=== PATIENT | female | born 1970 | race Two or more races ===

== ENCOUNTER 2020-06-10 16:01 | Outpatient (REF) | payer MEDICAID, SELFPAY ==
--- NOTE | ~2020-06-10 | MM_ITS ---
EXAMINATION: MM SCREENING DIGITAL BREAST TOMOSYNTHESIS, BILATERAL CLINICAL INFORMATION: Screening. Asymptomatic. The lifetime risk of breast cancer based on the Tyrer-Cuzick Model is 4%. COMPARISON: Mammography: 11/19/2018, 11/15/2017, 11/02/2016 TECHNIQUE: Digital breast tomosynthesis is performed in both the craniocaudal and mediolateral oblique views along with computer-aided detection (CAD). Synthesized 2D images are generated from the tomosynthesis. FINDINGS: There are scattered areas of fibroglandular density (ACR BI-RADS breast composition Category b). There are no significant masses, abnormal calcifications, or other abnormalities. Parenchymal pattern is similar to prior studies. No significant changes. MM/MM tomosynthesis screening BI IMPRESSION: No mammographic evidence of malignancy. ASSESSMENT: BI-RADS 1: Negative RECOMMENDATION: Routine annual mammography screening. This patient's information was entered into a reminder system with a target due date for their next mammogram.
== END 2020-06-10 16:02 | disposition home or self-care (01) ==
LOC: HO.MAMMO 16:01
PROVIDERS: PCP Internal Medicine; Visit Provider Internal Medicine
DX: Z12.31 Encounter for screening mammogram for malignant neoplasm of breast (principal)
CPT/HCPCS: 77063; 77067

== ENCOUNTER 2020-09-07 12:53 | Outpatient (REF) | payer MEDICAID, SELFPAY ==
[2020-09-13 22:47] LABS: HPV 16 RNA NOT DETECTED (NOT DETECTED); HPV mRNA E6/E7 rflx Detected (Not Detected)
== END 2020-09-07 12:54 | disposition home or self-care (01) ==
LOC: HO.LAB 12:53
PROVIDERS: PCP Internal Medicine; Visit Provider Obstetrics & Gynecology
DX: Z01.419 Encounter for gynecological examination (general) (routine) without abnormal findings (principal)
CPT/HCPCS: 87624; 87625; 88142

== ENCOUNTER 2020-09-24 13:05 | Outpatient (REF) | payer MEDICAID, SELFPAY | END 2020-09-24 13:06 | disposition home or self-care (01) | LOC: HO.LAB 13:05 | PROVIDERS: PCP Internal Medicine; Visit Provider Obstetrics & Gynecology | DX: R87.610 Atypical squamous cells of undetermined significance on cytologic smear of cervix (ASC-US) (principal); R87.810 Cervical high risk human papillomavirus (HPV) DNA test positive | CPT/HCPCS: 57420; 57456; 88305 ==

== ENCOUNTER 2020-10-11 14:21 | Outpatient (REF) | payer MEDICAID, SELFPAY | END 2020-10-11 14:22 | disposition home or self-care (01) | LOC: HO.LAB 14:21 | PROVIDERS: PCP Internal Medicine; Visit Provider Obstetrics & Gynecology | DX: R87.810 Cervical high risk human papillomavirus (HPV) DNA test positive (principal) | CPT/HCPCS: 57500; 57505; 88305 ==

== ENCOUNTER → 2020-10-25 13:12 | Outpatient (BNVA) | payer MEDICAID, SELFPAY | PROVIDERS: Visit Provider Obstetrics & Gynecology ==

== ENCOUNTER 2020-12-23 11:32 | Outpatient (REF) | payer MEDICAID, SELFPAY ==
--- NOTE | ~2020-12-23 | XR_ITS ---
EXAMINATION: XR CHEST XR RIBS, LEFT CLINICAL INFORMATION: Pleurodynia. COMPARISON: Chest radiographs dated 11/09/2018; left rib radiographs dated 09/18/2010. TECHNIQUE: Frontal and lateral views of the chest were obtained. 3 views of the left ribs were obtained. FINDINGS: Lungs are clear. No consolidation, pneumothorax, or pleural effusion. There is biapical pleural thickening. The cardiomediastinal silhouette and pulmonary vasculature are normal. Osseous structures are unremarkable. Ribs are intact. No fractures are identified. XR/XR chest 2V IMPRESSION: Unremarkable examination.
--- NOTE | ~2020-12-23 | XR_ITS ---
EXAMINATION: XR CHEST XR RIBS, LEFT CLINICAL INFORMATION: Pleurodynia. COMPARISON: Chest radiographs dated 11/09/2018; left rib radiographs dated 09/18/2010. TECHNIQUE: Frontal and lateral views of the chest were obtained. 3 views of the left ribs were obtained. FINDINGS: Lungs are clear. No consolidation, pneumothorax, or pleural effusion. There is biapical pleural thickening. The cardiomediastinal silhouette and pulmonary vasculature are normal. Osseous structures are unremarkable. Ribs are intact. No fractures are identified. XR/XR ribs LT 2V IMPRESSION: Unremarkable examination.
== END 2020-12-23 11:33 | disposition home or self-care (01) ==
LOC: HO.XRAY 11:32
PROVIDERS: PCP Internal Medicine; Visit Provider Family Medicine
DX: R07.81 Pleurodynia (principal); R09.1 Pleurisy; M81.0 Age-related osteoporosis without current pathological fracture
CPT/HCPCS: 71046; 71100

== ENCOUNTER → 2021-03-10 12:05 | Outpatient (BNVA) | payer MEDICAID, SELFPAY | PROVIDERS: PCP Internal Medicine; Visit Provider Obstetrics & Gynecology | DX: B37.2 Candidiasis of skin and nail (principal) | CPT/HCPCS: 99212 ==

== ENCOUNTER 2021-07-05 11:07 | Outpatient (REF) | payer MEDICAID, SELFPAY ==
--- NOTE | ~2021-07-05 | MM_ITS ---
EXAMINATION: MM SCREENING DIGITAL BREAST TOMOSYNTHESIS, BILATERAL CLINICAL INFORMATION: Screening. Asymptomatic. The lifetime risk of breast cancer based on the Tyrer-Cuzick Model is 7%. COMPARISON: Mammography: 06/10/2020, 11/19/2018, 11/15/2017 TECHNIQUE: Digital breast tomosynthesis is performed in both the craniocaudal and mediolateral oblique views along with computer-aided detection (CAD). Synthesized 2D images are generated from the tomosynthesis. FINDINGS: There are scattered areas of fibroglandular density (ACR BI-RADS breast composition Category b). There are no significant masses, abnormal calcifications, or other abnormalities. Parenchymal pattern is similar to prior studies. There is no developing density or architectural abnormality. Intramammary node again noted anterior 4:00 left breast. The axilla and skin contours are unremarkable. No significant changes. MM/MM tomosynthesis screening BI IMPRESSION: No mammographic evidence of malignancy. ASSESSMENT: BI-RADS 2: Benign RECOMMENDATION: Routine annual mammography screening. This patient's information was entered into a reminder system with a target due date for their next mammogram.
== END 2021-07-05 11:08 | disposition home or self-care (01) ==
LOC: HO.MAMMO 11:07
PROVIDERS: Visit Provider Internal Medicine
DX: Z12.31 Encounter for screening mammogram for malignant neoplasm of breast (principal)
CPT/HCPCS: 77063; 77067

== ENCOUNTER → 2021-07-07 15:32 | Outpatient (BNVA) | payer MEDICAID, SELFPAY | PROVIDERS: PCP Internal Medicine; Referring Provider Internal Medicine; Visit Provider Nurse Practitioner | DX: Z12.11 Encounter for screening for malignant neoplasm of colon (principal); K21.9 Gastro-esophageal reflux disease without esophagitis | CPT/HCPCS: 99212 ==

== ENCOUNTER 2021-07-08 14:48 | Outpatient (REF) | payer MEDICAID, SELFPAY ==
[2021-07-08 15:06] LABS: MANUAL DIFF FLAG NO
[2021-07-08 15:23] LABS: Basophils Percent Auto 0.4 % (0-2); Eosinophils Absolute Auto 0.1 X10*3/uL (0.0-0.4); Eosinophils Percent Auto 1.6 % (0-4); Hematocrit 42.4 % (37.0-47.0); Hemoglobin 13.8 g/dl (12.0-16.0); Imm Gran Abs Auto 0.02 X10*3/uL (0.00-0.03); Imm Gran Pct Auto 0.2 % (0.0-0.4); Lymphocytes Absolute Auto 1.9 X10*3/uL (1.2-4.9); Mean Corpuscular HGB Conc 32.5 g/dl (31.0-35.0); Mean Corpuscular Hemoglobin 29.7 pg (27.0-33.0); Mean Corpuscular Volume 91.2 fL (80.0-98.0); Mean Platelet Volume 10.8 fL (9.4-12.3); Monocytes Absolute Auto 0.5 X10*3/uL (0.1-1.2); Monocytes Percent Auto 5.6 % (2-11); Neutrophils Absolute Auto 5.6 x10*3/uL (2.0-8.3); Neutrophils Percent Auto 69.2 % (45-73); Platelet Count 335 X10*3/uL (160-400); Red Blood Count 4.65 X10*6/uL (4.20-5.50); Red Cell Distribution Width 12.7 % (11.0-16.0); White Blood Count 8.2 X10*3/uL (4.8-10.8)
[2021-07-08 15:54] LABS: Alanine Aminotransferase 12 U/L (0-31); Albumin Level 4.1 g/dL (3.5-5.0); Alkaline Phosphatase 127 U/L (39-117); Anion Gap 11 (12-20); Aspartate Amino Transferase 15 U/L (5-31); Bilirubin Total 1.1 mg/dL (0.0-1.0); Blood Urea Nitrogen 8 mg/dL (9-16); Calcium 9.8 mg/dL (8.4-10.2); Carbon Dioxide 29 mmol/L (22-29); Chloride 105 mmol/L (96-108); Estimated Glomerular Filt Rate > 60; Glucose Random 84 mg/dL (60-115); Potassium 4.2 mmol/L (3.3-5.1); Sodium 141 mmol/L (135-145); Total Protein 7.4 g/dL (6.5-8.0)
== END 2021-07-08 14:49 | disposition home or self-care (01) ==
LOC: HO.LAB 14:48
PROVIDERS: PCP Internal Medicine; Visit Provider Nurse Practitioner
DX: R10.13 Epigastric pain (principal)
CPT/HCPCS: 36415; 80053; 85025

== ENCOUNTER 2021-09-13 13:38 | Outpatient (REF) | payer MEDICAID, SELFPAY ==
[2021-09-19 09:05] LABS: HPV 16 RNA NOT DETECTED (NOT DETECTED); HPV mRNA E6/E7 rflx Detected (Not Detected)
== END 2021-09-13 13:39 | disposition home or self-care (01) ==
LOC: HO.LAB 13:38
PROVIDERS: Advanced Practice Midwife; PCP Internal Medicine; Visit Provider Obstetrics & Gynecology
DX: Z01.419 Encounter for gynecological examination (general) (routine) without abnormal findings (principal); Z11.51 Encounter for screening for human papillomavirus (HPV)
CPT/HCPCS: 87624; 87625; 88142

== ENCOUNTER 2021-10-04 11:18 | Day surgery (SDC) | payer MEDICAID, SELFPAY ==
[2021-09-28 15:34] VITALS: BMI 29.0
--- NOTE | 2021-10-03 08:47 | HO.ANESPROP2 ---
Documented by User: Domi Levine NP 10/03/21 08:49 HPI - Anesthesia Eval Consult details Narrative: 50yo F for Colonoscopy PMFSH Active Problems Active Problems: All Active Problems (Updated 09/13/21 @ 13:59 by Yayo Ron MD) Colon cancer screening (Acute) GERD (gastroesophageal reflux disease) (Acute) Skin candidiasis (Acute) ASCUS with positive high risk HPV (Acute) Well woman exam (Acute) Chronic sinusitis (Acute) Migraine (Acute) Vitamin D deficiency (Acute) Osteopenia (Acute) Past Medical History Medical History Chronic sinusitis Dysplasia of cervix, low grade (BETH 1) Migraine Osteopenia Vitamin D deficiency Family History Family History Father No problems noted. Mother Thyroid disease Osteoporosis Surgical History Surgical History H/O LEEP History of cholecystectomy Hx of abdominal hysterectomy Hx of section Hx of tonsillectomy Social History Social History Alcohol intake: never Patient Tobacco Use Status: Never used Tobacco Are you DNR?: No Advance Directives: No Advance Directives Information Provided: Yes Patient : No Meds Allergies Allergy/AdvReac Type Severity Reaction Status Date / Time risperidone Allergy Intermediate HIVES Verified 09/28/21 15:23 ibuprofen [From MOTRIN] Allergy Unknown STOMACH Verified 09/28/21 15:23 ACHE tramadol [TRAMADOL] AdvReac Intermediate GI PAIN Verified 09/28/21 15:23 shrimp and clams Allergy Unknown unk Uncoded 09/28/21 15:23 Home Medications Medication Instructions Recorded Confirmed Last Taken Type calcium carbonate 215 mg calcium 215 mg PO TID 09/07/20 09/28/21 Unknown History (500 mg) chewable tablet (Antacid Calcium) cholecalciferol (vitamin D3) 10 10 mcg PO DAILY 09/07/20 09/28/21 Unknown History mcg (400 unit) capsule epinephrine 0.3 mg/0.3 mL IM DIRECTED 07/07/21 Unknown History injection, auto-injector triamcinolone acetonide 55 mcg 2 spray INTRANASAL DAILY 07/07/21 09/28/21 Unknown History nasal spray aerosol cetirizine 10 mg tablet 1 tab PO DAILY 09/28/21 09/28/21 Unknown History nystatin 100,000 unit/gram topical TOPICAL BID 09/28/21 09/28/21 Unknown History cream Exam Exam Date and Time: October 03, 2021 0847 Height,Weight and Vital Signs: Height 5 ft 4 in Weight 76.657 kg Pertinent Lab Results Pertinent Lab Results: Laboratory Tests 07/08/21 07/08/21 15:05 15:05 WBC 8.2 Hgb 13.8 Hct 42.4 Plt Count 335 Sodium 141 Potassium 4.2 Chloride 105 Carbon Dioxide 29 BUN 8 L Creatinine 0.71 Assessment and Plan Assessment Anesthesia Assessment: Chart Reviewed Documented by User: Beatriz Maher MD 10/04/21 12:43 [facility] Past Medical History Medical History Chronic sinusitis Dysplasia of cervix, low grade (BETH 1) Migraine Osteopenia Vitamin D deficiency Family History Family History Father No problems noted. Mother Thyroid disease Osteoporosis Surgical History Surgical History H/O LEEP History of cholecystectomy Hx of abdominal hysterectomy Hx of section Hx of tonsillectomy History of Problems with Anesthesia: No Social History Social History Alcohol intake: never Patient Tobacco Use Status: Never used Tobacco Are you DNR?: No Advance Directives: No Advance Directives Information Provided: Yes Patient : No Meds Allergies Allergy/AdvReac Type Severity Reaction Status Date / Time risperidone Allergy Intermediate HIVES Verified 09/28/21 15:23 ibuprofen [From MOTRIN] Allergy Unknown STOMACH Verified 09/28/21 15:23 ACHE tramadol [TRAMADOL] AdvReac Intermediate GI PAIN Verified 09/28/21 15:23 shrimp and clams Allergy Unknown unk Uncoded 09/28/21 15:23 Home Medications Medication Instructions Recorded Confirmed Last Taken Type calcium carbonate 215 mg calcium 215 mg PO TID 09/07/20 09/28/21 Unknown History (500 mg) chewable tablet (Antacid Calcium) cholecalciferol (vitamin D3) 10 10 mcg PO DAILY 09/07/20 09/28/21 Unknown History mcg (400 unit) capsule epinephrine 0.3 mg/0.3 mL IM DIRECTED 07/07/21 Unknown History injection, auto-injector triamcinolone acetonide 55 mcg 2 spray INTRANASAL DAILY 07/07/21 09/28/21 Unknown History nasal spray aerosol cetirizine 10 mg tablet 1 tab PO DAILY 09/28/21 09/28/21 Unknown History nystatin 100,000 unit/gram topical TOPICAL BID 09/28/21 09/28/21 Unknown History cream Exam Airway Mallampati Class: II TM Dist: >3cm Neck ROM: Full Loose/Missing/Broken Teeth: No Heart: RRR Lungs: CTA Assessment and Plan Assessment Anesthesia Assessment: Anesthesia Plan Discussed Final Anesthetic Review History of Problems with Anesthesia: No NPO: Yes ASA Class: II Final Preanesthetic Review: Meds/Allgs Chart Reviewed, Consent Obtained/Reviewed and Anes Risks/Benef Reviewed Patient Risk: Low Procedure Risk: Low Anesthetic Plan Anesthetic Plan: MAC: Disposition: Standard PACU
[2021-10-04 11:38] VITALS: BP 121/87; PULSE 93; RESP 17; TEMP 36.3; O2SAT 97
[2021-10-04] MEDS: Lactated Ringers 1,000 ML 100 ML IVCONT (11:55)
--- NOTE | 2021-10-04 12:19 | MHC.SHP ---
Pre-Procedural Eval Section A Date of Service: 10/04/21 Section B Chief Complaint: screening Relevant Family History (Specify if Yes): No Relevant Social History: None Present Medications: see Short Stay Collaborative assessment Medical History: Significant History (Chronic sinusitis Dysplasia of cervix, low grade (BETH 1) Migraine Osteopenia Vitamin D deficiency) History of Previous Operations: Relevant previous surgery/procedure and date(s) ( H/O LEEP History of cholecystectomy Hx of abdominal hysterectomy Hx of section Hx of tonsillectomy) Allergies: Allergies Allergy/AdvReac Type Severity Reaction Status Date / Time risperidone Allergy Intermediate HIVES Verified 09/28/21 15:23 ibuprofen [From MOTRIN] Allergy Unknown STOMACH Verified 09/28/21 15:23 ACHE tramadol [TRAMADOL] AdvReac Intermediate GI PAIN Verified 09/28/21 15:23 shrimp and clams Allergy Unknown unk Uncoded 09/28/21 15:23 Review of Systems Sugical H&P ROS: Negative: Constitution, Cardiovascular, Respiratory, Neurological, Psychiatric, Hem-Onc, Allergic/Immunologic, Gastrointestinal, Genitourinary, Musculoskeletal, Integumentary, Endocrine and Eyes/Ears/Nose/Throat Exam Surgical H&P Exam: Normal: HEENT, Normal: Heart, Normal: Lungs, Normal: Extremities, Normal: Abdomen, Normal: Skin and Normal: Neurological Plan Diagnosis/Plan: Unchanged I have reviewed the history and physical and performed a pertinent physical examination on my patient. No changes have occurred unless specified.
--- NOTE | 2021-10-04 12:23 | P.BOP_ITS ---
Brief Operative Note Date of Service: 10/04/21 Pre-op diagnosis: screening colonoscopy Post-op diagnosis: same Procedure: see op note Surgeon: Ramón Rossi MD Anesthesia: MAC Was an Surface Supply Breathing Apparatus used for this Procedure?: No Estimated blood loss (mL): 0 Condition: stable Disposition: PACU
--- NOTE | 2021-10-04 12:23 | W.PM.OPN ---
Operative Note Operative Note Date of Service: 10/04/21 Narrative: Operative Information Procedure Description: Colonoscopy Indication: screening colonoscopy Anesthesia: MAC COLONOSCOPY Instrument: Olympus variable stiffness pediatric scope 190L Colonoscopy Monitoring: Vital signs and clinical assessment, continuous EKG monitoring, Pulse oximetry, Carbon Dioxide monitoring and blood pressure monitoring were done throughout the procedure. Colon withdrawal time was [] minutes. Procedure: The patient was placed in the left lateral decubitis position and pre-procedure medications were administered. After a digital rectal examination of the ano-rectum, the video colonoscope was inserted into the rectum and advanced through the colon to the cecum/TI. The colonoscope was slowly withdrawn in a retrograde panoramic fashion and the colon mucosa was carefully examined including a retroflexed view of the rectum. Findings and interventions are described below. Procedure Difficulty: moderate Findings: Terminal Ileum-normal Cecum:normal Ascending Colon:x 2 sessile polyps 15-18 mm removed with cold snare, with one of them raised with ORISE injection. The edges of one was ablated with sof ttip coag and then x 2 clips applied for hemostasis with hemospray. Transverse Colon -normal Descending Colon: x1 sessile polyp 18 mm removed with hot snare and clipped x 2 for hemostasis. Sigmoid Colon: normal Rectum: Retroflexion with small internal hemorrhoids, grade I Anorectum - normal Colon preparation: Dickinson Bowel Preparation Scale Right colon; 2 Transverse colon: 2 Left colon; 2 (0 = Unprepared colon segment with mucosa not seen due to solid stool that cannot be cleared. 1 = Portion of mucosa of the colon segment seen, but other areas of the colon segment not well seen due to staining, residual stool and/or opaque liquid. 2 = Minor amount of residual staining, small fragments of stool and/or opaque liquid, but mucosa of colon segment seen well. 3 = Entire mucosa of colon segment seen well with no residual staining, small fragments of stool or opaque liquid) Impression and Post Procedure Diagnosis: polyps internal hemorrhoids Plan: High fiber diet leaflet Avoid straining at stool, epsom salts and sitz bath, anusol supps or cream Repeat Colonoscopy in 8-12 months due to large polyps removed today or earlier if clinically indicated Above findings were reviewed with the patient and relevant handouts were provided if indicated.
[2021-10-04 13:45] VITALS: BP 106/66; PULSE 83; RESP 16; TEMP 36.2; O2SAT 97
[2021-10-04 14:00] VITALS: BP 115/77; PULSE 83; RESP 16; O2SAT 98
[2021-10-04 14:15] VITALS: BP 114/79; PULSE 69; RESP 16; TEMP 36.6; O2SAT 100
== END 2021-10-04 14:30 | disposition home or self-care (01) ==
PROVIDERS: PCP Internal Medicine; Visit Provider Internal Medicine Gastroenterology
PROC: 0DJD8ZZ Inspection of Lower Intestinal Tract, Via Natural or Artificial Opening Endoscopic (ICD-10-PCS; CPT 45378; principal; 2021-10-04 12:50)
DX: D12.2 Benign neoplasm of ascending colon (principal); D12.4 Benign neoplasm of descending colon; K64.0 First degree hemorrhoids; Z88.8 Allergy status to other drugs, medicaments and biological substances; K21.9 Gastro-esophageal reflux disease without esophagitis; J32.9 Chronic sinusitis, unspecified; G43.909 Migraine, unspecified, not intractable, without status migrainosus; M85.80 Other specified disorders of bone density and structure, unspecified site; E55.9 Vitamin D deficiency, unspecified; Z12.11 Encounter for screening for malignant neoplasm of colon; Z90.49 Acquired absence of other specified parts of digestive tract; Z87.410 Personal history of cervical dysplasia
CPT/HCPCS: 45385; 45381; 88305

== ENCOUNTER → 2021-10-17 14:03 | Outpatient (BNVA) | payer MEDICAID, SELFPAY | PROVIDERS: PCP Internal Medicine; Visit Provider Nurse Practitioner | DX: D12.2 Benign neoplasm of ascending colon (principal); D12.4 Benign neoplasm of descending colon; Z98.890 Other specified postprocedural states | CPT/HCPCS: 99212 ==

== ENCOUNTER 2021-11-22 18:09 | Emergency (ER) | payer MEDICAID, SELFPAY ==
--- NOTE | ~2021-11-22 | XR_ITS ---
EXAMINATION: XR SHOULDER, RIGHT CLINICAL INFORMATION: Pain, decreased range of motion COMPARISON: None TECHNIQUE: AP external rotation, Grashey, scapular Y, and axillary views of the right shoulder. FINDINGS: Osteopenia. No fracture. Glenohumeral and acromioclavicular alignment is anatomic with normal joint space. No abnormal soft tissue calcifications. XR/XR shoulder RT min 2V IMPRESSION: No evidence of acute osseous abnormality.
[2021-11-22 19:42] VITALS: BP 123/84; PULSE 81; RESP 16; TEMP 36.1; O2SAT 96; BMI 28.8
--- NOTE | 2021-11-22 20:27 | ED.GENADULT ---
HPI - General Adult General Chief complaint: Extremity Problem Stated complaint: R side pain radiating to arm & side Time Seen by Provider: 11/22/21 20:09 Source: patient Mode of arrival: ambulatory Limitations: no limitations History of Present Illness HPI narrative: 51 yo female with history of GERD, migraines, chronic back pain, osteoporosis who presents to the ER with acute onset of shooting right sided shoulder pain that started earlier this afternoon when she went to stand up from using the bathroom. She reports putting pressure on her right hand to assist herself in standing up off of the toilet when she felt shooting pain in her right shoulder going up into her head and neck and down her arm. She reports the pain is worse when she moves her right arm and it has been constant since this happened at around 4pm. She denies any falls or trauma. No numbness or tingling. No weakness. No neck pain. Mild headache. She took tylenol with no improvement. MD complaint: right shoulder pain x4 hours Onset (ago): hour(s) Location: right and upper extremity Radiation: neck and extremity Severity: severe Severity scale (1-10): 9 Quality: aching and sharp Pain Consistency: constant Relieving factors: immobilization Exacerbating factors: movement Associated symptoms: denies other symptoms Treatments prior to arrival: none Related Data Home Medications Medication Instructions Recorded Confirmed calcium carbonate 215 mg calcium 215 mg PO TID 09/07/20 09/28/21 (500 mg) chewable tablet (Antacid Calcium) cholecalciferol (vitamin D3) 10 10 mcg PO DAILY 09/07/20 09/28/21 mcg (400 unit) capsule epinephrine 0.3 mg/0.3 mL IM DIRECTED 07/07/21 injection, auto-injector triamcinolone acetonide 55 mcg 2 spray intranasal DAILY 07/07/21 09/28/21 nasal spray aerosol cetirizine 10 mg tablet 1 tab PO DAILY 09/28/21 09/28/21 nystatin 100,000 unit/gram topical topical BID 09/28/21 09/28/21 cream Previous Rx's Medication Instructions Recorded famotidine 40 mg tablet (Pepcid) 40 mg PO BEDTIME #30 tabs 07/07/21 cyclobenzaprine 10 mg tablet 10 mg PO TID PRN muscle spasm #10 11/22/21 tabs ibuprofen 600 mg tablet 600 mg PO Q8H PRN pain #10 tabs 11/22/21 lidocaine 5 % topical patch 1 patch topical DAILY #15 ea 11/22/21 Allergies Allergy/AdvReac Type Severity Reaction Status Date / Time risperidone Allergy Intermediate HIVES Verified 10/17/21 14:09 ibuprofen [From MOTRIN] Allergy Unknown STOMACH Verified 10/17/21 14:09 ACHE tramadol [TRAMADOL] AdvReac Intermediate GI PAIN Verified 10/17/21 14:09 shrimp and clams Allergy Unknown unk Uncoded 10/17/21 14:09 Review of Systems Review of Systems: Constitutional: No Fever, No Chills ENT/Mouth: No sore throat, No Rhinorrhea Cardiovascular: No Chest Pain, No SOB Respiratory: No Cough, No Sputum Gastrointestinal: No Nausea, No Vomiting, No Diarrhea, No abdominal Pain Genitourinary: No Dysuria, No Urinary Frequency, No Hematuria Musculoskeletal: + joint pain, + Myalgias Skin: No Skin Lesions, No rash Neuro: No Weakness, No Numbness, No Dizziness, + Headache Psych: No Anxiety/Panic, No Depression Heme/Lymph: No Bruising, No Lymphadenopathy PMFSH Past Medical History Medical History (Updated 11/22/21 @ 21:07 by JOY Rivera) Chronic sinusitis Dysplasia of cervix, low grade (BETH 1) Migraine Osteopenia Vitamin D deficiency Surgical History (Updated 10/17/21 @ 14:11 by RAJNI Leroy) H/O LEEP History of cholecystectomy Hx of abdominal hysterectomy Hx of section Hx of colonoscopy Hx of tonsillectomy Family History Family History Father No problems noted. Mother Thyroid disease Osteoporosis Social History Social History Alcohol intake: never Patient Tobacco Use Status: Never used Tobacco Advance Directives: No Advance Directives Information Provided: No Physical Exam ED Vital Signs: Vital Signs - 24 hr 11/22/21 19:42 Temperature 97 F Pulse Rate 81 Respiratory Rate 16 Blood Pressure 123/84 Pulse Oximetry 96 Oxygen Delivery Method Room Air BMI result Body Mass Index 28.8 Appearance: Alert. Oriented X3. No acute distress. HEENT: normal inspection CVS: Normal heart rate and rhythm. Pulses normal. Respiratory: No respiratory distress. Skin: Skin warm and dry. Normal skin color. Normal skin turgor. No rashes. Extremities: normal inspection of the right upper extremity. pain with passive ROM at 90 degrees. tenderness along the middle and distal clavicle with no skin changes or deformity. pain with extension to 180 degrees. negative empty can test. NV intact distally. equal log marker strength bilaterally. Neuro: Oriented X 3. No motor deficit. No sensory deficit. Course Course Course Narrative: 51 yo female presenting with right sided shoulder pain that radiates to the neck and down the arm. No chest pain or SOB. Worse with movement, palpation and position changes consistent with MSK injury or etiology. Possible cervical radiculopathy as well. Neurologically intact. XR today is normal. Her mobility is reassuring. Will plan start NSAID and muscle relaxer, avoid a sling for now. She will follow up with her PCP and ortho if no improvement with conservative management. associate professor of counseling used to discuss plan and return precautions, all questions were answered. Discharge Plan Discharge Clinical Impression: Acute pain of right shoulder Patient Disposition: Home, Self-Care Instructions: Shoulder Pain (ED) Additional Instructions: Your x-ray today was normal. Recommend trial of the prescribed anti-inflammatory pain medication, muscle relaxer and pain patch - use as directed Recommend following up with your doctor and Orthopedics if no improvement - name and number below If you develop new or worsening symptoms call 911 or come back to the ER for further evaluation. Tu radiograf?a de hoy fue normal. Se recomienda probar el medicamento antiinflamatorio para el dolor, el relajante muscular y el parche para el dolor recetados; util?celos seg?n las indicaciones. Recomiende un seguimiento con stewart m?dico y ortopedia si no hay mejor?a: nombre y n?galo a continuaci?n Si desarrolla s?ntomas nuevos o que empeoran, llame al 911 o regrese a la jadiel de emergencias para cezar evaluaci?n adicional. Prescriptions: New cyclobenzaprine 10 mg tablet 10 mg PO TID PRN (Reason: muscle spasm) Qty: 10 0RF ibuprofen 600 mg tablet 600 mg PO Q8H PRN (Reason: pain) Qty: 10 0RF lidocaine 5 % adhesive patch,medicated 1 patch topical DAILY Qty: 15 0RF Rx Instructions: leave on most painful area for up to 12 hrs No Action cetirizine 10 mg tablet 1 tab PO DAILY nystatin 100,000 unit/gram cream topical BID cholecalciferol (vitamin D3) 10 mcg (400 unit) capsule 10 mcg PO DAILY Antacid Calcium 215 mg calcium (500 mg) tablet,chewable 215 mg PO TID epinephrine 0.3 mg/0.3 mL auto-injector IM DIRECTED triamcinolone acetonide 55 mcg aerosol,spray 2 spray intranasal DAILY famotidine [Pepcid] 40 mg tablet 40 mg PO BEDTIME Qty: 30 6RF Referrals: Ang Melissa PA-C [Physician Assistant [facility]] - (right shoulder pain, XR normal) Discharge Date/Time: 11/22/21 21:52
[2021-11-22] MEDS: oxyCODONE HCl Immed Release 5 MG TABLET PO (20:58)
== END 2021-11-22 21:52 | disposition home or self-care (01) ==
PROVIDERS: Emergency Provider Emergency Medicine; PCP Internal Medicine
DX: M25.511 Pain in right shoulder (principal); M85.80 Other specified disorders of bone density and structure, unspecified site
CPT/HCPCS: 73030; 99283

== ENCOUNTER 2021-11-30 14:34 | Outpatient (REF) | payer MEDICAID, SELFPAY | END 2021-11-30 14:35 | disposition home or self-care (01) | LOC: HO.LAB 14:34 | PROVIDERS: PCP Internal Medicine; Visit Provider Obstetrics & Gynecology | DX: R87.820 Cervical low risk human papillomavirus (HPV) DNA test positive (principal) | CPT/HCPCS: 57456; 88305 ==

== ENCOUNTER → 2021-12-08 14:32 | Outpatient (BNVA) | payer MEDICAID, SELFPAY | PROVIDERS: PCP Internal Medicine; Visit Provider Physician Assistant | DX: M54.12 Radiculopathy, cervical region (principal) | CPT/HCPCS: 99202 ==

== ENCOUNTER → 2021-12-20 12:45 | Outpatient (BNVA) | payer MEDICAID, SELFPAY | PROVIDERS: PCP Internal Medicine; Visit Provider Obstetrics & Gynecology | DX: N87.0 Mild cervical dysplasia (principal) | CPT/HCPCS: 99212 ==

== ENCOUNTER 2022-08-22 13:59 | Outpatient (REF) | payer MEDICAID, SELFPAY ==
--- NOTE | ~2022-08-22 | MM_ITS ---
EXAMINATION: MM SCREENING DIGITAL BREAST TOMOSYNTHESIS, BILATERAL CLINICAL INFORMATION: Screening. Asymptomatic. The lifetime risk of breast cancer based on the Tyrer-Cuzick Model is 3.4%. COMPARISON: Mammography: July 05, 2021 and studies dating back to September 20, 2015 TECHNIQUE: Digital breast tomosynthesis is performed in both the craniocaudal and mediolateral oblique views along with computer-aided detection (CAD). Synthesized 2D images are generated from the tomosynthesis. FINDINGS: There are scattered areas of fibroglandular density (ACR BI-RADS breast composition Category b). There are no significant masses, abnormal calcifications, or other abnormalities. MM/MM tomosynthesis screening BI IMPRESSION: No significant changes ASSESSMENT: BI-RADS 1: Negative RECOMMENDATION: Routine annual mammography screening. This patient's information was entered into a reminder system with a target due date for their next mammogram.
== END 2022-08-22 14:00 | disposition home or self-care (01) ==
LOC: HO.MAMMO 13:59
PROVIDERS: PCP Internal Medicine; Visit Provider Internal Medicine
DX: Z12.31 Encounter for screening mammogram for malignant neoplasm of breast (principal)
CPT/HCPCS: 77063; 77067

== ENCOUNTER 2022-11-21 16:14 | Outpatient (REF) | payer MEDICAID, SELFPAY ==
[2022-11-21 18:03] LABS: MANUAL DIFF FLAG NO
[2022-11-21 18:11] LABS: Basophils Absolute Auto 0.1 X10*3/uL (0.0-0.2); Basophils Percent Auto 0.6 % (0-2); Eosinophils Absolute Auto 0.1 X10*3/uL (0.0-0.4); Eosinophils Percent Auto 0.6 % (0-4); Hematocrit 43.8 % (37.0-47.0); Hemoglobin 13.8 g/dl (12.0-16.0); Imm Gran Abs Auto 0.02 X10*3/uL (0.00-0.03); Imm Gran Pct Auto 0.2 % (0.0-0.4); Lymphocytes Absolute Auto 1.7 X10*3/uL (1.2-4.9); Lymphocytes Percent Auto 21.5 % (20-40); Mean Corpuscular HGB Conc 31.5 g/dl (31.0-35.0); Mean Corpuscular Hemoglobin 29.9 pg (27.0-33.0); Mean Corpuscular Volume 94.8 fL (80.0-98.0); Mean Platelet Volume 11.4 fL (9.4-12.3); Monocytes Absolute Auto 0.5 X10*3/uL (0.1-1.2); Monocytes Percent Auto 6.2 % (2-11); Neutrophils Absolute Auto 5.7 x10*3/uL (2.0-8.3); Neutrophils Percent Auto 70.9 % (45-73); Platelet Count 320 X10*3/uL (160-400); Red Blood Count 4.62 X10*6/uL (4.20-5.50); Red Cell Distribution Width 12.6 % (11.0-16.0); White Blood Count 8.1 X10*3/uL (4.8-10.8)
[2022-11-21 19:04] LABS: Estimated Average Glucose 97 mg/dL
[2022-11-21 20:17] LABS: Alanine Aminotransferase 14 U/L (0-31); Albumin Level 4.1 g/dL (3.5-5.0); Alkaline Phosphatase 119 U/L (39-117); Anion Gap 13 (12-20); Aspartate Amino Transferase 15 U/L (5-31); Bilirubin Direct 0.4 mg/dL (0.0-0.5); Blood Urea Nitrogen 9 mg/dL (9-16); Calcium 9.6 mg/dL (8.4-10.2); Carbon Dioxide 28 mmol/L (22-29); Chloride 105 mmol/L (96-108); Cholesterol 163 mg/dL; Estimated Glomerular Filt Rate > 60; Glucose Random 84 mg/dL (60-115); HDL Cholesterol 61 mg/dL; LDL Cholesterol Calculated 74 mg/dl; Potassium 4.6 mmol/L (3.3-5.1); Sodium 141 mmol/L (135-145); Total Protein 7.8 g/dL (6.5-8.0); Triglycerides 142 mg/dL
== END 2022-11-21 16:15 | disposition home or self-care (01) ==
LOC: HO.HHCL 16:14
PROVIDERS: Visit Provider Internal Medicine
DX: Z00.00 Encounter for general adult medical examination without abnormal findings (principal)
CPT/HCPCS: 36415; 80048; 80061; 80076; 83036; 85025

== ENCOUNTER 2022-11-27 14:34 | Outpatient (AMB) | payer MEDICAID, SELFPAY ==
[2022-11-27 15:05] VITALS: BP 112/80; BMI 28.7
--- NOTE | 2022-11-27 15:05 | MHC.OFFVIS ---
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 No complaints. Last Pap/HPV was negative/HPV positive, colpo biopsy/ECC showed BETH 1 Last Mammogram was BI-RADS 1 in 08/20 Last Colonoscopy was done in 10/19, the recommendation was to repeat colonoscopy in 04/21 [facility] Medical History Chronic sinusitis Dysplasia of cervix, low grade (BETH 1) Migraine Osteopenia Vitamin D deficiency Surgical History H/O LEEP History of cholecystectomy Hx of abdominal hysterectomy Hx of section Hx of colonoscopy Hx of tonsillectomy Family History Father No problems noted. 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 Female Reproductive History Menstrual Age of Menarche: 14 Review of Systems Const All systems reviewed & are unremarkable except as noted in HPI and below Card Reports as per HPI Resp Reports as per HPI GI Reports as per HPI and Reports no additional complaints Reports as per HPI Physical Exam Vital Signs: Last Vital Signs BP 112/80 11/27/22 15:05 BMI result Body Mass Index 28.7 Const General: cooperative, healthy appearing and comfortable Chest Chest palpation & inspection: normal inspection of the chest and normal palpation of entire chest wall Breast/axilla inspection: normal inspection of the breasts and normal inspection of the axillae Breast/axilla palpation: normal palpation of the breasts, normal palpation of the axillae and no axillary lymphadenopathy Resp Effort & Inspection: normal respiratory effort Auscultation: clear to auscultation bilaterally Percussion: percussion normal Cardio Palpation: normal PMI Rate: regular rate Rhythm: regular rhythm Heart sounds: no murmurs and no rubs Peripheral pulses: Peripheral pulses 2+ throughout GI Inspection: Yes normal to inspection Palpation (GI): Soft to palpation, nontender, no guarding, not rigid and No hepatosplenomegaly present Percussion: Yes normal to percussion Auscultation: normal bowel sounds Rectal Exam - Female: deferred General: Yes bladder normal to palpation External Female Exam: No lesion Speculum Exam - Vagina: normal appearance of the vagina, normal vaginal discharge and not erythematous Speculum Exam - Cervix: Cervix absent Bimanual exam- vagina & uterus: bladder normal to palpation and uterus absent Assessment & Plan Assessment & Plan (1) Well woman exam: Code(s): Z01.419 - Encounter for gynecological examination (general) (routine) without abnormal findings Plan: Co testing done. Counseled the patient about the recommended dietary allowance of 1200 mg of Calcium & 600 IU of vitamin D. Instruction given to patient to schedule his screen Mammogram in 08/21, will refer the patient to GI to schedule her next screening colonoscopy . The patient was instructed to perform monthly self-breast exams and schedule annual exam in a year; all questions answered and the patient verbalized understanding. Orders: Referrals Gastroenterology Referral D12.6 - Benign neoplasm of colon, unspecified Coding Level of Care Code Est Pt Prev Care 40-64y(51386) Diagnoses Well woman exam Z01.419
== END 2022-11-28 16:13 | disposition home or self-care (01) ==
LOC: HO.HWS 14:34
PROVIDERS: PCP Internal Medicine; Visit Provider Obstetrics & Gynecology
DX: Z01.419 Encounter for gynecological examination (general) (routine) without abnormal findings (principal)
CPT/HCPCS: 99396

== ENCOUNTER 2022-11-27 14:34 | Outpatient (REF) | payer MEDICAID, SELFPAY ==
[2022-12-06 07:44] LABS: HPV 16 RNA NOT DETECTED (NOT DETECTED); HPV mRNA E6/E7 rflx Detected (Not Detected)
== END 2022-11-27 14:35 | disposition home or self-care (01) ==
LOC: HO.LNP 14:34
PROVIDERS: PCP Internal Medicine; Visit Provider Obstetrics & Gynecology
DX: Z01.419 Encounter for gynecological examination (general) (routine) without abnormal findings (principal); N87.0 Mild cervical dysplasia; D12.6 Benign neoplasm of colon, unspecified
CPT/HCPCS: 87624; 87625; 88142

== ENCOUNTER 2022-12-18 14:26 | Outpatient (AMB) | payer MEDICAID, SELFPAY ==
--- NOTE | 2022-12-18 14:34 | A.OFFVIS_ITS ---
Intake Vital Signs 12/18/22 14:35 Height 5 ft 4 in Weight 167 lb BMI 28.7 BP 129/79 Blood Pressure Location Lt brachial Position Sitting Respiration 14 Pulse 80 Pulse Source Pulse Oximeter Intake Visit Reasons: Chronic midline low back pain Refrigeration Manager Required: Yes Refrigeration Manager Name: [id number] Allergies risperidone Allergy (Intermediate, Verified 12/18/22 14:38) HIVES ibuprofen [From MOTRIN] Allergy (Unknown, Verified 12/18/22 14:38) STOMACH ACHE tramadol [TRAMADOL] Adverse Reaction (Intermediate, Verified 12/18/22 14:38) GI PAIN shrimp and clams Allergy (Unknown, Uncoded 12/18/22 14:38) unk Medication List - Last Reconciled 12/18/22 by Michelle Nichole LPN calcium carbonate (Antacid Calcium) 215 mg PO TID cholecalciferol (vitamin D3) 10 mcg PO DAILY cyclobenzaprine 10 mg PO TID PRN epinephrine IM DIRECTED famotidine (Pepcid) 40 mg PO BEDTIME lidocaine 5% 1 patch topical DAILY nystatin topical BID triamcinolone acetonide 2 sprays intranasal DAILY HPI Chronic midline low back pain HPI Details 52-year-old female presenting today for a new patient evaluation of chronic midline low back pain and radiating neck pain A certified heel builder machine was present during the visit. The patient has a medical history of chronic lower back pain. She denies any prior neck injuries. 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 During today's visit, she reports that her neck pain radiating into the arm is not too bothersome. Her most bothersome symptom at this time is her low back pain that radiates into her lower extremity. 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 She has tried physical therapy for back in the past with no benefits. She attended seven sessions of physical therapy. She also states she underwent facet injections through [facility] in [place] which were not very helpful. [facility] Medical History Chronic sinusitis Dysplasia of cervix, low grade (BETH 1) Migraine Osteopenia Vitamin D deficiency Surgical History H/O LEEP History of cholecystectomy Hx of abdominal hysterectomy Hx of section Hx of colonoscopy Hx of tonsillectomy Family History Father No problems noted. 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 Alert and oriented. Mood and affect appropriate. Follows and participates in conversation appropriately. Respiratory effort is unlabored. Able to transition from sit to stand unassisted. Ambulates with bilaterally normal heel strike and toe off. Lumbar extension is severely limited. There is significant tenderness to palpation overlying the facet joints in the lumbar spine as well as the sacroiliac joints bilaterally. Facet loading is positive on both sides. Results Reviewed Results Reviewed: 11/22/21: XR SHOULDER, RIGHT FINDINGS: Osteopenia. No fracture. Glenohumeral and acromioclavicular alignment is anatomic with normal joint space. No abnormal soft tissue calcifications. IMPRESSION: No evidence of acute osseous abnormality. Assessment & Plan Assessment & Plan (1) Lumbar radicular pain: Code(s): M54.16 - Radiculopathy, lumbar region Plan 52-year-old with low back and radicular symptoms not responsive to physical therapy and conservative measures including muscle relaxants and NSAIDs. Ordered an MRI scan of the lumbar spine for further evaluation. For the time being, I recommend taking gabapentin 300 mg QD at night. The patient will follow up as scheduled for review of the MRI results. Scribed for Dr. Hernandez by Dioni Medina, medical collections representative, on 12/18/2022. I, Dr. Hernandez, have personally reviewed and agree with the information entered by the scribe. Orders: Orders MR lumbar spine wo con Today M54.16 - Radiculopathy, lumbar region Medications: New gabapentin 300 mg PO BEDTIME 30 caps 2RF Coding Level of Care Code New Pt Level 4 (63177) Diagnoses Lumbar radicular pain M54.16
[2022-12-18 14:35] VITALS: BP 129/79; PULSE 80; RESP 14; BMI 28.7
== END 2022-12-18 15:00 | disposition home or self-care (01) ==
PROVIDERS: PCP Internal Medicine; Visit Provider Internal Medicine
DX: M54.16 Radiculopathy, lumbar region (principal)
CPT/HCPCS: 99204

== ENCOUNTER → 2022-12-18 14:26 | Outpatient (BNVA) | payer MEDICAID, SELFPAY | PROVIDERS: PCP Internal Medicine; Visit Provider Internal Medicine | DX: M54.16 Radiculopathy, lumbar region (principal); M85.80 Other specified disorders of bone density and structure, unspecified site; E55.9 Vitamin D deficiency, unspecified | CPT/HCPCS: 99202 ==

== ENCOUNTER 2023-01-19 15:13 | Outpatient (AMB) | payer MEDICAID, SELFPAY ==
--- NOTE | 2023-01-19 15:16 | A.OFFVIS_ITS ---
Intake Vital Signs 01/19/23 15:21 Height 5 ft 4 in Weight 165 lb BMI 28.3 BP 116/64 Blood Pressure Location Lt brachial Position Sitting Pulse 84 Intake Visit Reasons: F/U colonoscopy screening Intake Note: Patient follow up tubular adenoma of colon and pre colonoscopy screening. Patient cc: diarrhea on and off and denies any other GI issues. Cad Programmer Required: No Accompanied by: Self / Same As Patient Allergies risperidone Allergy (Intermediate, Verified 01/23/23 15:15) HIVES ibuprofen [From MOTRIN] Allergy (Unknown, Verified 01/23/23 15:15) STOMACH ACHE tramadol [TRAMADOL] Adverse Reaction (Intermediate, Verified 01/23/23 15:15) GI PAIN shrimp and clams Allergy (Unknown, Uncoded 01/23/23 15:15) unk HPI F/U colonoscopy screening HPI Details Assessment & Plan (1) Tubular adenoma of colon: ?Comment: 2 very large TA's 09/2021 repeat 6-12 mo nths ?Code(s): D12.6 - Benign neoplasm of colon, unspecified ?Plan: Wallisian #[id number] Miranda She tolerated the procedure well.? She did not have a bowel movement the day after the procedure but then her bowels returned to normal 2 days afterwards. The procedure needs to be repeated in 6-12 months due to the very large size of the adenoma. She is agreeable to this. I will see her in 6 months at that time we will order her repeat colonoscopy.? THE PROCEDURE WAS 09/2021 LABS: Laboratory Tests 11/21/22 16:20 WBC 8.1 Hgb 13.8 Hct 43.8 Plt Count 320 Estimated GFR > 60 Total Bilirubin 1.0 Direct Bilirubin 0.4 AST 15 ALT 14 Alkaline Phosphata se 119 H TODAY'S VISIT Wallisian #[id number] Binh She has no new health problems except for back pain. She will be having an MRI soon. She continues to do well on her bid famotidine for her GERD. There are no prior problems with anesthesia or sedation. She denies any respiratory or cardiac problems. No ID problems. There is no known FHX or crc or polyps. The I will see her in 6 months and of course after the colonoscopy. [facility] Medical History Dysplasia of cervix, low grade (BETH 1) Chronic sinusitis Migraine Vitamin D deficiency Osteopenia Surgical History Hx of colonoscopy History of cholecystectomy H/O LEEP Hx of tonsillectomy Hx of abdominal hysterectomy Hx of section Family History Father No problems noted. 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 Female Reproductive History Menstrual Age of Menarche: 14 Review of Systems Const Denies fatigue, Denies fever(s), Denies night sweats, Denies poor appetite and Denies weight loss ENT Reports Normal hearing present, Denies dental pain, Denies dysphagia, Denies hearing loss, Denies mouth pain, Denies odynophagia, Denies throat swelling, Denies tongue swelling and Reports other (Dentition adequate) Card Reports no additional complaints Resp Reports no additional complaints GI Denies abdominal pain, Denies melena, Denies bloating, Denies hematochezia, Denies constipation, Denies GI cramping, Denies dysphagia, Denies excessive flatus, Denies early satiety, Reports heartburn, Denies diarrhea, Denies nausea, Denies odynophagia, Denies vomiting and Denies hematemesis Skin/Breast Denies pruritus, Denies lesions, Denies rash and Denies jaundice Neuro Reports Normal hearing present and Denies Abnormal speech present Endo Denies fatigue Aller/Immun Denies throat swelling and Denies tongue swelling Physical Exam Vital Signs: Last Vital Signs Pulse 84 01/19/23 15:21 BP 116/64 09/22/23 15:21 BMI result Body Mass Index 28.3 Const General: cooperative, no acute distress, well developed and well groomed Nutritional Appearance: average body habitus and well nourished Orientation/consciousness: oriented to person, oriented to place and oriented to time Limitations: language barrier HEENT Head: Yes normocephalic and Yes atraumatic Eyes General: appearance normal, both eyes and all related structures Pupils: Equal, round and reactive pupils present Neck Neck: Yes normal visual inspection and Yes no lymphadenopathy Thyroid: Thyroid normal Resp Effort & Inspection: normal respiratory effort and able to speak in complete sentences Auscultation: clear to auscultation bilaterally Cardio Rate: regular rate Rhythm: regular rhythm Heart sounds: Normal, physiologic split S2 sound present Peripheral pulses: radial pulses present and posterior tibial pulses present GI Inspection: No distended and No Abdominal panniculus present Palpation (GI): Soft to palpation, nontender, no guarding, not rigid and No hepatosplenomegaly present Percussion: Yes normal to percussion Auscultation: normal bowel sounds Rectal Exam - Female: deferred Skin General skin exam: no rashes or lesions noted, turgor normal, skin not dry, no jaundice, No spider nevi and no striae Rashes: no rashes Nails: normal Neuro General: oriented to person, oriented to place and oriented to time Cranial nerves: Yes Equal, round and reactive pupils present and Yes Normal hearing present Speech: No Abnormal speech present Extrem General: Yes normal to inspection, No clubbing, No cyanosis and No edema Psych Appearance: grossly normal and well kempt Mental Status: mental status grossly normal Speech and movement: Normal speech and movement present Affect: normal affect Attitude: cooperative Thought process: Normal thought process present and not confabulating Thought content: Normal thought content present Insight: Limited insight present (Psych) Judgement: Limited judgement present (Psych) Assessment & Plan Assessment & Plan (1) Pre-op examination: Code(s): Z01.818 - Encounter for other preprocedural examination Plan: Wallisian #[id number] Binh She has no new health problems except for back pain. She will be having an MRI soon. She continues to do well on her bid famotidine for her GERD. There are no prior problems with anesthesia or sedation. She denies any respiratory or cardiac problems. No ID problems. There is no known FHX or crc or polyps. The I will see her in 6 months and of course after the colonoscopy. (2) Tubular adenoma of colon: Comment: 2 very large TA's 09/2021 repeat 6-12 months Code(s): D12.6 - Benign neoplasm of colon, unspecified (3) GERD (gastroesophageal reflux disease): Code(s): K21.9 - Gastro-esophageal reflux disease without esophagitis Orders: Orders Colonoscopy - GI Use Only 01/19/23 Z01.818 - Encounter for other preprocedural examination, D12.6 - Benign neoplasm of colon, unspecified, K21.9 - Gastro- esophageal reflux disease without esophagitis Medications: New peg 3350-electrolytes 236-22.74-6.74 -5.86 gram (Golytely) until fecal effluent is clear; do not exceed a total volume of 2,000 mL 240 mL PO Q10M 4,000 mL 0RF 1 day Z12.11 - Encounter for screening for malignant neoplasm of colon Refilled famotidine (Pepcid) 40 mg PO BEDTIME 30 tabs 6RF K21.9 - Gastro-esophageal reflux disease without esophagitis Coding Level of Care Code Est Pt Level 4 (81240) Diagnoses Pre-op examination Z01.818 Tubular adenoma of colon D12.6 GERD (gastroesophageal reflux disease) K21.9
[2023-01-19 15:21] VITALS: BP 116/64; PULSE 84; BMI 28.3
== END 2023-01-19 15:36 | disposition home or self-care (01) ==
PROVIDERS: PCP Internal Medicine; Visit Provider Nurse Practitioner
DX: Z01.818 Encounter for other preprocedural examination (principal); D12.6 Benign neoplasm of colon, unspecified; K21.9 Gastro-esophageal reflux disease without esophagitis
CPT/HCPCS: 99214

== ENCOUNTER → 2023-01-19 15:13 | Outpatient (BNVA) | payer MEDICAID, SELFPAY | PROVIDERS: PCP Internal Medicine; Visit Provider Nurse Practitioner | DX: Z01.818 Encounter for other preprocedural examination (principal); K21.9 Gastro-esophageal reflux disease without esophagitis; Z86.010 Personal history of colon polyps | CPT/HCPCS: 99212 ==

== ENCOUNTER 2023-01-23 14:56 | Outpatient (AMB) | payer MEDICAID, SELFPAY ==
[2023-01-23 15:00] VITALS: BP 130/72; BMI 28.7
--- NOTE | 2023-01-23 15:00 | A.OFFVIS_ITS ---
Intake Vital Signs 01/23/23 15:00 Height 5 ft 4 in Weight 167 lb BMI 28.7 BP 130/72 Intake Visit Reasons: Colposcopy Credit Specialist Required: Yes Credit Specialist Language: Assistant Producer Name: Tami URBAN Information Interpreted: non-clinical & clinical Chief Executive: Chief Executive Present (Tami) Allergies risperidone Allergy (Intermediate, Verified 01/23/23 15:15) HIVES ibuprofen [From MOTRIN] Allergy (Unknown, Verified 01/23/23 15:15) STOMACH ACHE tramadol [TRAMADOL] Adverse Reaction (Intermediate, Verified 01/23/23 15:15) GI PAIN shrimp and clams Allergy (Unknown, Uncoded 01/23/23 15:15) unk Is last menstrual period known: No Patient : No PFSH Medical History Chronic sinusitis Dysplasia of cervix, low grade (BETH 1) Migraine Osteopenia Vitamin D deficiency Surgical History Hx of colonoscopy History of cholecystectomy H/O LEEP Hx of tonsillectomy Hx of abdominal hysterectomy Hx of section Family History Father No problems noted. 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 Female Reproductive History Menstrual Age of Menarche: 14 control method: none Date of last pap smear: 11/29/22 (ASCUS +HPV) Office Procedures Colposcopy Before the procedure was started discussed with the patient the procedure, alte rnatives & all the risks associated with the procedure (bleeding, infection, injury to vagina, bladder, vessels, possible need for transfusion with all its risks) then patient signed the consent Vaginal Pap smear = ascus/HPV positive Speculum inserted, acetic acid used Vaginoscopy done no acetowhite lesions identified , no vaginal biopsies taken Vaginoscopy of the upper vagina showed no evidence of any aceto-white lesions . At the end the patient was instructed to call if temp>100.4, abdominal pain, n/v, bleeding; The patient was given the following instructions: nothing per vagina, no intercourse or bath tub use. All questions answered the patient verbalized understanding. Instructed the patient to make an appointment in 2 weeks for follow-up This note was generated with a voice recognition program. Some errors may have been overlooked during the review of this note. Sometimes these errors may affect the content or meaning of a given sentence. 20929-Rusxudujhl of entire vagina Procedure code (CPT) selection complete Assessment & Plan Assessment & Plan Orders: Orders AMB Colposcopy Today R87.610 - Atypical squamous cells of undetermined significance on cytologic smear of cervix (ASC-US), R87.810 - Cervical high risk human papillomavirus (HPV) DNA test positive Coding Level of Care Code Procedure Only CPT Codes Colposcopy - CPT: 51484-Hozmtkseeh of entire vagina ([id number])
== END 2023-01-23 16:28 | disposition home or self-care (01) ==
PROVIDERS: PCP Internal Medicine; Visit Provider Obstetrics & Gynecology
DX: R87.610 Atypical squamous cells of undetermined significance on cytologic smear of cervix (ASC-US) (principal); R87.810 Cervical high risk human papillomavirus (HPV) DNA test positive
CPT/HCPCS: 57420

== ENCOUNTER → 2023-01-23 14:56 | Outpatient (BNVA) | payer MEDICAID, SELFPAY | PROVIDERS: PCP Internal Medicine; Visit Provider Obstetrics & Gynecology | DX: R87.610 Atypical squamous cells of undetermined significance on cytologic smear of cervix (ASC-US) (principal); R87.810 Cervical high risk human papillomavirus (HPV) DNA test positive | CPT/HCPCS: 57420 ==

== ENCOUNTER 2023-02-22 12:42 | Outpatient (REF) | payer MEDICAID, SELFPAY | END 2023-02-22 12:43 | disposition home or self-care (01) | LOC: HO.MRI 12:42 | PROVIDERS: PCP Internal Medicine; Visit Provider Internal Medicine | DX: Z13.89 Encounter for screening for other disorder (principal) ==

== ENCOUNTER 2023-03-14 17:04 | Outpatient (REF) | payer MEDICAID, SELFPAY ==
--- NOTE | ~2023-03-14 | MR_ITS ---
EXAMINATION: MR LUMBAR SPINE WITHOUT CONTRAST CLINICAL INFORMATION: Lumbar radiculopathy. COMPARISON: None available. TECHNIQUE: MRI of the lumbar spine was obtained using routine sequences without contrast. FINDINGS: Normal anatomic alignment. Normal, homogeneous marrow signal throughout. No suspicious marrow edema. The vertebral body heights are maintained. Mild degenerative disc disease at T11-T12 and from L1-L5 with partial disc desiccation and slight loss of disc height. The conus medullaris terminates at the level of T12-L1. The distal spinal cord is normal in appearance. Mild subcutaneous edema within the posterior soft tissues of the back at the levels of L4-L5. No additional significant abnormalities of the paraspinal musculature. There is a 1.6 cm T2 hyperintense cyst in the lower pole left kidney (no follow-up imaging recommended based on current guidelines at the time of examination). Otherwise, limited evaluation of the intra-abdominal structures without significant abnormalities. The abdominal aorta is of normal contour and caliber. AXIAL SPINAL LEVELS: T12-L1: Normal annular contour. There is no facet joint arthropathy. There is no neural foraminal stenosis. There is no spinal canal stenosis. L1-L2: Shallow diffuse disc bulge. There is no facet joint arthropathy. There is no neural foraminal stenosis. There is no spinal canal stenosis. L2-L3: Shallow diffuse disc bulge. There is mild bilateral facet joint arthropathy. There is mild left and no right neural foraminal stenosis. There is no spinal canal stenosis. L3-L4: Shallow left foraminal disc protrusion. There is no facet joint arthropathy. There is mild left and no right neural foraminal stenosis. There is no spinal canal stenosis. L4-L5: Mild diffuse disc bulge. There is mild bilateral facet joint arthropathy. There is mild bilateral neural foraminal stenosis. There is mild narrowing of the left subarticular zone with no overt spinal canal stenosis centrally. L5-S1: Normal annular contour. There is mild bilateral facet joint arthropathy. There is no neural foraminal stenosis. There is no spinal canal stenosis. 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 No overt spinal canal stenosis or nerve root compression.
== END 2023-03-14 17:05 | disposition home or self-care (01) ==
LOC: HO.MRI 17:04
PROVIDERS: PCP Internal Medicine; Visit Provider Internal Medicine
DX: M54.16 Radiculopathy, lumbar region (principal)
CPT/HCPCS: 72148

== ENCOUNTER 2023-03-21 07:00 | Day surgery (SDC) | payer MEDICAID, SELFPAY ==
--- NOTE | 2023-03-20 10:01 | HO.ANESPROP2 ---
Documented by User: Domi Levine NP 03/20/23 10:02 HPI - Anesthesia Eval Consult details Narrative: 52yo F for Colonoscopy PMFSH Active Problems Active Problems: All Active Problems (Updated 01/23/23 @ 15:28 by Yayo Ron MD) ASCUS with positive high risk HPV cervical (Acute) Pre-op examination (Acute) Lumbar radicular pain (Acute) Dysplasia of cervix, low grade (BETH 1) (Acute) Cervical radiculopathy (Acute) Cervical low risk human papillomavirus (HPV) DNA test positive (Acute) Tubular adenoma of colon (Acute) Colon cancer screening (Acute) GERD (gastroesophageal reflux disease) (Acute) Skin candidiasis (Acute) ASCUS with positive high risk HPV (Acute) Well woman exam (Acute) Chronic sinusitis (Acute) Migraine (Acute) Vitamin D deficiency (Acute) Osteopenia (Acute) Past Medical History Medical History Dysplasia of cervix, low grade (BETH 1) Chronic sinusitis Migraine Vitamin D deficiency Osteopenia Family History Family History Father No problems noted. 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 Meds Allergies Allergy/AdvReac Type Severity Reaction Status Date / Time risperidone Allergy Intermediate HIVES Verified 01/23/23 15:15 ibuprofen [From MOTRIN] Allergy Unknown STOMACH Verified 01/23/23 15:15 ACHE tramadol [TRAMADOL] AdvReac Intermediate GI PAIN Verified 01/23/23 15:15 shrimp and clams Allergy Unknown unk Uncoded 01/23/23 15:15 Home Medications Medication Instructions Recorded Confirmed Last Taken Type calcium carbonate 215 mg calcium 215 mg PO TID 09/07/20 12/18/22 Unknown History (500 mg) chewable tablet (Antacid Calcium) cholecalciferol (vitamin D3) 10 10 mcg PO DAILY 09/07/20 12/18/22 Unknown History mcg (400 unit) capsule epinephrine 0.3 mg/0.3 mL IM DIRECTED 07/07/21 12/18/22 Unknown History injection, auto-injector triamcinolone acetonide 55 mcg 2 spray intranasal DAILY 07/07/21 12/18/22 Unknown History nasal spray aerosol nystatin 100,000 unit/gram topical topical BID 09/28/21 12/18/22 Unknown History cream Exam Pertinent Lab Results Pertinent Lab Results: Laboratory Tests 11/21/22 16:20 WBC 8.1 Hgb 13.8 Hct 43.8 Plt Count 320 Sodium 141 Potassium 4.6 Chloride 105 Carbon Dioxide 28 BUN 9 Creatinine 0.70 Assessment and Plan Final Anesthetic Review History of Problems with Anesthesia: No Documented by User: Phuong Jaime MD 03/21/23 07:33 PMFSH Past Medical History Medical History Dysplasia of cervix, low grade (BETH 1) Chronic sinusitis Migraine Vitamin D deficiency Osteopenia Family History Family History Father No problems noted. 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 Meds Allergies Allergy/AdvReac Type Severity Reaction Status Date / Time risperidone Allergy Intermediate HIVES Verified 01/23/23 15:15 ibuprofen [From MOTRIN] Allergy Unknown STOMACH Verified 01/23/23 15:15 ACHE tramadol [TRAMADOL] AdvReac Intermediate GI PAIN Verified 01/23/23 15:15 shrimp and clams Allergy Unknown unk Uncoded 01/23/23 15:15 Home Medications Medication Instructions Recorded Confirmed Last Taken Type calcium carbonate 215 mg calcium 215 mg PO TID 09/07/20 12/18/22 Unknown History (500 mg) chewable tablet (Antacid Calcium) cholecalciferol (vitamin D3) 10 10 mcg PO DAILY 09/07/20 12/18/22 Unknown History mcg (400 unit) capsule epinephrine 0.3 mg/0.3 mL IM DIRECTED 07/07/21 12/18/22 Unknown History injection, auto-injector triamcinolone acetonide 55 mcg 2 spray intranasal DAILY 07/07/21 12/18/22 Unknown History nasal spray aerosol nystatin 100,000 unit/gram topical topical BID 09/28/21 12/18/22 Unknown History cream Exam Airway Mallampati Class: II TM Dist: >3cm Neck ROM: Full Heart: rrr Lungs: cta Assessment and Plan Assessment Anesthesia Assessment: Anesthesia Plan Discussed and Chart Reviewed Final Anesthetic Review Family History of Problems with Anesthesia: No NPO: Yes ASA Class: II Final Preanesthetic Review: No Changes in Pt Med Stat, Meds/Allgs Chart Reviewed, Consent Obtained/Reviewed and Anes Risks/Benef Reviewed Patient Risk: Low Procedure Risk: Low Anesthetic Plan Anesthetic Plan: MAC: Disposition: Standard PACU
[2023-03-21 07:21] VITALS: BMI 28.6
[2023-03-21] MEDS: Lactated Ringers 1,000 ML 100 ML IVCONT (07:44)
[2023-03-21 07:45] VITALS: BP 128/87; PULSE 104; RESP 18; TEMP 36.7; O2SAT 97
--- NOTE | 2023-03-21 08:44 | MHC.SHP ---
Pre-Procedural Eval Section A Date of Service: 03/21/23 Section B Chief Complaint: Benign neoplasm of colon, unspecified Relevant Family History (Specify if Yes): No Relevant Social History: None Present Medications: see Short Stay Collaborative assessment Medical History: Significant History (Dysplasia of cervix, low grade (BETH 1) Chronic sinusitis Migraine Vitamin D deficiency Osteopenia) History of Previous Operations: Relevant previous surgery/procedure and date(s) (Hx of colonoscopy History of cholecystectomy H/O LEEP Hx of tonsillectomy Hx of abdominal hysterectomy Hx of section) Allergies: Allergies Allergy/AdvReac Type Severity Reaction Status Date / Time risperidone Allergy Intermediate HIVES Verified 03/21/23 07:46 ibuprofen [From MOTRIN] Allergy Unknown STOMACH Verified 03/21/23 07:46 ACHE tramadol [TRAMADOL] AdvReac Intermediate GI PAIN Verified 03/21/23 07:46 shrimp and clams Allergy Severe Anaphylaxis Uncoded 03/21/23 07:46 Review of Systems Sugical H&P ROS: Negative: Constitution, Cardiovascular, Respiratory, Neurological, Psychiatric, Hem-Onc, Allergic/Immunologic, Gastrointestinal, Genitourinary, Musculoskeletal, Integumentary, Endocrine and Eyes/Ears/Nose/Throat Exam Surgical H&P Exam: Normal: HEENT, Normal: Heart, Normal: Lungs, Normal: Extremities, Normal: Abdomen, Normal: Skin and Normal: Neurological Plan Diagnosis/Plan: Unchanged I have reviewed the history and physical and performed a pertinent physical examination on my patient. No changes have occurred unless specified. Time Spent With Patient Time: Total time managing care of this patient today ____ minutes.
--- NOTE | 2023-03-21 08:47 | W.PM.OPN ---
Operative Note Operative Note Date of Service: 03/21/23 Narrative: Operative Information Procedure Description: Colonoscopy Indication: hx of polyps Anesthesia: MAC COLONOSCOPY Instrument: Olympus variable stiffness pediatric scope 190L Colonoscopy Monitoring: Vital signs and clinical assessment, continuous EKG monitoring, Pulse oximetry, Carbon Dioxide monitoring and blood pressure monitoring were done throughout the procedure. Colon withdrawal time was 15 minutes. Procedure: The patient was placed in the left lateral decubitis position and pre-procedure medications were administered. After a digital rectal examination of the ano-rectum, the video colonoscope was inserted into the rectum and advanced through the colon to the cecum/TI. The colonoscope was slowly withdrawn in a retrograde panoramic fashion and the colon mucosa was carefully examined including a retroflexed view of the rectum. Findings and interventions are described below. Procedure Difficulty: moderate, pressure applied Findings: Terminal Ileum-normal Cecum: curvilinear shaped polyp-lateral spreading granular type, near the orifice about 14 mm in diameter, lifted with eleview and then removed with cold snare, some residual tissue removed with cold biopsy forceps, then x 2 clips applied for partial closure of the defect Ascending Colon: normal Transverse Colon -normal Descending Colon:normal Sigmoid Colon: normal Rectum: Retroflexion with small internal hemorrhoids, grade I Anorectum - normal Colon preparation: [place] Bowel Preparation Scale Right colon; 2 Transverse colon: 2 Left colon; 1-2 (0 = Unprepared colon segment with mucosa not seen due to solid stool that cannot be cleared. 1 = Portion of mucosa of the colon segment seen, but other areas of the colon segment not well seen due to staining, residual stool and/or opaque liquid. 2 = Minor amount of residual staining, small fragments of stool and/or opaque liquid, but mucosa of colon segment seen well. 3 = Entire mucosa of colon segment seen well with no residual staining, small fragments of stool or opaque liquid) Impression and Post Procedure Diagnosis: polyp internal hemorrhoids Plan: High fiber diet leaflet Avoid straining at stool, epsom salts and sitz bath, anusol supps or cream Repeat Colonoscopy in 6-12 months or earlier if clinically indicated due to large polyp history Above findings were reviewed with the patient and relevant handouts were provided if indicated.
[2023-03-21 09:27] VITALS: BP 111/76; PULSE 88; RESP 19; TEMP 36.6; O2SAT 98
[2023-03-21 09:42] VITALS: BP 120/91; PULSE 77; RESP 18; TEMP 36.6; O2SAT 99
== END 2023-03-21 10:05 | disposition home or self-care (01) ==
PROVIDERS: PCP Internal Medicine; Visit Provider Internal Medicine Gastroenterology
PROC: 0DJD8ZZ Inspection of Lower Intestinal Tract, Via Natural or Artificial Opening Endoscopic (ICD-10-PCS; CPT 45378; principal; 2023-03-21 09:10)
DX: Z12.11 Encounter for screening for malignant neoplasm of colon (principal); Z86.010 Personal history of colon polyps; D12.0 Benign neoplasm of cecum; K64.0 First degree hemorrhoids; K21.9 Gastro-esophageal reflux disease without esophagitis; E55.9 Vitamin D deficiency, unspecified; M85.80 Other specified disorders of bone density and structure, unspecified site; G43.909 Migraine, unspecified, not intractable, without status migrainosus; J32.9 Chronic sinusitis, unspecified; Z79.899 Other long term (current) drug therapy; Z88.8 Allergy status to other drugs, medicaments and biological substances; Z90.49 Acquired absence of other specified parts of digestive tract; Z90.710 Acquired absence of both cervix and uterus
CPT/HCPCS: 45385; 45380; 45381; 88305; J2704

== ENCOUNTER → 2023-03-21 07:00 | Outpatient (BNV) | payer MEDICAID, SELFPAY | PROVIDERS: PCP Internal Medicine; Visit Provider Internal Medicine Gastroenterology | DX: Z12.11 Encounter for screening for malignant neoplasm of colon (principal); Z86.010 Personal history of colon polyps; D12.0 Benign neoplasm of cecum; K64.0 First degree hemorrhoids | CPT/HCPCS: 45380; 45381; 45385 ==

== ENCOUNTER 2023-03-26 14:44 | Outpatient (AMB) | payer MEDICAID, SELFPAY ==
[2023-03-26 14:47] VITALS: BP 121/77; PULSE 83; RESP 12; O2SAT 97
--- NOTE | 2023-03-26 14:47 | MHC.OFFVIS ---
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: Olivia #[id number] Allergies risperidone Allergy (Intermediate, Verified 03/26/23 14:49) HIVES ibuprofen [From MOTRIN] Allergy (Unknown, Verified 03/26/23 14:49) STOMACH ACHE tramadol [TRAMADOL] Adverse Reaction (Intermediate, Verified 03/26/23 14:49) GI PAIN shrimp and clams Allergy (Severe, Uncoded 03/26/23 14:49) Anaphylaxis Medication List - Last Reconciled 03/26/23 by Michelle Nichole LPN calcium carbonate (Antacid Calcium) 215 mg PO TID cholecalciferol (vitamin D3) 10 mcg PO DAILY cyclobenzaprine 10 mg PO TID PRN epinephrine IM DIRECTED famotidine (Pepcid) 40 mg PO BEDTIME gabapentin 300 mg PO BEDTIME lidocaine 5% 1 patch topical DAILY nystatin topical BID triamcinolone acetonide 2 sprays intranasal DAILY HPI MRI Results Follow Up/LMOVM HPI Details 52-year-old female who presents today to the office for a review of MRI scan result. The patient reports right sided low back pain that radiates upward. She took gabapentin only for three days and discontinued it due to side effects including GI irritation and emesis. [facility] Medical History Dysplasia of cervix, low grade (BETH 1) Chronic sinusitis Migraine Vitamin D deficiency Osteopenia Surgical History Hx of colonoscopy History of cholecystectomy H/O LEEP Hx of tonsillectomy Hx of abdominal hysterectomy Hx of section Family History Father No problems noted. 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 Alert and oriented. Mood and affect appropriate. Follows and participates in conversation appropriately. Respiratory effort is unlabored. Able to transition from sit to stand unassisted. Ambulates with bilaterally normal heel strike and toe off. Results Reviewed Results Reviewed: 03/14/23: MR LUMBAR SPINE WITHOUT CONTRAST FINDINGS: Normal anatomic alignment. Normal, homogeneous marrow signal throughout. No suspicious marrow edema. The vertebral body heights are maintained. Mild degenerative disc disease at T11-T12 and from L1-L5 with partial disc desiccation and slight loss of disc height. The conus medullaris terminates at the level of T12-L1. The distal spinal cord is normal in appearance. Mild subcutaneous edema within the posterior soft tissues of the back at the levels of L4-L5. No additional significant abnormalities of the paraspinal musculature. There is a 1.6 cm T2 hyperintense cyst in the lower pole left kidney (no follow-up imaging recommended based on current guidelines at the time of examination). Otherwise, limited evaluation of the intra-abdominal structures without significant abnormalities. The abdominal aorta is of normal contour and caliber. AXIAL SPINAL LEVELS: T12-L1: Normal annular contour. There is no facet joint arthropathy. There is no neural foraminal stenosis. There is no spinal canal stenosis. L1-L2: Shallow diffuse disc bulge. There is no facet joint arthropathy. There is no neural foraminal stenosis. There is no spinal canal stenosis. L2-L3: Shallow diffuse disc bulge. There is mild bilateral facet joint arthropathy. There is mild left and no right neural foraminal stenosis. There is no spinal canal stenosis. L3-L4: Shallow left foraminal disc protrusion. There is no facet joint arthropathy. There is mild left and no right neural foraminal stenosis. There is no spinal canal stenosis. L4-L5: Mild diffuse disc bulge. There is mild bilateral facet joint arthropathy. There is mild bilateral neural foraminal stenosis. There is mild narrowing of the left subarticular zone with no overt spinal canal stenosis centrally. L5-S1: Normal annular contour. There is mild bilateral facet joint arthropathy. There is no neural foraminal stenosis. There is no spinal canal stenosis. 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 No overt spinal canal stenosis or nerve root compression. Assessment & Plan Assessment & Plan (1) Lumbar radicular pain: Code(s): M54.16 - Radiculopathy, lumbar region (2) Fibromyalgia: Code(s): M79.7 - Fibromyalgia Plan Back symptoms are not explained by findings on MRI. Could be related to fibromyalgia. Recommend trial of pregabalin 75 mg BID. The patient will return in two months for follow-up. Also, [place] the patient regarding side effects of potential sleepiness. She should only take the medication at night if she encounters the side effect. Scribed for Dr. Hernandez by Dioni Medina, medical practitioners, on 03/26/2023. I, Dr. Hernandez, have personally reviewed and agree with the information entered by the scribe. Medications: New pregabalin 75 mg PO BID 60 caps 0RF Discontinued gabapentin Discontinued Reason: Patient no longer taking 300 mg PO BEDTIME 30 caps 2RF Coding Level of Care Code Est Pt Level 3 (78614) Diagnoses Lumbar radicular pain M54.16 Fibromyalgia M79.7
== END 2023-03-26 15:02 | disposition home or self-care (01) ==
PROVIDERS: PCP Internal Medicine; Visit Provider Internal Medicine
DX: M54.16 Radiculopathy, lumbar region (principal); M79.7 Fibromyalgia
CPT/HCPCS: 99213

== ENCOUNTER → 2023-03-26 14:44 | Outpatient (BNVA) | payer MEDICAID, SELFPAY | PROVIDERS: PCP Internal Medicine; Visit Provider Internal Medicine | DX: M54.16 Radiculopathy, lumbar region (principal); M79.7 Fibromyalgia | CPT/HCPCS: 99212 ==

== ENCOUNTER 2023-04-03 11:57 | Outpatient (AMB) | payer MEDICAID, SELFPAY ==
--- NOTE | 2023-04-03 12:02 | A.OFFVIS_ITS ---
Intake Vital Signs 04/03/23 12:04 Height 5 ft 4 in Weight 167 lb 15.876 oz BMI 28.8 BP 126/88 Blood Pressure Location Rt brachial Position Sitting Pulse 88 Intake Visit Reasons: s/p miriam Rossi Intake Note: Patient returns to office today in post op follow up s/p colonoscopy. CC: aMrie underwent colonoscopy with Dr. Rossi on 03/21/23. Patient reports diarrhea and abd pain but states this has been going since 2005 and had a perf oration on her bowel. Film Tests Checker Required: No Accompanied by: Self / Same As Patient Allergies risperidone Allergy (Intermediate, Verified 04/03/23 12:13) HIVES ibuprofen [From MOTRIN] Allergy (Unknown, Verified 04/03/23 12:13) STOMACH ACHE tramadol [TRAMADOL] Adverse Reaction (Intermediate, Verified 04/03/23 12:13) GI PAIN shrimp and clams Allergy (Severe, Uncoded 03/26/23 14:49) Anaphylaxis Medication List - Last Reconciled 04/03/23 by IVANNA Basilio calcium carbonate (Antacid Calcium) 215 mg PO TID cholecalciferol (vitamin D3) 10 mcg PO DAILY cyclobenzaprine 10 mg PO TID PRN epinephrine IM DIRECTED famotidine (Pepcid) 40 mg PO BEDTIME lidocaine 5% 1 patch topical DAILY nystatin topical BID pregabalin 75 mg PO BID sod picosulf-mag ox-citric ac 10 mg-3.5 gram- 12 gram/160 mL (Clenpiq) 160 mL PO DAILY triamcinolone acetonide 2 sprays intranasal DAILY HPI s/p miriam Rossi HPI Details Assessment & Plan (1) Pre-op examination: Code(s): Z01.818 - Encounter for other preprocedural examination Plan: Romanian #[id number] Binh She has no new health problems except for back pain. She will be having an MRI soon. She continues to do well on her bid famotidine for her GERD. There are no prior problems with anesthesia or sedation. She denies any respiratory or cardiac problems. No ID problems. There is no known FHX or crc or polyps. The I will see her in 6 months and of course after the colonoscopy. (2) Tubular adenoma of colon: Comment: 2 very large TA's 09/2021 repeat 6-12 mo [facility] Code(s): D12.6 - Benign neoplasm of colon, unspecified (3) GERD (gastroesophageal reflux diseas e): Code(s): K21.9 - Gastro-esophageal reflux disease without esophagitis Orders: Orders Colonoscopy - GI U se Only 01/19/23 Z01.818 - Encounte r for other prepro cedural examinatio n, D12.6 - Benign neoplasm of colon, unspecified, K21. 9 - Gastro-esophag eal reflux disease without esophagit is Medications: New peg 3350-electroly elías 236-22.74-6.74 -5.86 gram (Golyt rogerio) until feca l effluent is rachel r; do not exceed a total volume of 2 ,000 mL 240 mL PO Q10M 4,0 00 mL 0RF 1 day Z12.11 - Encounter for screening for malignant neoplas m of colon Refilled famotidine (Pepcid ) 40 mg PO BEDTIME 3 0 tabs 6RF K21.9 - Gastro-eso phageal reflux dis ease without esoph agitis A COLONOSCOPY 03/21/23 Findings: Terminal Ileum-normal Cecum: curvilinear shaped polyp-lateral spreading granular type, near the orifice about 14 mm in diameter, lifted with eleview and then removed with cold snare, some residual tissue removed with cold biopsy forceps, then x 2 clips applied for partial closure of the defect Ascending Colon: normal Transverse Colon -normal Descending Colon:normal Sigmoid Colon: normal Rectum: Retroflexion with small internal hemorrhoids, grade I Anorectum - normal Impression and Post Procedure Diagnosis: polyp internal hemorrhoids Plan: High fiber diet leaflet Avoid straining at stool, epsom salts and sitz bath, anusol supps or cream Repeat Colonoscopy in 6-12 months or earlier if clinically indicated due to large polyp history BIOPSY Received: 03/21/23 Diagnosis Cecum, polypectomy: Fragments of tubular adenoma; negative for high-grade dysplasia or carcinoma. TODAY'S VISIT Romanian #[id number] Saji She only drank 1/2 of the prep I didn't like it. This was PEG prep. We will try a different prep next time, she has Medicaid PCC, so heidi give a sample of Clenpiq. With this she is agreeable to a 1 year follow-up. The procedure was well tolerated. The results were explained and the patient is agreeable to the follow-up interval as stated. The bowel pattern has returned to normal. Education was provided to tell any 1st degree relatives about their findings to be sure that they are screened by age 45. Educated that they will be put on a recall list when it is time for their repeat scope but should they move out of state or away from the hospital they will need to remember along with their primary to repeat the procedure in a timely fashion to avoid any adverse complications. She continues on her famotidine bid with good control of her GERD. There are no prior problems with anesthesia or sedation. She denies any respiratory or cardiac problems. No ID problems. There is no known FHX or crc or polyps. But she had a very large TA and poor prep on her 02/2023 scope. This will be repeated in 1 year. [facility] Medical History Dysplasia of cervix, low grade (BETH 1) Chronic sinusitis Migraine Vitamin D deficiency Osteopenia Surgical History Hx of colonoscopy History of cholecystectomy H/O LEEP Hx of tonsillectomy Hx of abdominal hysterectomy Hx of section Family History Father No problems noted. 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 Female Reproductive History Menstrual Age of Menarche: 14 Review of Systems Const Denies fatigue, Denies fever(s), Denies night sweats, Denies poor appetite and Denies weight loss ENT Reports Normal hearing present, Denies dental pain, Denies dysphagia, Denies hearing loss, Denies mouth pain, Denies odynophagia, Denies throat swelling, Denies tongue swelling and Reports other (Dentition adequate) Card Reports no additional complaints Resp Reports no additional complaints GI Denies abdominal pain, Denies melena, Denies bloating, Denies hematochezia, Denies constipation, Denies GI cramping, Denies dysphagia, Denies excessive flatus, Denies early satiety, Reports heartburn, Denies diarrhea, Denies nausea, Denies odynophagia, Denies vomiting and Denies hematemesis Skin/Breast Denies pruritus, Denies lesions, Denies rash and Denies jaundice Neuro Reports Normal hearing present and Denies Abnormal speech present Endo Denies fatigue Aller/Immun Denies throat swelling and Denies tongue swelling Physical Exam Vital Signs: Last Vital Signs Pulse 88 04/03/23 12:04 BP 126/88 04/03/23 12:04 BMI result Body Mass Index 28.8 Const General: cooperative, no acute distress, well developed and well groomed Nutritional Appearance: average body habitus and well nourished Orientation/consciousness: oriented to person, oriented to place and oriented to time Limitations: language barrier HEENT Head: Yes normocephalic and Yes atraumatic Eyes General: appearance normal, both eyes and all related structures Pupils: Equal, round and reactive pupils present Neck Neck: Yes normal visual inspection and Yes no lymphadenopathy Thyroid: Thyroid normal Resp Effort & Inspection: normal respiratory effort and able to speak in complete sentences Auscultation: clear to auscultation bilaterally Cardio Rate: regular rate Rhythm: regular rhythm Heart sounds: Normal, physiologic split S2 sound present Peripheral pulses: radial pulses present and posterior tibial pulses present GI Inspection: No distended and No Abdominal panniculus present Palpation (GI): Soft to palpation, nontender, no guarding, not rigid and No hepatosplenomegaly present Percussion: Yes normal to percussion Auscultation: normal bowel sounds Rectal Exam - Female: deferred Skin General skin exam: no rashes or lesions noted, turgor normal, skin not dry, no jaundice, No spider nevi and no striae Rashes: no rashes Nails: normal Neuro General: oriented to person, oriented to place and oriented to time Cranial nerves: Yes Equal, round and reactive pupils present and Yes Normal hearing present Speech: No Abnormal speech present Extrem General: Yes normal to inspection, No clubbing, No cyanosis and No edema Psych Appearance: grossly normal and well kempt Mental Status: mental status grossly normal Speech and movement: Normal speech and movement present Affect: normal affect Attitude: cooperative Thought process: Normal thought process present and not confabulating Thought content: Normal thought content present Insight: Limited insight present (Psych) Judgement: Limited judgement present (Psych) Assessment & Plan Assessment & Plan (1) Tubular adenoma of colon: Comment: One large TA 02/2023 insufficient prep repeat in 1 year; 2 very large TA's 09/2021 repeat 6-12 months Code(s): D12.6 - Benign neoplasm of colon, unspecified (2) GERD (gastroesophageal reflux disease): Code(s): K21.9 - Gastro-esophageal reflux disease without esophagitis Plan Romanian #[id number] Saji She only drank 1/2 of the prep I didn't like it. This was PEG prep. We will try a different prep next time, she has Medicaid PCC, so heidi give a sample of Clenpiq. With this she is agreeable to a 1 year follow-up. The procedure was well tolerated. The results were explained and the patient is agreeable to the follow-up interval as stated. The bowel pattern has returned to normal. Education was provided to tell any 1st degree relatives about their findings to be sure that they are screened by age 45. Educated that they will be put on a recall list when it is time for their repeat scope but should they move out of state or away from the hospital they will need to remember along with their primary to repeat the procedure in a timely fashion to avoid any adverse complications. She continues on her famotidine bid with good control of her GERD. There are no prior problems with anesthesia or sedation. She denies any respiratory or cardiac problems. No ID problems. There is no known FHX or crc or polyps. But she had a very large TA and poor prep on her 02/2023 scope. This will be repeated in 1 year. Orders: Orders Colonoscopy - GI Use Only Today D12.6 - Benign neoplasm of colon, unspecified Medications: Refilled famotidine (Pepcid) 40 mg PO BEDTIME 30 tabs 6RF K21.9 - Gastro-esophageal re flux disease without esophagitis Coding Level of Care Code Est Pt Level 3 (51470) Diagnoses Tubular adenoma of colon D12.6 GERD (gastroesophageal reflux disease) K21.9
[2023-04-03 12:04] VITALS: BP 126/88; PULSE 88; BMI 28.8
== END 2023-04-03 14:39 | disposition home or self-care (01) ==
PROVIDERS: PCP Internal Medicine; Visit Provider Nurse Practitioner
DX: D12.6 Benign neoplasm of colon, unspecified (principal); K21.9 Gastro-esophageal reflux disease without esophagitis
CPT/HCPCS: 99213

== ENCOUNTER → 2023-04-03 11:57 | Outpatient (BNVA) | payer MEDICAID, SELFPAY | PROVIDERS: PCP Internal Medicine; Visit Provider Nurse Practitioner | DX: D12.6 Benign neoplasm of colon, unspecified (principal); K21.9 Gastro-esophageal reflux disease without esophagitis | CPT/HCPCS: 99212 ==

== ENCOUNTER 2024-01-28 14:17 | Outpatient (AMB) | payer MEDICAID, SELFPAY ==
--- NOTE | 2024-01-28 14:27 | A.OFFVIS_ITS ---
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 Shift Supervisor Rn Required: Yes Shift Supervisor Rn Language: Tree Mark[employer] Services: Shift Supervisor Rn Present (in person) Shift Supervisor Rn Name: Tami URBAN Information Interpreted: non-clinical & clinical Binder Technician: Binder Technician Present (Tami URBAN) Accompanied by: Self / Same As Patient Allergies risperidone Allergy (Intermediate, Verified 01/28/24 14:35) HIVES ibuprofen [From MOTRIN] Allergy (Unknown, Verified 01/28/24 14:35) STOMACH ACHE tramadol [TRAMADOL] Adverse Reaction (Intermediate, Verified 01/28/24 14:35) GI PAIN shrimp and clams Allergy (Severe, Uncoded 01/28/24 14:35) Anaphylaxis Post menopausal: Yes HPI Comments Details: Presenting for annual exam. No complaints. Last Pap/HPV was ascus/HPV E6 E7 positive, colpo done with no aceto-white lesion seen, the patient is status post hysteroscopy Last Mammogram was BI-RADS 1 in 08/20 Last Colonoscopy was in 03/22, the recommendation was to repeat in 6-12 months [facility] Medical History Dysplasia of cervix, low grade (BETH 1) Chronic sinusitis Migraine Vitamin D deficiency Osteopenia Surgical History Hx of colonoscopy History of cholecystectomy H/O LEEP Hx of tonsillectomy Hx of abdominal hysterectomy Hx of section Family History Father No problems noted. 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 Female Reproductive History Menstrual Age of Menarche: 14 Menopause type: surgical Date of Mammogram: 08/22/22 Review of Systems Const All systems reviewed & are unremarkable except as noted in HPI and below Card Reports as per HPI and Reports no additional complaints Resp Reports as per HPI and Reports no additional complaints GI Reports as per HPI and Reports no additional complaints Reports as per HPI Physical Exam Vital Signs: Last Vital Signs BP 118/74 01/28/24 14:28 BMI result Body Mass Index 26.3 Const General: cooperative, healthy appearing and comfortable General: Yes bladder normal to palpation External Female Exam: No lesion Speculum Exam - Vagina: normal appearance of the vagina, normal vaginal discharge and not erythematous Speculum Exam - Cervix: normal appearance of the cervix Bimanual exam- vagina & uterus: bladder normal to palpation and uterus absent Bimanual Exam- Adnexa, other: Other (No masses detected) Assessment & Plan Assessment & Plan (1) Well woman exam: Comment: Ascus/HPV E6 E7 in 2022 Code(s): Z01.419 - Encounter for gynecological examination (general) (routine) without abnormal findings Category: Medical Plan: Co testing done. Counseled the patient about the recommended dietary allowance of 1200 mg of Calcium & 600 IU of vitamin D. Mammogram ordered. The patient is scheduled with GI for screening colonoscopy . The patient was instructed to perform monthly self-breast exams and schedule annual exam in a year. All questions answered and the patient verbalized understanding. Orders: Orders MM tomosynthesis screening BI Today Z12.31 - Encounter for screening mammogram for malignant neoplasm of breast Coding Level of Care Code Est Pt Prev Care 40-64y(09287) Diagnoses Well woman exam Z01.419
[2024-01-28 14:28] VITALS: BP 118/74; BMI 26.3
== END 2024-01-28 14:53 | disposition home or self-care (01) ==
PROVIDERS: PCP Internal Medicine; Visit Provider Obstetrics & Gynecology
DX: Z01.419 Encounter for gynecological examination (general) (routine) without abnormal findings (principal)
CPT/HCPCS: 99396

== ENCOUNTER 2024-01-28 14:17 | Outpatient (REF) | payer MEDICAID, SELFPAY ==
[2024-01-31 13:24] LABS: HPV mRNA E6/E7 Detected (Not Detected)
== END 2024-01-28 14:18 | disposition home or self-care (01) ==
LOC: HO.LNP 14:17
PROVIDERS: PCP Internal Medicine; Visit Provider Obstetrics & Gynecology
DX: Z01.419 Encounter for gynecological examination (general) (routine) without abnormal findings (principal); R87.610 Atypical squamous cells of undetermined significance on cytologic smear of cervix (ASC-US)
CPT/HCPCS: 87624; 88175; 99396

== ENCOUNTER 2024-02-21 14:18 | Outpatient (REF) | payer MEDICAID, SELFPAY ==
--- NOTE | ~2024-02-21 | MM_ITS ---
EXAMINATION: MM SCREENING DIGITAL BREAST TOMOSYNTHESIS, BILATERAL CLINICAL INFORMATION: Screening. Asymptomatic. COMPARISON: Mammography: Comparison is made with available priors TECHNIQUE: Digital breast mammography with tomosynthesis is performed in both the craniocaudal and mediolateral oblique views along with computer-aided detection (CAD). FINDINGS: There are scattered areas of fibroglandular density (ACR BI-RADS breast composition Category b). There are no significant masses, abnormal calcifications, or other abnormalities. MM/MM tomosynthesis screening BI IMPRESSION: No mammographic evidence of malignancy. ASSESSMENT: BI-RADS BI-RADS 1 - Negative RECOMMENDATION: Routine annual mammography screening. 1 year F/U This examination should not preclude the clinical evaluation of a suspicious palpable abnormality. This patient's information was entered into a reminder system with a target due date for their next mammogram. Electronically signed by: Comfort Simons DO 03/03/2024 04:16 PM [facility]
== END 2024-02-21 14:19 | disposition home or self-care (01) ==
LOC: HO.MAMMO 14:18
PROVIDERS: PCP Internal Medicine; Visit Provider Obstetrics & Gynecology
DX: Z12.31 Encounter for screening mammogram for malignant neoplasm of breast (principal)
CPT/HCPCS: 77063; 77067

== ENCOUNTER → 2024-02-21 14:45 | Outpatient (BNV) | payer MEDICAID, SELFPAY | PROVIDERS: PCP Internal Medicine; Visit Provider Internal Medicine | DX: Z12.31 Encounter for screening mammogram for malignant neoplasm of breast (principal) | CPT/HCPCS: 77063; 77067 ==

== ENCOUNTER 2024-03-12 06:25 | Day surgery (SDC) | payer MEDICAID, SELFPAY ==
[2024-03-10 11:42] VITALS: BMI 26.3
--- NOTE | 2024-03-11 12:04 | HO.ANESPROP2 ---
Documented by User: Domi Levine NP 03/11/24 12:04 HPI - Anesthesia Eval Consult details Narrative: 53yo F for Colonoscopy PMFSH Active Problems Active Problems: All Active Problems Fibromyalgia (Acute) ASCUS with positive high risk HPV cervical (Acute) Pre-op examination (Acute) Lumbar radicular pain (Acute) Dysplasia of cervix, low grade (BETH 1) (Acute) Cervical radiculopathy (Acute) Cervical low risk human papillomavirus (HPV) DNA test positive (Acute) Tubular adenoma of colon (Acute) Colon cancer screening (Acute) GERD (gastroesophageal reflux disease) (Acute) Skin candidiasis (Acute) ASCUS with positive high risk HPV (Acute) Well woman exam (Acute) Chronic sinusitis (Acute) Migraine (Acute) Vitamin D deficiency (Acute) Osteopenia (Acute) Past Medical History Medical History Dysplasia of cervix, low grade (BETH 1) Chronic sinusitis Migraine Vitamin D deficiency Osteopenia Family History Family History Father No problems noted. Mother Thyroid disease Osteoporosis Family history of problems with anesthesia: No Surgical History Surgical History Hx of colonoscopy History of cholecystectomy H/O LEEP Hx of tonsillectomy Hx of abdominal hysterectomy Hx of section History of Problems with Anesthesia: No Social History Social History Are you a primary weekend caregiver to a significant other at home: No Do you presently have visiting nurse or other home services: No Alcohol intake: never Patient Tobacco Use Status: Never used Tobacco Use of substances other than those prescribed or required for medical reasons: No Have you been hit, kicked, punched, or otherwise hurt by someone within the past year? 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 Meds Allergies Allergy/AdvReac Type Severity Reaction Status Date / Time risperidone Allergy Intermediate HIVES Verified 01/28/24 14:35 ibuprofen [From MOTRIN] Allergy Unknown STOMACH Verified 01/28/24 14:35 ACHE tramadol [TRAMADOL] AdvReac Intermediate GI PAIN Verified 01/28/24 14:35 shrimp and clams Allergy Severe Anaphylaxis Uncoded 01/28/24 14:35 Home Medications ?Medication ?Instructions ?Recorded ?Confirmed ?Last Taken ?Type calcium carbonate (Antacid Calcium) 215 mg PO TID 09/07/20 04/03/23 Unknown History cholecalciferol (vitamin D3) 10 10 mcg PO DAILY 09/07/20 04/03/23 Unknown History mcg (400 unit) capsule epinephrine 0.3 mg/0.3 mL IM DIRECTED 07/07/21 04/03/23 Unknown History injection, auto-injector triamcinolone acetonide 55 mcg 2 spray intranasal DAILY 07/07/21 04/03/23 Unknown History nasal spray aerosol nystatin 100,000 unit/gram topical topical BID 09/28/21 04/03/23 Unknown History cream sod picosulf 10 mg-magnes 3.5 160 ml PO DAILY 04/03/23 04/03/23 Unknown History gram-citric 12 gram/160 mL oral solution (Clenpiq) Exam Height,Weight and Vital Signs: Height 5 ft 4 in Weight 69.4 kg Assessment and Plan Assessment Anesthesia Assessment: Chart Reviewed Final Anesthetic Review Family History of Problems with Anesthesia: No History of Problems with Anesthesia: No Documented by User: Nesha Langley MD 03/12/24 08:48 [facility] Past Medical History Medical History Dysplasia of cervix, low grade (BETH 1) Chronic sinusitis Migraine Vitamin D deficiency Osteopenia Family History Family History Father No problems noted. Mother Thyroid disease Osteoporosis Surgical History Surgical History Hx of colonoscopy History of cholecystectomy H/O LEEP Hx of tonsillectomy Hx of abdominal hysterectomy Hx of section Social History Social History Are you a primary weekend caregiver to a significant other at home: No Do you presently have visiting nurse or other home services: No Alcohol intake: never Patient Tobacco Use Status: Never used Tobacco Use of substances other than those prescribed or required for medical reasons: No Have you been hit, kicked, punched, or otherwise hurt by someone within the past year? 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 Meds Allergies Allergy/AdvReac Type Severity Reaction Status Date / Time risperidone Allergy Intermediate HIVES Verified 01/28/24 14:35 ibuprofen [From MOTRIN] Allergy Unknown STOMACH Verified 01/28/24 14:35 ACHE tramadol [TRAMADOL] AdvReac Intermediate GI PAIN Verified 01/28/24 14:35 shrimp and clams Allergy Severe Anaphylaxis Uncoded 01/28/24 14:35 Home Medications ?Medication ?Instructions ?Recorded ?Confirmed ?Last Taken ?Type calcium carbonate (Antacid Calcium) 215 mg PO TID 09/07/20 04/03/23 Unknown History cholecalciferol (vitamin D3) 10 10 mcg PO DAILY 09/07/20 04/03/23 Unknown History mcg (400 unit) capsule epinephrine 0.3 mg/0.3 mL IM DIRECTED 07/07/21 04/03/23 Unknown History injection, auto-injector triamcinolone acetonide 55 mcg 2 spray intranasal DAILY 07/07/21 04/03/23 Unknown History nasal spray aerosol nystatin 100,000 unit/gram topical topical BID 09/28/21 04/03/23 Unknown History cream sod picosulf 10 mg-magnes 3.5 160 ml PO DAILY 04/03/23 04/03/23 Unknown History gram-citric 12 gram/160 mL oral solution (Clenpiq) Exam Airway Mallampati Class: II (missing one) TM Dist: >3cm Neck ROM: Full Heart: rrr Lungs: cta Assessment and Plan Assessment Anesthesia Assessment: Anesthesia Plan Discussed Final Anesthetic Review NPO: Yes ASA Class: II Final Preanesthetic Review: No Changes in Pt Med Stat, Meds/Allgs Chart Reviewed and Consent Obtained/Reviewed Patient Risk: Low Procedure Risk: Low Anesthetic Plan Anesthetic Plan: MAC: Disposition: Standard PACU
[2024-03-12 08:07] VITALS: BP 121/86; PULSE 82; RESP 16; TEMP 36.7; O2SAT 99; BMI 28.3
[2024-03-12] MEDS: Lactated Ringers 1,000 ML 100 ML IVCONT (08:29)
--- NOTE | 2024-03-12 08:52 | P.HPSUR_ITS ---
Pre-Procedural Eval Section A - 24 Hr Update-Section A only Date of Service: 03/12/24 Section B - Complete if H&P > 30 days Chief Complaint: Benign neoplasm of colon, unspecified Relevant Family History (Specify if Yes): No Relevant Social History: None Present Medications: see Short Stay Collaborative assessment Medical History: Significant History (Dysplasia of cervix, low grade (BETH 1) Chronic sinusitis Migraine Vitamin D deficiency Osteopenia) History of Previous Operations: Relevant previous surgery/procedure and date(s) (Hx of colonoscopy History of cholecystectomy H/O LEEP Hx of tonsillectomy Hx of abdominal hysterectomy Hx of section) Allergies: Allergies Allergy/AdvReac Type Severity Reaction Status Date / Time risperidone Allergy Intermediate HIVES Verified 01/28/24 14:35 ibuprofen [From MOTRIN] Allergy Unknown STOMACH Verified 01/28/24 14:35 ACHE tramadol [TRAMADOL] AdvReac Intermediate GI PAIN Verified 01/28/24 14:35 shrimp and clams Allergy Severe Anaphylaxis Uncoded 01/28/24 14:35 Review of Systems Sugical H&P ROS: Negative: Constitution, Cardiovascular, Respiratory, Neurological, Psychiatric, Hem-Onc, Allergic/Immunologic, Gastrointestinal, Genitourinary, Musculoskeletal, Integumentary, Endocrine and Eye s/Ears/Nose/Throat Exam Surgical H&P Exam: Normal: HEENT, Normal: Heart, Normal: Lungs, Normal: Extremities, Normal: Abdomen, Normal: Skin and Normal: Neurological Plan Diagnosis/Plan: Unchanged I have reviewed the history and physical and performed a pertinent physical examination on my patient. No changes have occurred unless specified. Time Spent With Patient Time: Total time managing care of this patient today ____ minutes.
--- NOTE | 2024-03-12 09:13 | HO.ANESPROP2 ---
[facility] Active Problems Active Problems: All Active Problems Fibromyalgia (Acute) ASCUS with positive high risk HPV cervical (Acute) Pre-op examination (Acute) Lumbar radicular pain (Acute) Dysplasia of cervix, low grade (BETH 1) (Acute) Cervical radiculopathy (Acute) Cervical low risk human papillomavirus (HPV) DNA test positive (Acute) Tubular adenoma of colon (Acute) Colon cancer screening (Acute) GERD (gastroesophageal reflux disease) (Acute) Skin candidiasis (Acute) ASCUS with positive high risk HPV (Acute) Well woman exam (Acute) Chronic sinusitis (Acute) Migraine (Acute) Vitamin D deficiency (Acute) Osteopenia (Acute) Past Medical History Medical History Dysplasia of cervix, low grade (BETH 1) Chronic sinusitis Migraine Vitamin D deficiency Osteopenia Family History Family History Father No problems noted. Mother Thyroid disease Osteoporosis Family history of problems with anesthesia: No Surgical History Surgical History Hx of colonoscopy History of cholecystectomy H/O LEEP Hx of tonsillectomy Hx of abdominal hysterectomy Hx of section History of Problems with Anesthesia: No Social History Social History Are you a primary career development coordinator to a significant other at home: No Do you presently have visiting nurse or other home services: No Alcohol intake: never Patient Tobacco Use Status: Never used Tobacco Use of substances other than those prescribed or required for medical reasons: No Have you been hit, kicked, punched, or otherwise hurt by someone within the past year? 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 Meds Allergies Allergy/AdvReac Type Severity Reaction Status Date / Time risperidone Allergy Intermediate HIVES Verified 01/28/24 14:35 ibuprofen [From MOTRIN] Allergy Unknown STOMACH Verified 01/28/24 14:35 ACHE tramadol [TRAMADOL] AdvReac Intermediate GI PAIN Verified 01/28/24 14:35 shrimp and clams Allergy Severe Anaphylaxis Uncoded 01/28/24 14:35 Active Medications: Current Medications Lactated Ringer's (Lr) 1,000 mls @ 100 mls/hr IVCONT .Q10H JEAN CARLOS Last Admin: 03/12/24 08:29 Dose: 100 mls/hr Naloxone HCl (Naloxone Hcl 0.4 Mg/Ml Vial) 0.04 mg IVPUSH Q5M PRN PRN Reason: Excessive sedation or RR < 8 Home Medications ?Medication ?Instructions ?Recorded ?Confirmed ?Last Taken ?Type calcium carbonate (Antacid Calcium) 215 mg PO TID 09/07/20 04/03/23 Unknown History cholecalciferol (vitamin D3) 10 10 mcg PO DAILY 09/07/20 04/03/23 Unknown History mcg (400 unit) capsule epinephrine 0.3 mg/0.3 mL IM DIRECTED 07/07/21 04/03/23 Unknown History injection, auto-injector triamcinolone acetonide 55 mcg 2 spray intranasal DAILY 07/07/21 04/03/23 Unknown History nasal spray aerosol nystatin 100,000 unit/gram topical topical BID 09/28/21 04/03/23 Unknown History cream sod picosulf 10 mg-magnes 3.5 160 ml PO DAILY 04/03/23 04/03/23 Unknown History gram-citric 12 gram/160 mL oral solution (Clenpiq) Exam Height,Weight and Vital Signs: Height 5 ft 4 in Weight 74.843 kg Last Vital Signs Temp 98.0 F 03/12/24 08:07 Pulse 82 03/12/24 08:07 Resp 16 03/12/24 08:07 BP 121/86 03/12/24 08:07 Pulse Ox 99 03/12/24 08:07 O2 Del Method Room Air 03/12/24 08:07 Airway Mallampati Class: III TM Dist: >3cm Neck ROM: Full Heart: RRR Lungs: CTA Assessment and Plan Assessment Anesthesia Assessment: Anesthesia Plan Discussed and Chart Reviewed Final Anesthetic Review Family History of Problems with Anesthesia: No History of Problems with Anesthesia: No NPO: Yes ASA Class: II Final Preanesthetic Review: Meds/Allgs Chart Reviewed, Consent Obtained/Reviewed and Anes Risks/Benef Reviewed Patient Risk: Low Procedure Risk: Low Anesthetic Plan Anesthetic Plan: MAC: Disposition: Standard PACU
--- NOTE | 2024-03-12 09:32 | HO.OPN-COLON ---
Colonoscopy Operative Note Operative Note Date of Service: 03/12/24 Narrative: Operative Information Procedure Description: Colonoscopy Indication: hx of colon polyps Anesthesia: MAC COLONOSCOPY Instrument: Olympus variable stiffness pediatric scope 190L Colonoscopy Monitoring: Vital signs and clinical assessment, continuous EKG monitoring, Pulse oximetry, Carbon Dioxide monitoring and blood pressure monitoring were done throughout the procedure. Colon withdrawal time was 18 minutes. Procedure: The patient was placed in the left lateral decubitis position and pre-procedure medications were administered. After a digital rectal examination of the ano-rectum, the video colonoscope was inserted into the rectum and advanced through the colon to the cecum/TI. The colonoscope was slowly withdrawn in a retrograde panoramic fashion and the colon mucosa was carefully examined including a retroflexed view of the rectum. Findings and interventions are described below. Procedure Difficulty: moderate Findings: Terminal Ileum-normal Cecum: 7-8 mm sessile polyp removed with cold snare, 3-4 mm sessile polyp removed with cold forceps Ascending Colon: x2 sessile polyps 5-7 mm removed with cold snare Transverse Colon - x1 sessile polyp 7-8 mm removed with cold snare Descending Colon:normal Sigmoid Colon: normal Rectum: Retroflexion with small internal hemorrhoids seen, grade I Anorectum - normal Intervention: cold forceps, cold biopsy Colon preparation: [place] Bowel Preparation Scale Right colon; 2 Transverse colon: 2 Left colon; 2 (0 = Unprepared colon segment with mucosa not seen due to solid stool that cannot be cleared. 1 = Portion of mucosa of the colon segment seen, but other areas of the colon segment not well seen due to staining, residual stool and/or opaque liquid. 2 = Minor amount of residual staining, small fragments of stool and/or opaque liquid, but mucosa of colon segment seen well. 3 = Entire mucosa of colon segment seen well with no residual staining, small fragments of stool or opaque liquid) Impression and Post Procedure Diagnosis: colon polyps internal hemorrhoids Plan: High fiber diet leaflet Avoid straining at stool, epsom salts and sitz bath, anusol supps or cream Repeat Colonoscopy in 1 year or earlier if clinically indicated Consider genetic testing Above findings were reviewed with the patient and relevant handouts were provided if indicated.
[2024-03-12 09:40] VITALS: BP 92/68; PULSE 82; RESP 16; TEMP 36.1; O2SAT 96
[2024-03-12 09:55] VITALS: BP 115/81; PULSE 83; RESP 16; TEMP 36.8; O2SAT 96
== END 2024-03-12 10:20 | disposition home or self-care (01) ==
PROVIDERS: PCP Internal Medicine; Visit Provider Internal Medicine Gastroenterology
PROC: 0DJD8ZZ Inspection of Lower Intestinal Tract, Via Natural or Artificial Opening Endoscopic (ICD-10-PCS; CPT 45378; principal; 2024-03-12 09:10)
DX: Z12.11 Encounter for screening for malignant neoplasm of colon (principal); Z86.0101 Personal history of adenomatous and serrated colon polyps; D12.0 Benign neoplasm of cecum; D12.2 Benign neoplasm of ascending colon; K63.5 Polyp of colon; K64.0 First degree hemorrhoids; M85.80 Other specified disorders of bone density and structure, unspecified site; J32.9 Chronic sinusitis, unspecified; E55.9 Vitamin D deficiency, unspecified; G43.909 Migraine, unspecified, not intractable, without status migrainosus; N87.0 Mild cervical dysplasia; Z79.899 Other long term (current) drug therapy; Z88.6 Allergy status to analgesic agent; Z88.8 Allergy status to other drugs, medicaments and biological substances
CPT/HCPCS: 45385; 45380; 88305; J2003; J2704; Q9968

== ENCOUNTER → 2024-03-12 06:25 | Outpatient (BNV) | payer MEDICAID, SELFPAY | PROVIDERS: PCP Internal Medicine; Visit Provider Internal Medicine Gastroenterology | DX: Z12.11 Encounter for screening for malignant neoplasm of colon (principal); Z86.0100 Personal history of colon polyps, unspecified; D12.2 Benign neoplasm of ascending colon; D12.0 Benign neoplasm of cecum; K63.5 Polyp of colon; K64.0 First degree hemorrhoids | CPT/HCPCS: 45380; 45385 ==

== ENCOUNTER 2024-03-24 13:10 | Outpatient (AMB) | payer MEDICAID, SELFPAY ==
--- NOTE | 2024-03-24 13:19 | A.OFFVIS_ITS ---
Vital Signs 03/24/24 13:21 BP 118/74 Intake Visit Reasons: Colposcopy/DO NOT RS Pharmacy Teacher Required: Yes Pharmacy Teacher Language: Dot Etcher Apprentice Services: Pharmacy Teacher Present (in person) Pharmacy Teacher Name: CLARK Mitchell Information Interpreted: non-clinical & clinical Accompanied by: Self / Same As Patient Allergies risperidone Allergy (Intermediate, Verified 03/24/24 13:22) HIVES ibuprofen [From MOTRIN] Allergy (Unknown, Verified 03/24/24 13:22) STOMACH ACHE tramadol [TRAMADOL] Adverse Reaction (Intermediate, Verified 03/24/24 13:22) GI PAIN shrimp and clams Allergy (Severe, Uncoded 01/28/24 14:35) Anaphylaxis HPI Comments Details: Presenting for abnormal Pap smear showing ascus/HPV E6 E7 positive, HPV 16/18/45 negative PFSH Medical History Dysplasia of cervix, low grade (BETH 1) Chronic sinusitis Migraine Vitamin D deficiency Osteopenia Surgical History Hx of colonoscopy History of cholecystectomy H/O LEEP Hx of tonsillectomy Hx of abdominal hysterectomy Hx of section Family History Father No problems noted. 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 We thoroughly discussed the procedure itself, including its details, alternatives, and all associated risks. This included but not limited to the following complications such as bleeding, infection, and injury to the vagina, bladder, and vessels, as well as the potential need for transfusion with all its associated risks. Subsequently, the patient sign the consent. Pap smear result: Ascus HPV E6 E7 positive Urine test in office = Negative Procedure: During the procedure, the following steps were performed: A speculum was inserted, and acetic acid was applied. Colposcopy was conducted, allowing visualization of the transformation zone. Acetowhite lesions were identified at the 6+9 o'clock position. Cervical biopsies were obtained from the 6+9 o'clock position, followed by an endocervical curettage (ECC). Vaginoscopy of the upper vagina revealed no evidence of aceto-white lesions. Hemostasis was achieved using Monsel solution, and the patient tolerated the procedure well. Post-Procedure Instructions: The patient was advised to promptly contact the office or the after hours answering service or go to the emergency room if experiencing a temperature exceeding 100.4?F, abdominal pain, nausea/vomiting, or bleeding. Additionally, the patient was instructed to abstain from vaginal intercourse and bathtub use. The patient confirmed understanding of these instructions. Discharge Instructions: The patient was instructed to schedule a follow-up appointment in 2 weeks for further evaluation and management. Please note that this note was generated using a voice recognition program, and errors may have occurred during sheep herder. [id number] of cervix including upper vagina with biopsy and ECC Procedure code (CPT) selection complete Assessment & Plan Assessment & Plan (1) ASCUS with positive high risk HPV: Category: Medical Plan: Discussed with the patient the result of her abnormal pap, its significance, risk of progression, persistence, and regression. the false positive/negative rate of a Pap smear as a screening test in detecting cervical cancer and the indication for a diagnostic test -colposcopy, biopsy, endocervical curettage. The patient verbalized understanding and agreed with the plan, all questions answered. Colpo/biopsy/ECC done, see procedure note Orders: Orders AMB Colposcopy Today R87.610 - Atypical squamous cells of undetermined significance on cytologic smear of cervix (ASC-US), R87.810 - Cervical high risk human papillomavirus (HPV) DNA test positive Coding Level of Care Code Procedure Only Diagnoses ASCUS with positive high risk HPV CPT Codes Colposcopy - CPT: 62462-[id number] of cervix including upper vagina with biopsy and ECC ([id number])
[2024-03-24 13:21] VITALS: BP 118/74
== END 2024-03-24 13:24 | disposition home or self-care (01) ==
PROVIDERS: PCP Internal Medicine; Visit Provider Obstetrics & Gynecology
DX: R87.610 Atypical squamous cells of undetermined significance on cytologic smear of cervix (ASC-US) (principal); R87.810 Cervical high risk human papillomavirus (HPV) DNA test positive
CPT/HCPCS: 57454

== ENCOUNTER 2024-03-24 13:10 | Outpatient (REF) | payer MEDICAID, SELFPAY | END 2024-03-24 13:11 | disposition home or self-care (01) | LOC: HO.LNP 13:10 | PROVIDERS: PCP Internal Medicine; Visit Provider Obstetrics & Gynecology | DX: R87.610 Atypical squamous cells of undetermined significance on cytologic smear of cervix (ASC-US) (principal); R87.810 Cervical high risk human papillomavirus (HPV) DNA test positive | CPT/HCPCS: 57454; 88305 ==

== ENCOUNTER 2024-05-08 12:04 | Outpatient (REF) | payer MEDICAID, SELFPAY ==
[2024-05-08 13:15] LABS: MANUAL DIFF FLAG NO
[2024-05-08 13:26] LABS: Basophils Absolute Auto 0.1 X10*3/uL (0.0-0.2); Basophils Percent Auto 0.8 % (0-2); Eosinophils Absolute Auto 0.1 X10*3/uL (0.0-0.4); Eosinophils Percent Auto 1.5 % (0-4); Hematocrit 41.6 % (37.0-47.0); Hemoglobin 13.8 g/dl (12.0-16.0); Imm Gran Abs Auto 0.03 X10*3/uL (0.00-0.03); Imm Gran Pct Auto 0.4 % (0.0-0.4); Lymphocytes Absolute Auto 2.1 X10*3/uL (1.2-4.9); Lymphocytes Percent Auto 27.5 % (20-40); Mean Corpuscular HGB Conc 33.2 g/dl (31.0-35.0); Mean Corpuscular Volume 90.4 fL (80.0-98.0); Mean Platelet Volume 10.2 fL (9.4-12.3); Monocytes Absolute Auto 0.6 X10*3/uL (0.1-1.2); Monocytes Percent Auto 7.6 % (2-11); Neutrophils Absolute Auto 4.7 x10*3/uL (2.0-8.3); Neutrophils Percent Auto 62.2 % (45-73); Platelet Count 316 X10*3/uL (160-400); Red Cell Distribution Width 12.5 % (11.0-16.0); White Blood Count 7.5 X10*3/uL (4.8-10.8)
[2024-05-08 13:44] LABS: Estimated Average Glucose 100 mg/dL; Hemoglobin A1C 112.9138 umol/L; Hemoglobin A1c % 5.1 % (<6.0); Total Hemoglobin (HGBA1C) 3479.7265 umol/L
[2024-05-08 14:02] LABS: Alanine Aminotransferase 12 U/L (0-31); Albumin Level 4.1 g/dL (3.5-5.0); Alkaline Phosphatase 107 U/L (39-117); Anion Gap 10 (12-20); Aspartate Amino Transferase 20 U/L (5-31); Bilirubin Total 1.2 mg/dL (0.0-1.0); Blood Urea Nitrogen 9 mg/dL (9-16); Calcium 9.1 mg/dL (8.4-10.2); Carbon Dioxide 29 mmol/L (22-29); Chloride 108 mmol/L (96-108); Cholesterol 176 mg/dL (<200); Estimated Glomerular Filt Rate > 60; Glucose Random 90 mg/dL (60-115); HDL Cholesterol 68 mg/dL (>40); LDL Cholesterol Calculated 98 mg/dL (<100); Potassium 4.3 mmol/L (3.3-5.1); Sodium 143 mmol/L (135-145); Total Protein 7.7 g/dL (6.5-8.0); Triglycerides 54 mg/dL (<150)
[2024-05-08 14:04] LABS: TSH reflex Free T4 1.18 uIU/mL (0.32-4.0); Vitamin D 25-OH Total 27.2 ng/mL (>30)
== END 2024-05-08 12:05 | disposition home or self-care (01) ==
LOC: HO.HHCL 12:04
PROVIDERS: Visit Provider Internal Medicine
DX: M79.7 Fibromyalgia (principal)
CPT/HCPCS: 36415; 80053; 80061; 82306; 83036; 84443; 85025

== ENCOUNTER → 2024-05-28 14:20 | Outpatient (BNVA) | payer MEDICAID, SELFPAY | PROVIDERS: PCP Internal Medicine; Visit Provider Obstetrics & Gynecology | DX: R87.610 Atypical squamous cells of undetermined significance on cytologic smear of cervix (ASC-US) (principal); R87.810 Cervical high risk human papillomavirus (HPV) DNA test positive | CPT/HCPCS: 99212 ==

== ENCOUNTER 2024-09-03 15:24 | Outpatient (REF) | payer MEDICAID, SELFPAY ==
--- OUTSIDE RECORDS SUMMARY | 2024-09-03 16:18 | XMS_ITS | Clinical Summary ---
Author Organization [employer] Address [address] [place] [address] 7[address] [place] [address] Care Team Providers Care Adventure Education Teacher Name Role Phone Luz Marina Pearson MD Primary Care Provide r Allergies Active Allergy Reactions Criticality Noted Date Comments Crab Extract High 08/02/2015 Other reaction(s): Anaphylaxis Risperidone 03/16/2014 Other reaction(s): Hives / Skin Rash Shellfish Allergy 04/10/2024 Tramadol 03/16/2014 Other reaction(s): Nausea / Vomiting Medications baclofen (Lioresal) 10 MG tabletIndicati ons:Chronic midline low back pain, unspecified whether sciatica present,Fibrom yalgia Take 1 tablet (10 mg) by mouth 3 times daily. 90 tablet 10/22/19 24 Active famotidine (Pepcid) 20 MG tabletIndicati ons:Chronic midline low back pain, unspecified whether sciatica present Take 1 tablet (20 mg) by mouth 2 times daily. 60 tablet 11 10/22/19 24 025 Active cholecalcifero l (Vitamin D-3) 25 MCG (1000 UT) tabletIndicati ons:Vitamin D deficiency Take 1 tablet (25 mcg) by mouth Once per day. 60 tablet 1 05/09/19 25 Active Diclofenac Sodium (Voltaren) 1 % gel Use topical BID 100 g 3 05/09/19 25 Active Ketotifen Fumarate 0.035 % solutionIndica tions:Seasonal allergies Administer 1 drop into affected eye(s) if needed in the morning and at bedtime (eye redness, itching). 10 mL 08/29/19 25 Active fluticasone (Flonase) 50 MCG/ACT nasal sprayIndicatio ns:Seasonal allergies Administer 1 spray into each nostril 2 times daily. Shake gently. Before first use, prime pump. After use, clean tip and replace cap. 16 g 08/29/19 026 Active cetirizine (ZyrTEC) 10 MG tabletIndicati ons:Seasonal allergies Take 1 tablet (10 mg) by mouth Once per day. Prn. 30 tablet 1 08/29/19 025 Active gabapentin (Neurontin) 300 MG capsuleIndicat ions:Chronic midline low back pain, unspecified whether sciatica present Take 1 capsule (300 mg) by mouth 3 times daily. 90 capsule 11 11/22/19 025 Discontinued(Me d list cleanup (will not trigger notification to Pharmacy)) neomycin-bacit racin-polymyxi n (Neosporin) 5-400-5000 ointmentIndica tions:Wound of skin Apply topically 3 times daily. 28 g 10/22/19 025 Discontinued(Me d list cleanup (will not trigger notification to Pharmacy)) sodium chloride (Carteret Nasal Kimball) 0.65 % nasal sprayIndicatio ns:Viral URI Administer 1 spray into each nostril if needed for congestion. 30 mL 12 02/08/20 025 Discontinued(Me d list cleanup (will not trigger notification to Pharmacy)) Active Problems Problem Noted Date Diagnosed Date Breast cancer screening by mammogram 09/03/2024 Overview (09/03/2024): 02/21/24 BI-RADS 1 - Negative Assessment & Plan (09/03/2024 2:33 PM EDT): 02/21/24 BI-RADS 1 - Negative Abnormal colonoscopy 09/03/2024 Overview (09/03/2024): Colonoscopy 03/21/23 showed polyps and internal hemorrhoids, repeat -12 months. -repeat 03/12/24 and needs repeat in 12 months. -scheduled for 02/2025 Assessment & Plan (09/03/2024 2:33 PM EDT): Colonoscopy 03/21/23 showed polyps and internal hemorrhoids, repeat -12 months. -repeat 03/12/24 and needs repeat in 12 months. -scheduled for 02/2025 Dietary counseling 09/03/2024 Assessment & Plan (09/03/2024 2:32 PM EDT): Dietary Recommendations: Fruits, vegetables, whole grains, protein foods, and fat-free or low-fat dairy products are healthy choices. Eat different types of protein foods in your diet. This can include seafood, lean meats, poultry, beans, peas, lentils, nuts, seeds, soy products, and eggs. Limit foods and beverages higher in added sugars, saturated fat, and sodium. Exercise counseling 09/03/2024 Assessment & Plan (09/03/2024 2:32 PM EDT): Exercise Recommendations: At least 150 minutes of moderate-intensity physical activity per week, or an equivalent combination of moderate- and vigorous-intensity activity. Overweight 09/03/2024 Wound of skin 10/22/2023 Fibromyalgia 04/20/2023 Assessment & Plan (04/10/2024 2:56 PM EST): Patient was educated about multidisciplinary approach for her condition, it was advise cardiovascular exercise, maintain hydration, treat anxiety/depression and take medications as directed Assessment & Plan (04/20/2023 3:06 PM EST): Patient was educated about multidisciplinary approach for her condition, it was advise cardiovascular exercise, maintain hydration, treat anxiety/depression and take medications as directed Abnormal Pap smear of cervix 04/20/2023 Overview (09/03/2024): 11/30/22 ASCUS - HPV positive 01/23/23 Colposcopy done, no biopsy needed. Follow-up in 2 weeks 02/02/[address] Norris for co-testing. Assessment & Plan (09/03/2024 2:33 PM EDT): 11/30/22 ASCUS - HPV positive 01/23/23 Colposcopy done, no biopsy needed. Follow-up in 2 weeks 02/02/[address] Norris for co-testing. 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 -follow-up with PCP in 6 months Assessment & Plan (10/22/2023 1:49 PM EDT): I will prescribe for patient TENS unit for her lower back pain Assessment & Plan (04/20/2023 3:06 PM EST): 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 with pain management Assessment & Plan (12/19/2022 4:39 PM EDT): 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 with pain management Assessment & Plan (11/24/2022 10:06 AM EDT): Apply heat on affected area [place] of gabapentin and baclofen Referral to pain management Allergic rhinitis 11/16/2022 Vitamin D deficiency 03/14/2012 Overview (09/03/2024): Lab Results Component Value Date [id number] 27.2 (L) 05/08/2024 - continue cholecalciferol (Vitamin D-3) 25 MCG (1000 UT) tablet Assessment & Plan (09/03/2024 2:04 PM EDT): Lab Results Component Value Date [id number] 27.2 (L) 05/08/2024 - continue cholecalciferol (Vitamin D-3) 25 MCG (1000 UT) tablet Osteoporosis 03/14/2012 Encounters Date Type Department Care Team Description 09/03/2024 2:15 PM EDT Office Visit [address] [address] Fay Patel MD Chronic midline low back pain, unspecified whether sciatica present (Primary Dx); Abnormal colonoscopy; Breast cancer screening by mammogram; Atypical squamous cells of undetermined significance on cytologic smear of cervix (ASC-US); Vitamin D deficiency; Overweight; Dietary counseling; Exercise counseling; Encounter for immunization; Encounter for preventative adult health care examination; Routine screening for STI (sexually transmitted infection) 09/03/[address] [address] Luz Marina Pearson MD November09/03/2024 Orders Only [facility] [address] [place] [address] Sergio Gruber MD 09/03/2024 Travel 09/02/[address] [address] Fay Patel MD CHART PREP 09/01/[address] [address] Luz Marina Pearson MD R\S APPT FOR 09/01/2024 08/28/2024 2:40 PM EDT Office Visit [facility] [address] [place] [id number] Seasonal allergies (Primary Dx) 08/28/[address] [address] Luz Marina Pearson MD chart prep 08/25/2024 Patient Outreach [address] [place] [address] Luz Marina Pearson MD Pre-visit Planning (SDOH screening negative and Tobacco screening negative) 07/11/2024 Population Health Risk Score Community [facility] ([facility] Department [address] [place] [phone] Provider, Population Health Generic 07/04/2024 Patient Outreach [facility] [address] [place] [address] Luz Marina Pearson MD Pre-visit Planning (Patient declined screening and cancelled visit) from Last 3 Months Immunizations Name Administration Dates Next Due Hep B, adult 04/21/2021,02/21/2018,01/22/2018 Influenza Injectable Quadriv alant Preservative Free IIV4 MDCK 02/07/2023 Influenza injectable quadriv alent IIV4 with preservative 01/29/2018,06/14/2017,02/26/2015 Influenza injectable quadriv alent preservative free 02/15/2021 Influenza, IIV3, injectable 01/16/2014 Influenza, Split (incl. gustavo fied surface antigen) 03/14/2012 Influenza, seasonal, injecta ble, preservative free 04/10/2024 Pneumococcal Conjugate PCV 20 09/03/2024 Tdap 04/10/2024,10/05/2011 Zoster, Recombinant 02/07/2023,12/06/2022 Social History Tobacco Use Types Packs/Day Years Used Date Smoking Tobacco: Never Passive Smoke Exposure: Never Smokeless Tobacco: Never Alcohol Use Standard Drinks/Week Comments Never 0 (1 standard drink = 0.6 oz pur e alcohol) Depression Answer Date Recorded Patient Health Questionnaire-9 Score 0 09/03/2024 Patient Health Questionnaire-9 Score 0 09/03/2024 Last PHQ-9: Questionnaire Data Not on file 0 09/03/2024 Housing Stability Answer Date Recorded What is your housing situation today? I have dolly jasso 02/14/[address] you li ve. Do you have problems with any of the following? None of the above 02/14/2023 Food Insecurity Answer Date Recorded Within the past 12 months, y ou worried that your food would run out before you got money to buy more: Never True 04/03/2024 Within the past 12 months,th e food you bought just didn't last and you didn't have enough money to get more: Never True 08/2023 Transportation Answer Date Recorded In the past 12 months, has l ack of transportation kept you from medical appts, meetings, work or from getting things needed for daily living? No 04/03/2024 Utilities Answer Date Recorded In the past 12 months, has t he electric, gas, oil or water company threatened to shut off services in your home? No 02/14/2023 Depression Answer Date Recorded Patient Health Questionnaire-2 Score 0 09/03/2024 Internet Access Answer Date Recorded Internet Access Q1 Yes 04/03/2024 Internet Access Q2 Not on file 04/03/2024 Comments Unknown Sex and Gender Information Value Date Recorded Sex Assigned at Female 02/27/2022 10:18 AM EDT Legal Sex Female 10:18 AM EDT Gender Identity Female 02/27/2022 10:18 AM EDT Sexual Orientation Straight 02/27/2022 10 :18 AM EDT Last Filed Vital Signs Vital Sign Reading Time Taken Comments Blood Pressure 120/83 09/03/2024 2:16 PM EDT Pulse 90 09/03/2024 2:16 PM EDT Temperature 37.2 ??C (98.9 ??F) 09/03/2024 2:16 PM ED T Respiratory Rate 20 09/03/2024 2:16 PM EDT Oxygen Saturation 98% 09/03/2024 2:16 PM EDT Inhaled Oxygen Concentration - - Weight 75.6 kg (166 lb 9.6 oz) 09/03/2024 2:16 P M EDT Height 160 cm (5' 3 ) 09/03/2024 2:16 PM EDT Body Mass Index 29.51 09/03/2024 2:16 PM EDT Plan of Treatment Health Maintenance Due Date Last Done Comments CT Colonography 1971 FIT DNA/Cologuard 1971 FIT 1971 FOBT 1970 HIV Screening 1970 Sigmoidoscopy 1971 Hepatitis C Screening 11/12/1989 Mammogram 02/20/2025 02/21/2024, 042 08/2022, 08/22/2022, Additional history exists Colonoscopy 03/12/2025 03/12/2024, 03/01, 10/04/2021 Colorectal Cancer Screening 03/12/2025 Cervical Cancer Screening 03/25/2025 HPV/Cotest 03/25/2025 09/13/2021, 08/28, 09/07/2020, Additional history exists Pap Smear 03/25/2025 01/28/2024, 11/27/2022 Alcohol/Substance Use Screening 04/10/2025 04/10/2024 SDOH Screening 08/25/2025 08/25/2024 COVID-19 Vaccine ( season) 2025 Postponed from 12/30/2023 (Patient Refused) Depression Screening 09/03/2025 09/03/2024, 09/04/19 Family Planning (PISQ) 09/03/2025 09/03/2024 Tobacco Screening 09/03/2025 09/03/2024 DTaP/Tdap/Td Vaccines (3 - Td or Tdap) 04/10/2034 04/10/2024, 10/05/2011 RSV Patients and Patients Aged 60 years or older (1 - 1-dose 75+ series) 11/12/2046 Hepatitis B Vaccines Completed 04/21/2021, 02/21/2018, 01/22/2018 Zoster Vaccines Completed 02/07/2023, 12/06/2022 Influenza Vaccine Completed 04/10/2024, , 02/15/2021, Additional history exists Pneumococcal Vaccine: 50+ Years Completed 09/03/2024 HIB Vaccines Aged Out No longer eligi ble based on patient's age to complete this topic HPV Vaccines Aged Out No longer eligi ble based on patient's age to complete this topic Hepatitis A Vaccines Aged Out No long er eligible based on patient's age to complete this topic IPV Vaccines Aged Out No longer eligi ble based on patient's age to complete this topic Meningococcal Vaccine Aged Out No lazara regina eligible based on patient's age to complete this topic RSV under 20 months Aged Out No longe r eligible based on patient's age to complete this topic Rotavirus Vaccines Aged Out No longer eligible based on patient's age to complete this topic Procedures Procedure Name Priority Date/Time Associated Diagnosis Comments HM COLONOSCOPY Routine 03/12/2024 2:16 PM EST BI MAMMOGRAM SCREENING TOMOSYNTHESIS BILATERAL Routine 02/21/2024 2:22 PM EDT HM PAP/HPV Routine 01/28/2024 2:09 PM EDT ZZZ HISTORICAL HPV E6/E7 RFLX LILIAN 16 18/45 Routine 09/13/2021 2:27 PM EDT from Last 3 Months or Most Recently Relevant to Health Maintenance Results * Hm Colonoscopy (03/12/2024 2:16 PM EST) us Historical Provider MD HEALTH MAINTENANCE Final Result * BI Mammogram Screening Tomosynthesis Bilateral (02/21/2024 2:22 PM EDT) Anatomical Region Laterality Modality Breast Bilateral Mammography 02/21/2024 2:22 PM EDT Narrative 03/03/2024 4:19 PM EST ? [facility] ? [address] ?[place] [address] ? Mammography Report ? Signed ? Patient: Marie Lockwood ?MR#: [id number] ?? [id number] ? : 1970 ?Acct:[id number] ? Age/Sex: 53 / F ?ADM Date: 10/24/24 ? Loc: HO.MAMMO ? Attending Dr: Yayo Ron MD ? Ordering Physician: Yayo Ron MD ?Results: 1Negativ ?? e ? Date of Service: 02/20/24 ?Follow Up: 1 Year From Orig ?? inal Mammogram ? Procedure(s): MM tomosynthesis screening BI ?? Accession Number(s): [id number] ? cc: Luz Marina Pearson MD; Yayo Ron MD ? EXAMINATION: ?? MM SCREENING DIGITAL BREAST TOMOSYNTHESIS, BILATERAL ? CLINICAL INFORMATION: ? Screening. Asymptomatic. ? COMPARISON: ?? Mammography: Comparison is made with available priors ? TECHNIQUE: ?? Digital breast mammography with tomosynthesis is performed in both the ?? craniocaudal and mediolateral oblique views along with computer-aided ?? detection (CAD). ? FINDINGS: ?? There are scattered areas of fibroglandular density (ACR BI-RADS breast ?? composition Category b). ? There are no significant masses, abnormal calcifications, or other ?? abnormalities. ? MM/MM tomosynthesis screening BI ?? IMPRESSION: ?? No mammographic evidence of malignancy. ? ASSESSMENT: ? BI-RADS BI-RADS 1 - Negative ? RECOMMENDATION: ?? Routine annual mammography screening. ? 1 year F/U ? This examination should not preclude the clinical evaluation of a ?? suspicious palpable abnormality. ? This patient's information was entered into a reminder system with a ?? target due date for their next mammogram. ? Electronically signed by: ??Comfort Simons DO ??03/03/2024 04:16 PM EST ?? RP ? Dictated By: ?Comfort Simons DO ? Signed By: ?<Electronically signed by Comfort Simons, DO in OV> ? 03/03/24 1616 ? DD/ 1422 ? TD/TT: 02/21/24 1438 ? Domestic Technician: ? Procedure Note [place], Image - 03/03/2024 [place] [facility] [address] [place] [address] Mammography Report Signed Patient: Jun LockwoodHelio#: [id number] : 1970Acct:[id number] Age/Sex: 53 / FADM Date: 02/21/24 Loc: HO.MAMMO Attending Dr: Yayo Ron MD Ordering Physician: Yayo Ron MDResults: 1Negativ e Date of Service: 02/21/24Follow Up: 1 Year From Orig ina Mammogram Procedure(s): MM tomosynthesis screening BI Accession Number(s): [id number] cc: Luz Marina Pearson MD; Yayo Ron MD EXAMINATION: MM SCREENING DIGITAL BREAST TOMOSYNTHESIS, BILATERAL CLINICAL INFORMATION: Screening. Asymptomatic. COMPARISON: Mammography: Comparison is made with available priors TECHNIQUE: Digital breast mammography with tomosynthesis is performed in both the craniocaudal and mediolateral oblique views along with computer-aided detection (CAD). FINDINGS: There are scattered areas of fibroglandular density (ACR BI-RADS breast composition Category b). There are no significant masses, abnormal calcifications, or other abnormalities. MM/MM tomosynthesis screening BI IMPRESSION: No mammographic evidence of malignancy. ASSESSMENT: BI-RADS BI-RADS 1 - Negative RECOMMENDATION: Routine annual mammography screening. 1 year F/U This examination should not preclude the clinical evaluation of a suspicious palpable abnormality. This patient's information was entered into a reminder system with a target due date for their next mammogram. Electronically signed by: Comfort Simons DO 03/03/2024 04:16 PM [facility] Dictated By: Comfort Simons DO Signed By: <Electronically signed by Comfort Simons DO in OV> 03/03/24 1616 DD/ 1422 TD/TT: 02/21/24 1438 Domestic Technician: [facility] External Provider IMG BI PROCEDURES Edited Result - Final * HM PAP/HPV (01/28/2024 2:09 PM EDT) Historical Provider HEALTH MAINTENANCE Final Result * (ABNORMAL) HPV E6/E7 RFLX LILIAN 16 18/45 (09/13/2021 2:27 PM EDT) HPV 16 RNA NOT DETECTED NOT DETECTED [facility] HPV 18/45 RNA NOT DETECTED NOT DETECTED [facility] Comment: Methodology: Home Visitor [employer] Head Start Mediated Amplification The analytical performance characteristics of this assay have been determined by [email or web address]. The modifications have not been cleared or approved by the FDA. This assay has been validated pursuant to the CLIA regulations and is used for clinical purposes. THIS TEST WAS PERFORMED AT: [facility] [address] [place] [address],[place], [place] ??[phone] ALYSIA FLOYD MD HPV mRNA E6/E7 rflx Detected(A) Not Detected [facility] Comment: Methodology: Home Visitor [employer]-Mediated Amplification This assay detects E6/E7 viral messenger RNA (mRNA) from 14 high-risk HPV types (16,18,31,33,35,39,45,51,52,56,58,59,66,68). The analytical performance characteristics of this assay have been determined by [email or web address]. The modifications have not been cleared or approved by the FDA. This assay has been validated pursuant to the CLIA regulations and is used for clinical purposes. For additional information, please refer to http://education.Superb/faq/ICO717y4 (This link if provided for information/ educational purposes only.) THIS TEST WAS PERFORMED AT: [facility] [address],[facility] [place], [place] ??[phone] ALYSIA FLOYD MD 09/13/2021 2:27 PM EDT us Latisha Dumont HISTORICAL/NON ORDERABLE LABS Fi nal Result [facility] [address] from Last 3 Months or Most Recently Relevant to Health Maintenance Insurance STANDARD Care Teams Adventure Education Teacher Relationship Specialty Start Date End Date Luz Marina Pearson MD [address] [place] [id number] PCP - General Family Medicine 01/09/18
--- OUTSIDE RECORDS SUMMARY | 2024-09-03 16:18 | XMS_ITS | Encounter Summary ---
Author Organization [employer] Address [address] [facility] 7[address] [place] [address] Care Team Providers Care Language Pathologist Name Role Phone Luz Marina Pearson MD Primary Care Provide r Encounter Details Date Type Department Care Team (Latest Contact Info) Description 09/03/2024 Travel Social History Tobacco Use Types Packs/Day Years [...] Orientation Straight 02/27/2022 10 :18 AM EDT documented as of this encounter Plan of Treatment Not on file documented as of this encounter Visit Diagnoses Not on filedocumented in this encounter Additional Health Concerns Assessment Noted Time PHQ-9 Depression Total Score: 0 09/04/19 25 2:17 PM EDT documented as of this encounter Care Teams Language Pathologist Relationship Specialty Start Date End Date Luz Marina Pearson MD [address] [place] [address] PCP - General Family Medicine 01/09/18 documented as of this encounter
--- OUTSIDE RECORDS SUMMARY | 2024-09-03 16:18 | XMS_ITS | Encounter Summary ---
Author Organization [employer] Address [address] [place] [address] 7[address] [place] [address] Care Team Providers Care Senior Biostatistician Name Role Phone Luz Marina Pearson MD Primary Care Provide r Encounter Details Date Type Department Care Team (Late st Contact Info) Description 02/01/2023 Abstract [facility] [address] [place], [place] [phone] Mirtha Cortes Social History Tobacco Use Types Packs/Day Years Used Date Smoking Tobacco: Never Passive Smoke Exposure: Never Smokeless Tobacco: Never Alcohol Use Standard Drinks/Week Comments Never 0 (1 standard drink = 0.6 oz pur e alcohol) Depression Answer Date Recorded Patient Health Questionnaire-9 Score 0 11/21/2022 Depression Answer Date Recorded Patient Health Questionnaire-2 Score 0 11/21/2022 Comments Unknown Sex and Gender Information Value [...] Noted Time PHQ-9 Depression Total Score: 0 11/22/19 23 3:07 PM EDT documented as of this encounter Care Teams Senior Biostatistician Relationship Specialty Start Date End Date Luz Marina Pearson MD [address] [place], [place] [phone] PCP - General Family Medicine 01/09/18 documented as of this encounter
--- OUTSIDE RECORDS SUMMARY | 2024-09-03 16:18 | XMS_ITS | Encounter Summary ---
Author Organization [employer] Address [address] [place] [address] 7t [place] [address] Care Team Providers Care Automotive Sales Associate Name Role Phone Luz Marina Pearson MD Primary Care Provide r Reason for Visit * Reason Comments Annual Exam Encounter Details Date Type Department Care Team ([facility] st Contact Info) Description 09/03/2024 2:15 PM EDT Office Visit [facility] [address] [place] [address] Fay Patel MD [address] [place] [address] Chronic midline low back pain, unspecified whether sciatica present (Primary Dx); Abnormal colonoscopy; Breast cancer screening by mammogram; Atypical squamous cells of undetermined significance on cytologic smear of cervix (ASC-US); Vitamin D deficiency; Overweight; Dietary counseling; Exercise counseling; Encounter for immunization; Encounter for preventative adult health care examination; Routine screening for STI (sexually transmitted infection) Social History Tobacco Use Types Packs/Day Years [...] AM EDT documented as of this encounter Last Filed Vital Signs Vital Sign Reading [...] Mass Index 29.51 09/03/2024 2:16 PM EDT documented in this encounter Progress Notes * Fay Patel MD - 09/03/2024 2:15 PM EDT Dara Salazar is a 53 y.o. female with past medical history of fibromyalgia and vitamin D deficiency who presents to the office today for comprehensive annual evaluation. PCP Luz Marina Pillai. Pt reports doing well, only concern about chronic back pain. Will follow-up with PCP in 6 months. She reports she did have a mild fall last week. Mild bruising but denies serious known injury. Has colonoscopy scheduled for 02/2025. Agrees to vaccines today. Social History Lives with daughter, son-in-law and their kids. Tobacco: denied Drugs: none Alcohol: No Sexuality: Denies current sexual activity Suicide/Depression: The patient denies any present symptoms of depression or anxiety. Review of Systems Constitutional: Negative for fatigue, fever and unexpected weight change. Respiratory: Negative for cough. Cardiovascular: Negative for chest pain. Gastrointestinal: Negative for abdominal pain. Genitourinary: Negative for difficulty urinating. Current Outpatient Medications: baclofen (Lioresal) 10 MG tablet, Take 1 tablet (10 mg) by mouth 3 times daily., Disp: 90 tablet, Rfl: 0 cetirizine (ZyrTEC) 10 MG tablet, Take 1 tablet (10 mg) by mouth Once per day. Prn., Disp: 30 tablet, Rfl: 1 cholecalciferol (Vitamin D-3) 25 MCG (1000 UT) tablet, Take 1 tablet (25 mcg) by mouth Once per day., Disp: 60 tablet, Rfl: 1 Diclofenac Sodium (Voltaren) 1 % gel, Use topical BID, Disp: 100 g, Rfl: 3 famotidine (Pepcid) 20 MG tablet, Take 1 tablet (20 mg) by mouth 2 times daily., Disp: 60 tablet, Rfl: 11 fluticasone (Flonase) 50 MCG/ACT nasal spray, Administer 1 spray into each nostril 2 times daily. Shake gently. Before first use, prime pump. After use, clean tip and replace cap., Disp: 16 g, Rfl: 1 Ketotifen Fumarate 0.035 % solution, Administer 1 drop into affected eye(s) if needed in the morning and at bedtime (eye redness, itching)., Disp: 10 mL, Rfl: 0 Allergies Allergen Reactions Crab Extract Other reaction(s): Anaphylaxis Risperidone Other reaction(s): Hives / Skin Rash Seafood [Shellfish Allergy] Tramadol Other reaction(s): Nausea / Vomiting Past Medical History: Diagnosis Date Tendinitis of thumb 05/09/2024 right thumb, ortho dme dispensed with md order Dx kan Hodge MD History reviewed. No pertinent surgical history. No family history on file. Objective Visit Vitals BP 120/83 (BP Location: Left arm, Patient Position: Sitting, BP Cuff Size: Adult) Pulse 90 Temp 98.9 ??F (37.2 ??C) (Oral) Resp 20 Ht 5' 3 (1.6 m) Wt 166 lb 9.6 oz (75.6 kg) SpO2 98% BMI 29.51 kg/m?? Smoking Status Never BSA 1.83 m?? Physical Exam Constitutional: Appearance: Normal appearance. HENT: Head: Normocephalic. Right Ear: Tympanic membrane normal. Left Ear: Tympanic membrane normal. Mouth/Throat: Pharynx: Oropharynx is clear. Eyes: Pupils: Pupils are equal, round, and reactive to light. Cardiovascular: Rate and Rhythm: Normal rate and regular rhythm. Heart sounds: Normal heart sounds. Pulmonary: Effort: Pulmonary effort is normal. Breath sounds: Normal breath sounds. Chest: Breasts: Sukh Score is 5. Breasts are symmetrical. Right: Normal. No inverted nipple, mass, nipple discharge or skin change. Left: Normal. No inverted nipple, mass, nipple discharge or skin change. Abdominal: General: Abdomen is flat. Palpations: There is no mass. Tenderness: There is no abdominal tenderness. Musculoskeletal: General: Normal range of motion. Cervical back: Normal range of motion and neck supple. Lymphadenopathy: Cervical: No cervical adenopathy. Upper Body: Right upper body: No supraclavicular or axillary adenopathy. Left upper body: No supraclavicular or axillary adenopathy. Skin: General: Skin is warm and dry. Neurological: General: No focal deficit present. Mental Status: She is alert. Psychiatric: Behavior: Behavior normal. Office Visit on 04/10/2024 Component Date Value Sodium 05/08/2024 143 Potassium 05/08/2024 4.3 Chloride 05/08/2024 108 Carbon Dioxide 05/08/2024 29 Anion Gap 05/08/2024 10 (L) Urea Nitrogen (BUN) 05/08/2024 9 Creatinine, Serum 05/08/2024 0.64 Estimated Glomerular Gallito* 05/08/2024 >60 Glucose 05/08/2024 90 Calcium 05/08/2024 9.1 Bilirubin, Total 05/08/2024 1.2 (H) Aspartate Amino Transfer* 05/08/2024 20 Alanine Aminotransferase 05/08/2024 12 Total Protein 05/08/2024 7.7 Albumin Level 05/08/2024 4.1 Alkaline Phosphatase 05/08/2024 107 White Blood Count 05/08/2024 7.5 Red Blood Count 05/08/2024 4.60 Hemoglobin 05/08/2024 13.8 Hematocrit 05/08/2024 41.6 Mean Corpuscular Volume 05/08/2024 90.4 Mean Corpuscular Hemoglo* 05/08/2024 30.0 Mean Corpuscular HGB Conc 05/08/2024 33.2 Red Cell Distribution Wi* 05/08/2024 12.5 Platelet Count 05/08/2024 316 Mean Platelet Volume 05/08/2024 10.2 Neutrophils Percent Auto 05/08/2024 62.2 Imm Gran Pct Auto 05/08/2024 0.4 Lymphocytes Percent Auto 05/08/2024 27.5 Monocytes Percent Auto 05/08/2024 7.6 Eosinophils Percent Auto 05/08/2024 1.5 Basophils Percent Auto 05/08/2024 0.8 NRBC Pct Auto 05/08/2024 0.0 Neutrophils Absolute Auto 05/08/2024 4.7 Imm Gran Abs Auto 05/08/2024 0.03 Lymphocytes Absolute Au* 05/08/2024 2.1 Monocytes Absolute Auto 05/08/2024 0.6 Eosinophils Absolute Auto 05/08/2024 0.1 Basophils Absolute Auto 05/08/2024 0.1 NRBC Abs Auto 05/08/2024 0.000 Triglycerides 05/08/2024 54 Cholesterol 05/08/2024 176 LDL Cholesterol Calculat* 05/08/2024 98 HDL Cholesterol 05/08/2024 68 Hemoglobin A1c 05/08/2024 5.1 Estimated Average Glucose 05/08/2024 100 Vitamin D 25-OH Total 05/08/2024 27.2 (L) TSH reflex Free T4 05/08/2024 1.18 53 y.o. female annual evaluation Problem List Items Addressed This Visit Chronic low back pain - Primary Reports chronic back pain. -follow-up with PCP in 6 months Abnormal colonoscopy Colonoscopy 03/21/23 showed polyps and internal hemorrhoids, repeat -12 months. -repeat 03/12/24 and needs repeat in 12 months. -scheduled for 02/2025 Breast cancer screening by mammogram 02/21/24 BI-RADS 1 - Negative Abnormal Pap smear of cervix 11/30/22 ASCUS - HPV positive 01/23/23 Colposcopy done, no biopsy needed. Follow-up in 2 weeks 02/02/[address] Norris for co-testing. Vitamin D deficiency Lab Results Component Value Date [id number] 27.2 (L) 05/08/2024 - continue cholecalciferol (Vitamin D-3) 25 MCG (1000 UT) tablet Overweight Dietary counseling Dietary Recommendations: Fruits, vegetables, whole grains, protein foods, and fat-free or low-fat dairy products are healthychoices. Eat different types of protein foods in your diet. This can include seafood, lean meats, poultry, beans, peas, lentils, nuts, seeds, soy products, and eggs. Limit foods and beverages higher in added sugars, saturated fat, and sodium. Exercise counseling Exercise Recommendations: At least 150 minutes of moderate-intensity physical activity per week, or an equivalent combinationof moderate- and vigorous-intensity activity. Encounter for preventative adult health care examination PE done today 09/03/24 -On wait list for Dentist Other Visit Diagnoses Encounter for immunization Annual Evaluation -Normal growth and development. -Anticipatory guidance discussed. -Preventative care / harm reduction discussed. Follow up in about 6 months (around 03/06/2025) for PCP - follow-up. I, Kenyetta Gage, am serving as a scribe to document services personally performed by Dr. Givens, based on the patient's response to questions by provider and providers statements to me. documented in this encounter Miscellaneous Notes * Assessment & Plan Note - Kenyetta Gage - 09/03/2024 2:33 PM EDTAssociated Problem(s): Abnormal colonoscopy Colonoscopy 03/21/23 showed polyps and internal hemorrhoids, repeat -12 months. -repeat 03/12/24 and needs repeat in 12 months. -scheduled for 02/2025 * Assessment & Plan Note - Courtneyeder Merari - 09/03/2024 2:33 PM EDTAssociated Problem(s): Abnormal Pap smear of cervix 11/30/22 ASCUS - HPV positive 01/23/23 Colposcopy done, no biopsy needed. Follow-up in 2 weeks 02/02/[address] Norris for co-testing. * Assessment & Plan Note - Kenyetta Gage - 09/03/2024 2:33 PM EDTAssociated Problem(s): Breast cancer screening by mammogram 02/21/24 BI-RADS 1 - Negative * Assessment & Plan Note - Courtneyeder Merari - 09/03/2024 2:32 PM EDTAssociated Problem(s): Chronic low back pain Reports chronic back pain. -follow-up with PCP in 6 months * Assessment & Plan Note - Kenyetta Gage - 09/03/2024 2:32 PM EDTAssociated Problem(s): Exercise counseling Exercise Recommendations: At least 150 minutes of moderate-intensity physical activity per week, or an equivalent combinationof moderate- and vigorous-intensity activity. * Assessment & Plan Note - Courtneyeder Cejaer - 09/03/2024 2:32 PM EDTAssociated Problem(s): Dietary counseling Dietary Recommendations: Fruits, vegetables, whole grains, protein foods, and fat-free or low-fat dairy products are healthychoices. Eat different types of protein foods in your diet. This can include seafood, lean meats, poultry, beans, peas, lentils, nuts, seeds, soy products, and eggs. Limit foods and beverages higher in added sugars, saturated fat, and sodium. * Assessment & Plan Note - Kenyetta Gage - 09/03/2024 2:30 PM EDTAssociated Problem(s): Encounter for preventative adult health care examination PE done today 09/03/24 -On wait list for Dentist * Assessment & Plan Note - Kenyetta Gage - 09/03/2024 2:04 PM EDTAssociated Problem(s): Vitamin D deficiency Lab Results Component Value Date [id number] 27.2 (L) 05/08/2024 - continue cholecalciferol (Vitamin D-3) 25 MCG (1000 UT) tablet documented in this encounter Plan of Treatment Scheduled Orders Name Type Priority Associated Diagnoses Orde r Schedule Hepatitis C Antibody with Reflex to HCV, RNA, Quantitative, Real-Time PCR Lab Routine Routine screening for STI (sexually transmitted infection) Expected: 09/03/2024, Expires: 09/03/2025 HIV-1/2 Antigen and Antibodies, Fourth Generation, with Reflexes Lab Routine Routine screening for STI (sexually transmitted infection) Expected: 09/03/2024 (Approximate), Expires: 09/03/2025 documented as of this encounter Visit Diagnoses Diagnosis Chronic midline low back pain, unspecified whether sciatica present- Primary Abnormal colonoscopy Breast cancer screening by mammogram Atypical squamous cells of undetermined significance on cytologic smear of cervix (ASC-US) Vitamin D deficiency Overweight Dietary counseling Dietary surveillance and counseling Exercise counseling Encounter for immunization Encounter for preventative adult health care examination Routine screening for STI (sexually transmitted infection) Screening examination for venereal disease documented in this encounter Additional Health Concerns Assessment Noted Time PHQ-9 Depression Total Score: 0 09/04/19 25 2:17 PM EDT documented as of this encounter Care Teams Automotive Sales Associate Relationship Specialty Start Date End Date Luz Marina Pearson MD [address] [place] [id number] PCP - General Family Medicine 01/09/18 documented as of this encounter
--- OUTSIDE RECORDS SUMMARY | 2024-09-03 16:18 | XMS_ITS | Encounter Summary ---
Author Organization [employer] Address [address] [place] [address] 7t [place] [address] Care Team Providers Care Purchasing Officer Name Role Phone Luz Marina Pearson MD Primary Care Provide r Reason for Visit * Reason Onset Date Comments R\S APPT FOR 09/01/2024 09/01/2024 Encounter Details Date Type Department Care Team ([facility] st Contact Info) Description 09/01/2024 Telephone [facility] MEDICINE [address] [place], [place] [phone] Luz Marina Pearson MD [address] [place] [address] R\S APPT FOR 09/01/2024 Social History Tobacco Use Types Packs/Day Years Used Date Smoking Tobacco: Never Passive Smoke Exposure: Never Smokeless Tobacco: Never Alcohol Use Standard Drinks/Week Comments Never 0 (1 standard drink = 0.6 oz pur e alcohol) Depression Answer Date Recorded Patient Health Questionnaire-9 Score 0 11/21/2022 Housing Stability Answer Date Recorded What is [...] Recorded Patient Health Questionnaire-2 Score 0 11/21/2022 Internet Access Answer Date Recorded Internet Access Q1 Yes 04/03/2024 Internet Access Q2 Not on file 04/03/2024 Comments Unknown Sex and Gender Information Value Date Recorded Sex Assigned at Female 02/27/2022 10:18 AM EDT Legal Sex Female 10:18 AM EDT Gender Identity Female 02/27/2022 10:18 AM EDT Sexual Orientation Straight 02/27/2022 10 :18 AM EDT documented as of this encounter Miscellaneous Notes * Telephone Encounter - Yaya Odonnell MA - 09/01/2024 11:08 AM EDT TC- Patient to r\s appt on 09/01/2024 due to provider sick . Patient was mere for 10/07/2024 at 2 pm. documented in this encounter Plan of Treatment Not on file documented as of this encounter Visit Diagnoses Not on filedocumented in this encounter Additional Health Concerns Assessment Noted Time PHQ-9 Depression Total Score: 0 11/22/19 23 3:07 PM EDT documented as of this encounter Care Teams Purchasing Officer Relationship Specialty Start Date End Date Luz Marina Pearson MD [address] [place] [phone] PCP - General Family Medicine 01/09/18 documented as of this encounter
--- OUTSIDE RECORDS SUMMARY | 2024-09-03 16:18 | XMS_ITS | Encounter Summary ---
Author Organization [employer] Address [address] [place] [address] 7t [place] [address] Care Team Providers Care Quality Control Assistant Name Role Phone Luz Marina Pearson MD Primary Care Provide r Reason for Visit * Reason Onset Date Comments November09/03/2024 Encounter Details Date Type Department Care Team ([facility] st Contact Info) Description 09/03/2024 Telephone [facility] MEDICINE [address] [place], [place] [phone] Luz Marina Pearson MD [address] [place], [place] [phone] NOVEMBER RECALL Social History Tobacco Use Types Packs/Day Years [...] Telephone Encounter - Yaya Odonnell MA - 09/03/2024 3:27 PM EDT TC- Patient to schedule an appt (November) with [facility] to call back to sche appt. documented in this encounter Plan of Treatment Not on file documented as of this encounter Visit Diagnoses Not on filedocumented in this encounter Additional Health Concerns Assessment Noted Time PHQ-9 Depression Total Score: 0 09/04/19 25 2:17 PM EDT documented as of this encounter Care Teams Quality Control Assistant Relationship Specialty Start Date End Date Luz Marina Pearson MD [address] [place] [address] PCP - General Family Medicine 01/09/18 documented as of this encounter
--- OUTSIDE RECORDS SUMMARY | 2024-09-03 16:18 | XMS_ITS | Encounter Summary ---
Author Organization [employer] Address [address] [facility] 7t [place] [address] Care Team Providers Care Assistant Branch Operations Manager Name Role Phone Luz Marina Pearson MD Primary Care Provide r Encounter Details Date Type Department Care Team (Late st Contact Info) Description 06/04/2024 Telephone [facility]INE [address] [place], [place] [phone] Luz Marina Pearson MD [address] [place], [place] [phone] Social History Tobacco Use Types Packs/Day Years Used Date Smoking Tobacco: Never Passive Smoke Exposure: Never Smokeless Tobacco: Never Alcohol Use Standard Drinks/Week Comments Never 0 (1 standard drink = 0.6 oz pur e alcohol) Depression Answer Date Recorded Patient Health Questionnaire-9 Score 0 11/21/2022 Housing Stability Answer Date Recorded What is your housing situation today? I have dollykami jasso 02/14/[address] you [...] documented as of this encounter Care Teams Assistant Branch Operations Manager Relationship Specialty Start Date End Date Luz Marina Pearson MD [address] [place] [id number] PCP - General Family Medicine 01/09/18 documented as of this encounter
--- OUTSIDE RECORDS SUMMARY | 2024-09-03 16:18 | XMS_ITS | Encounter Summary ---
Author Organization [employer] Address [address] [facility] 7t [place] [address] Care Team Providers Care Electronic Development Technician Name Role Phone Luz Marina Pearson MD Primary Care Provide r Encounter Details Date Type Department Care Team (Late st Contact Info) Description 09/03/2024 Orders Only [facility] [address] [place], [place] [phone] Provider, MD Sergio Social History Tobacco Use Types Packs/Day Years [...] on file documented as of this encounter Procedures Procedure Name Priority Date/Time Associated Diagnosis Comments COLPOSCOPY Routine 03/25/2024 2:14 PM EST HM COLONOSCOPY Routine 03/12/2024 2:16 PM EST HM PAP/HPV Routine 01/28/2024 2:09 PM EDT documented in this encounter Results * Colposcopy (03/25/2024 2:14 PM EST) Historical Provider IN CLINIC/BEDSIDE ORDERAB LES Final Result * Hm Colonoscopy (03/12/2024 2:16 PM EST) Historical Provider HEALTH MAINTENANCE Final Result * HM PAP/HPV (01/28/2024 2:09 PM EDT) Historical Provider HEALTH MAINTENANCE Final Result documented in this encounter Visit Diagnoses Not on filedocumented in this encounter Additional Health Concerns Assessment Noted Time PHQ-9 Depression Total Score: 0 09/04/19 25 2:17 PM EDT documented as of this encounter Care Teams Electronic Development Technician Relationship Specialty Start Date End Date Luz Marina Pearson MD [address] [place] [address] PCP - General Family Medicine 01/09/18 documented as of this encounter
--- OUTSIDE RECORDS SUMMARY | 2024-09-03 16:18 | XMS_ITS | Encounter Summary ---
Author Organization [employer] Address [address] [place] [address] [address] [place] [address] Care Team Providers Care Dental Mechanic Name Role Phone Luz Marina Pearson MD Primary Care Provide r Reason for Visit * Reason Onset Date Comments CHART PREP 09/02/2024 Encounter Details Date Type Department Care Team ([facility] st Contact Info) Description 09/02/2024 Telephone [facility] MEDICINE [address] [place], [place] [phone] Fay Patel MD [address] [place] [address] CHART PREP Social History Tobacco Use Types Packs/Day Years [...] encounter Miscellaneous Notes * Telephone Encounter - Bhumika Hernandez [place] - 09/02/2024 2:19 PM EDT Chart Prep Labs: done from 05/08/24 Images: not applicable Referrals: not applicable Vaccines due: PCV20 Screenings: colonoscopy and pap smear Overdue care gaps: PHQ-9 and Disability screen documented in this encounter Plan of Treatment Not on file documented as of this encounter Visit Diagnoses Not on filedocumented in this encounter Additional Health Concerns Assessment Noted Time PHQ-9 Depression Total Score: 0 11/22/19 23 3:07 PM EDT documented as of this encounter Care Teams Dental Mechanic Relationship Specialty Start Date End Date Luz Marina Pearson MD [address] [place] [address] PCP - General Family Medicine 01/09/18 documented as of this encounter
--- OUTSIDE RECORDS SUMMARY | 2024-09-03 16:18 | XMS_ITS | Encounter Summary ---
Author Organization [employer] Address [address] [facility] [address]t [place] [address] Care Team Providers Care Bulkhead Carpenter Name Role Phone Luz Marina Pearson MD Primary Care Provide r Encounter Details Date Type Department Care Team (Late st Contact Info) Description 03/26/2023 Abstract [facility] MEDICINE [address] [place], [place] [phone] Mirtha Cortes Social History Tobacco Use Types [...] got money to buy more: Never True 02/14/2023 Within the past 12 months,th e food you bought just didn't last and you didn't have enough money to get more: Never True Transportation Answer Date Recorded In the past 12 months, has l ack of transportation kept you from medical appts, meetings, work or from getting things needed for daily living? No 02/14/2023 Utilities Answer Date Recorded In the past [...] Date/Time Associated Diagnosis Comments HM COLONOSCOPY Routine 03/21/2023 documented in this encounter Results * Hm Colonoscopy (03/21/2023) Colonoscopy Normal Normal Narrative SophiaMirtha john - 03/21/2023 Repeat Colonoscopy in 6-12 months or earlier if clinically indicated due to large polyp history Historical Provider HEALTH MAINTENANCE Final Result documented in this encounter Visit Diagnoses Not on filedocumented in this encounter Additional Health Concerns Assessment Noted Time PHQ-9 Depression Total Score: 0 11/22/19 23 3:07 PM EDT documented as of this encounter Care Teams Bulkhead Carpenter Relationship Specialty Start Date End Date Luz Marina Pearson MD [address] [place] [id number] PCP - General Family Medicine 01/09/18 documented as of this encounter
--- OUTSIDE RECORDS SUMMARY | 2024-09-03 16:18 | XMS_ITS | Encounter Summary ---
Author Organization [employer] Address [address] [place] [address] 7t [place] [address] Care Team Providers Care 1St Pressman Name Role Phone Luz Marina Pearson MD Primary Care Provide r Encounter Details Date Type Department Care Team (Late st Contact Info) Description 11/16/[address] [facility] MEDICINE [address] [place] [address] Luz Marina Pearson MD [address] [place] [address] Social History Tobacco Use Types Packs/Day Years Used Date Smoking Tobacco: Never Assessed Comments Unknown Sex and Gender Information Value Date Recorded Sex Assigned at Female 02/27/2022 10:18 AM EDT Legal Sex Female 10:18 AM EDT Gender Identity Female 02/27/2022 10:18 AM EDT Sexual Orientation Straight 02/27/2022 10 :18 AM EDT documented as of this encounter Plan of Treatment Not on file documented as of this encounter Procedures Procedure Name Priority Date/Time Associated Diagnosis Comments COLONOSCOPY Routine 10/04/2021 documented in this encounter Results * Colonoscopy (10/04/2021) Colonoscopy Normal Normal Narrative Mirtha Cortes - 10/04/2021 Recommended 8-12 month follow up due to large polyps ([facility]) Ramón Rossi MD HEALTH MAINTENANCE Final Result documented in this encounter Visit Diagnoses Not on filedocumented in this encounter Care Teams 1St Pressman Relationship Specialty Start Date End Date Luz Marina Pearson MD [address] [place] [address] PCP - General Family Medicine 01/09/18 documented as of this encounter
[2024-09-04 04:39] LABS: HIV AB/AG Nonreactive (Nonreactive); HIV Num 1 0.05 S/CO (0.00-0.99); ~HepC Num1 0.15 S/CO (0.00-0.79); ~Hepatitis C Antibody Nonreactive (Nonreactive)
== END 2024-09-03 15:25 | disposition home or self-care (01) ==
LOC: HO.HHCL 15:24
PROVIDERS: Visit Provider Family Medicine
DX: Z11.3 Encounter for screening for infections with a predominantly sexual mode of transmission (principal); Z11.4 Encounter for screening for human immunodeficiency virus [HIV]
CPT/HCPCS: 36415; 86803; 87389

== ENCOUNTER → 2024-10-07 13:02 | Outpatient (BNVA) | payer MEDICAID, SELFPAY | PROVIDERS: PCP Internal Medicine; Visit Provider Internal Medicine Gastroenterology ==

== ENCOUNTER 2024-12-11 14:08 | Outpatient (REF) | payer MEDICAID, SELFPAY ==
--- OUTSIDE RECORDS SUMMARY | 2024-12-11 14:58 | XMS_ITS | Encounter Summary ---
Author Organization [employer] Address [address] [facility] [address]t [place] [address] Care Team Providers Care Air Pollution Auditor Name Role Phone Luz Marina Pearson MD Primary Care Provide r Reason for Visit * Reason Onset Date Comments Tspot labs 12/11/2024 I informed the p atient, that an order for a Tspot was sent to the [facility] lab. The results are being requested by the [facility]. She verbalized understanding, and agreed to have them done. Encounter Details Date Type Department Care Team (Late st Contact Info) Description 12/11/2024 Telephone [facility] MEDICINE [address] [place] [address] Luz Marina Pearson MD [address] [place], [place] [phone] Tspot labs (I informed the patient, that an order for a Tspot was sent to the [facility] lab. The results are being requested by the [facility]. She verbalized understanding, and agreed to have them done.) Social History Tobacco Use Types Packs/Day Years [...] encounter Miscellaneous Notes * Telephone Encounter - Radha Saenz MA - 12/11/2024 10:41 AM EDT I informed the patient, that an order for a Tspot was sent to the [facility] lab. The results are being requested by the [facility]. She verbalized understanding, and agreed to have them done. documented in this encounter Plan of Treatment Upcoming Encounters Date Type Department Care Team (Late st Contact Info) Description 01/28/2025 9:00 AM EDT Office Visit [facility] OPTOMETRY [address] [place] [address] Glenn, Imani, OD [address] [place] [address] documented as of this encounter Visit Diagnoses Not on filedocumented in this encounter Additional Health Concerns Assessment Noted Time PHQ-9 Depression Total Score: 0 09/04/19 25 2:17 PM EDT documented as of this encounter Care Teams Air Pollution Auditor Relationship Specialty Start Date End Date Luz Marina Pearson MD [address] [place] [address] PCP - General Family Medicine 01/09/18 documented as of this encounter
--- OUTSIDE RECORDS SUMMARY | 2024-12-11 14:58 | XMS_ITS | Patient Health Record ---
Author Organization [facility] Address [address] [place] [address] Care Team Providers Care Sound Installation Worker Name Role Phone Adarsh Edwards Unavailable [phone] Reason For Referral No Information Plan Of Treatment No Information
[2024-12-14 19:13] LABS: TS Negative Control Passed; TS Panel A 2; TS Panel B 0; TS Positive Control Passed; TSpotTB Negative (Negative)
== END 2024-12-11 14:09 | disposition home or self-care (01) ==
LOC: HO.HHCL 14:08
PROVIDERS: PCP Internal Medicine; Visit Provider Internal Medicine
DX: Z11.1 Encounter for screening for respiratory tuberculosis (principal)
CPT/HCPCS: 36415; 86481

== ENCOUNTER 2025-02-25 14:22 | Outpatient (REF) | payer MEDICAID, SELFPAY ==
--- OUTSIDE RECORDS SUMMARY | 2025-02-23 10:45 | XMS_ITS | Encounter Summary ---
Author Organization [employer] Address [address] [place] [address] 7t [place] [address] Care Team Providers Care Welder Production Line Arc Name Role Phone Luz Marina Pearson MD Primary Care Provide r Encounter Details Date Type Department Care Team ([facility] st Contact Info) Description 02/23/2025 10:45 AM EDT Office Visit [facility] MEDICINE [address] [place], [place] [phone] Luz Marina Pearson MD [address] [place], [place] [phone] Hypoglycemia; Dysphagia, unspecified type; Encounter for immunization [...] hands . Verfied with nurse, Nadira at [facility]. Nadira confirms most of pt.'s report and [...] time daily Blood Glucose Monitoring Suppl (FreeStyle [place] Lite) w/Device kit; Use to test blood sugar 1 time daily Insulin; Future C-Peptide; Future Proinsulin; Future Beta-Hydroxybutyrate; Future SULFONYLUREA DRUG SCREEN; Future POC glucose 112 A1c 5.3 Dysphagia, unspecified type Pt reports difficulty swallowing fruit skins. Will investigate with barium swallow test. Encounter for immunization Orders: FLU VACCINE TRIVALENT [id number] (Fluarix) 19 yrs + Current Medications[2] No follow-ups on file. [facility] MOLDER HAND Attestation MOLDER HAND Resident Attestation: Patient was seen and evaluated by Malorie INGRAM , in collaboration with Luz Marina Pillai MD who has reviewed my assessment and plan. I, Luz Marina Pillai MD , have reviewed the resident's note and agree with the assessment &plan of care as documented above. Visit Conducted in: German Translation by: Provided by [facility] staff member Dr. Emigdio Pillai , [1] Allergies Allergen Reactions Crab Extract Other reaction(s): Anaphylaxis Ibuprofen Other Reaction(s): STOMACH ACHE Risperidone Other reaction(s): Hives / Skin Rash Seafood [Shellfish Allergy] Tramadol Other reaction(s): Nausea / Vomiting [2] Current Outpatient Medications: Alcohol Swabs 70 % pads, Use to test blood sugar 1 time daily, Disp: 100 each, Rfl: 0 Blood Glucose Monitoring Suppl (FreeStyle [place] Lite) w/Device kit, Use to test blood [...] Description 03/16/2025 1:30 PM EST Office Visit [facility] MEDICINE [address] [place] [phone] Luz Marina Pearson MD [address] [place] [phone] 04/21/2025 10:45 AM EST Telemedicine [address] [address] Luz Marina Pearson MD [address] [place] [phone] Scheduled Orders Name Type Priority Associated Diagnoses Orde r Schedule C-Peptide Lab Routine Hypoglycemia Expected: 02/23/2025 (Approximate), Expires: 02/23/2026 Proinsulin Lab Routine Hypoglycemia Expected: 02/23/2025 (Approximate), Expires: 02/23/2026 SULFONYLUREA DRUG SCREEN Lab Routine Hypoglycemia Expected: 02/23/2025 (Approximate), Expires: 02/23/2026 documented as of this encounter Procedures Procedure Name Priority Date/Time Associated Diagnosis Comments BETA-HYDROXYBUTYRAT E Routine 02/25/2025 2:30 PM EDT Hypoglycemia INSULIN Routine 02/25/2025 2:30 PM EDT Hypoglycemia POCT GLYCATED HEMOGLOBIN, TOTAL Routine 02/23/2025 10:52 AM EDT Hypoglycemia POCT GLUCOSE Routine 02/23/2025 10:52 AM EDT Hypoglycemia documented in this encounter Results * Beta-Hydroxybutyrate (02/25/2025 2:30 PM EDT) Beta-Hydroxybut yrate 0.06 0.02 - 0.27 mmol/L [facility] Blood Venous blood specimen / Unknown 02/25/2025 2:30 PM EDT 02/25/2025 3:54 PM EDT us Luz Marina Pillai MD LAB BLOOD ORDERABLES Final Result Performing Organization Address [facility] Co de Phone Number [facility] [address] [place] [phone] * Insulin (02/25/2025 2:30 PM EDT) Insulin 11 2 - 29 uU/mL [facility] Comment:This test was perfor med using [...] BLOOD ORDERABLES Final Result Performing Organization Address [facility]/ZIP Co de Phone Number [facility] [address] [place] [phone] * POCT Hgb A1c (02/23/2025 10:52 AM EDT) Hemoglobin A1C 5.3 4.0 - 5.7 % QC Media Lot # [id number] Lot# Expiration Date 51,227 Blood 02/23/2025 10:5 2 AM EDT Luz Marina Pillai MD POINT OF CARE TEST EN TER/EDIT ORDERABLES Final Result * POCT Glucose (02/23/2025 10:52 AM EDT) Glucose Blood, POC 112 60 - 200 mg/dL QC Media Lot # [id number] Lot# Expiration Date 31,126 Blood Capillary blood specimen / Unknown 02/23/2025 10:52 AM EDT Luz Marina Pillai MD POINT OF CARE TEST EN TER/EDIT ORDERABLES Final Result documented in this encounter Visit Diagnoses Diagnosis Hypoglycemia Hypoglycemia, unspecified Dysphagia, unspecified type Encounter for immunization documented in this encounter Additional Health Concerns Assessment Noted Time PHQ-9 Depression Total Score: 0 09/04/19 25 2:17 PM EDT documented as of this encounter Care Teams Welder Production Line Arc Relationship Specialty Start Date End Date Luz Marina Pearson MD [address] [place] [address] PCP - General Family Medicine 01/09/18 documented as of this encounter
--- OUTSIDE RECORDS SUMMARY | 2025-02-25 18:45 | XMS_ITS | Clinical Summary ---
Author Organization [employer] Address [address] [place] [address] 7t [place] [address] Care Team Providers Care Drier And Evaporator Operator Name Role Phone Luz Marina Pearson MD Primary Care Provide r Allergies Active Allergy Reactions Criticality Noted Date Comments Crab Extract High 08/02/2015 Other reaction(s): Anaphylaxis Ibuprofen 01/28/2024 Other Reaction(s): STOMACH ACHE Risperidone 03/16/2014 Other reaction(s): Hives / Skin Rash Shellfish Allergy 04/10/2024 Tramadol 03/16/2014 Other reaction(s): Nausea / Vomiting Medications cholecalciferol (Vitamin D-3) 25 MCG (1000 UT) tabletIndicatio ns:Vitamin D deficiency Take 1 tablet (25 mcg) by mouth Once per day. 60 tablet 1 5 Active Diclofenac Sodium (Voltaren) 1 % gel Use topical BID 100 g 3 5 Active Ketotifen Fumarate 0.035 % solutionIndicat ions:Seasonal allergies Administer 1 drop into affected eye(s) if needed in the morning and at bedtime (eye redness, itching). 10 mL 5 Active fluticasone (Flonase) 50 MCG/ACT nasal sprayIndication s:Seasonal allergies Administer 1 spray into each nostril 2 times daily. Shake gently. Before first use, prime pump. After use, clean tip and replace cap. 16 g 1 5 08/29/19 26 Active cetirizine (ZyrTEC) 10 MG tabletIndicatio ns:Seasonal allergies TAKE 1 TABLET BY MOUTH ONCE DAILY NEEDED 90 tablet 5 Active FREESTYLE LITE test stripIndication s:Hypoglycemia Use to test blood once a day 100 each 12 5 02/24/20 26 Active Lancets miscIndications :Hypoglycemia Use to test blood sugar once a day 100 each 5 Active Alcohol Swabs 70 % padsIndications :Hypoglycemia Use to test blood sugar 1 time daily 100 each 5 Active Blood Glucose Monitoring Suppl (FreeStyle Seminary Lite) w/Device kitIndications: Hypoglycemia Use to test blood sugar 1 time daily 1 kit Active baclofen (Lioresal) 10 MG tabletIndicatio ns:Chronic midline low back pain, unspecified whether sciatica present,Fibromy algia Take 1 tablet (10 mg) by mouth 3 times daily. 90 tablet 4 02/12/20 25 Discontin ued(Thera py completed ) famotidine (Pepcid) 20 MG tabletIndicatio ns:Chronic midline low back pain, unspecified whether sciatica present Take 1 tablet (20 mg) by mouth 2 times daily. 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 02/23/2025 Cervical radiculopathy 02/23/2025 Chronic sinusitis 02/23/2025 Dysplasia of cervix, low grade (BETH 1) Epigastric pain 02/23/2025 GERD (gastroesophageal reflux disease) H/O LEEP 02/23/2025 Overview (02/23/2025): 2019 for persistent BETH 1 Lumbar radicular pain 02/23/2025 Migraine 02/23/2025 Pre-op examination 02/23/2025 Skin candidiasis 02/23/2025 Overview (02/23/2025): Of bilateral inguinal area Tubular adenoma of colon 02/23/2025 Overview (02/23/2025): One large TA 02/2023 insufficient prep repeat in 1 year; 2 very large TA's 09/2021 repeat 6-12 months ASCUS with positive high risk HPV cervical 02/23 Breast cancer screening by mammogram 09/03/2024 Overview [...] 2:56 PM EST): 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 by obstetrics gynecology md Assessment & Plan (04/20/2023 3:07 PM EST): 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 with [employer]ES [employer] Encounter for preventative adult health care exa [...] AM EDT): Apply heat on affected area [place] of gabapentin and baclofen Referral to pain management Allergic rhinitis 11/16/2022 Vitamin D deficiency 03/14/2012 Overview (09/03/2024): Lab Results Component Value Date [id number] 27.2 (L) 05/08/2024 - continue cholecalciferol (Vitamin D-3) 25 MCG (1000 UT) tablet Assessment & Plan (09/03/2024 2:04 PM EDT): Lab Results Component Value Date [id number] 27.2 (L) 05/08/2024 - continue cholecalciferol (Vitamin D-3) 25 MCG (1000 UT) tablet Osteoporosis 03/14/2012 Encounters Date Type Department Care Team Description 02/25/2025 Travel 02/23/2025 10:45 AM EDT Office Visit [facility] [address] [place] [address] Luz Marina Pearson MD Hypoglycemia; Dysphagia, unspecified type; Encounter for immunization 02/23/2025 Travel 02/20/[address] [facility] [address] [place] [address] Luz Marina Pearson MD Chart Prep 02/19/2025 Travel 02/18/[address] [facility] [address] [place] [address] Luz Marina Pearson MD Nurse Triage 01/28/2025 9:00 AM EDT Office Visit [facility] [address] [place] [address] Glenn, Imani, OD Presbyopia (Primary Dx); Dry eyes; Early cataracts, bilateral 01/28/2025 Travel 01/21/2025 Travel 01/06/[address] [facility] [address] [place] [address] Luz Marina Pearson MD NOV RECALL 12/11/[address] [facility] [address] [place] [address] Luz Marina Pearson MD Tspot labs (I informed the patient, that an order for a Tspot was sent to the [facility] lab. The results are being requested by the [facility]. She verbalized understanding, and agreed to have them done.) 12/11/[address] [facility] [address] [place] [address] Luz Marina Pearson MD Lab Orders 11/28/2024 Telephone [facility] [address] [place] [address] Shoshana Gregory LPN from Last 3 Months Immunizations Immunization Administration Dates Next Due Hep B, adult 04/21/2021,02/21/2018,01/22/2018 Influenza Injectable Quadriv alant Preservative Free IIV4 MDCK 02/07/2023 Influenza injectable quadriv alent IIV4 with preservative 01/29/2018,06/14/2017,02/26/2015 Influenza injectable quadriv alent preservative free 02/15/2021 Influenza, IIV3, injectable 01/16/2014 Influenza, Split (incl. gustavo fied surface antigen) 03/14/2012 Influenza, seasonal, injecta ble, preservative free 02/23/2025,04/10/2024 Pneumococcal Conjugate PCV 20 09/03/2024 Tdap 04/10/2024,10/05/2011 [...] Q2 Not on file 04/03/2024 Comments Unknown Intention Date Recorded No desire to become (finding) 0 09/03/2024 Sex and Gender Information Value Date Recorded [...] Mass Index 28.29 02/23/2025 10:43 AM EDT Plan of Treatment Upcoming Encounters Date Type Department Care Team (Late st Contact Info) Description 03/16/2025 1:30 PM EST Office Visit [facility] [address] [place] [address] [phone] Luz Marina Pearson MD [address] [place] [address] 04/21/2025 10:[address] [facility] [address] [place] [address] Luz Marina Pearson MD [address] [place] [address] Health Maintenance Due Date Last Done Comments CT Colonography 1971 FIT DNA/Cologuard 1971 FIT 1971 FOBT 1970 Sigmoidoscopy 1970 Disability Screening 1971 COVID-19 Vaccine ( season) 2024 Mammogram 02/20/2025 02/21/2024, 07/30, 08/22/2022, Additional history exists Colonoscopy 03/12/2025 03/12/2024, 03/01, 10/04/2021 Colorectal Cancer Screening 03/12/2025 Cervical Cancer Screening 03/25/2025 HPV/Cotest 03/25/2025 09/13/2021, 08/28, 09/07/2020, Additional history exists Pap Smear 03/25/2025 01/28/2024, 11/27/2022 Alcohol/Substance Use Screening 04/10/2025 04/10/2024 SDOH Screening 08/25/2025 08/25/2024 Depression Screening 09/03/2025 09/03/2024, 09/04/19 Tobacco Screening 02/23/2026 02/23/2025 DTaP/Tdap/Td Vaccines (3 - Td or Tdap) 04/10/2034 04/10/2024, 10/05/2011 RSV Patients and Patients Aged 60 years or older (1 - 1-dose 75+ series) 11/12/2046 Hepatitis B Vaccines Completed 04/21/2021, 02/21/2018, 01/22/2018 Zoster Vaccines Completed 02/07/2023, 12/06/2022 Family Planning (PISQ) Discontinued 09/03/2024 HIV Screening Completed 09/03/2024 Hepatitis C Screening Completed 09/03/2024 Pneumococcal Vaccine: 50+ Years Completed 09/03/2024 Influenza Vaccine Completed 02/23/2025, , 02/07/2023, Additional history exists HIB Vaccines Aged Out No longer eligi [...] patient's age to complete this topic Meningococcal B Vaccine Aged Out No l onger eligible based on patient's age to complete [...] Procedure Name Priority Date/Time Associated Diagnosis Comments BETA-HYDROXYBUTYRATE Routine 02/25/2025 2:30 PM EDT Hypoglycemia INSULIN Routine 02/25/2025 2:30 PM EDT Hypoglycemia POCT GLYCATED HEMOGLOBIN, TOTAL Routine 02/23/2025 10:52 AM EDT Hypoglycemia POCT GLUCOSE Routine 02/23/2025 10:52 AM EDT Hypoglycemia T-SPOT(R).TB Routine 12/11/2024 2:13 PM EDT Encounter for screening for respiratory tuberculosis HEPATITIS C AB W/REFL TO HCV RNA, QN, PCR Routine 09/03/2024 3:26 PM EDT Routine screening for STI (sexually transmitted infection) HIV 1/2 ANTIGEN/ANTIBODY, FOURTH GENERATION W/RFL Routine 09/03/2024 3:26 PM EDT Routine screening for STI (sexually transmitted infection) HM COLONOSCOPY Routine 03/12/2024 2:16 PM EST BI MAMMOGRAM SCREENING TOMOSYNTHESIS BILATERAL Routine 02/21/2024 2:22 PM EDT HM PAP/HPV Routine 01/28/2024 2:09 PM EDT ZZZ HISTORICAL HPV E6/E7 RFLX LILIAN 16 18/45 Routine 09/13/2021 2:27 PM EDT from Last 3 Months or Most Recently Relevant to Health Maintenance Results * Beta-Hydroxybutyrate (02/25/2025 2:30 PM EDT) Pathologist [facility] Beta-Hydroxybut yrate 0.06 0.02 - 0.27 mmol/L [facility] Blood Venous blood specimen / Unknown 02/25/2025 2:30 PM EDT 02/25/2025 3:54 PM EDT us Luz Marina Pillai MD LAB BLOOD ORDERABLES Final Result [facility] [address] [place] [phone] * Insulin (02/25/2025 2:30 PM EDT) Pathologist [facility] Insulin 11 2 - 29 uU/mL [facility] Comment:This test was perfor med [...] 2:30 PM EDT 02/25/2025 3:54 PM EDT Luz Marina Pillai MD LAB BLOOD ORDERABLES Final Result [facility] [address] [place] [phone] * POCT Hgb A1c (02/23/2025 10:52 AM EDT) [facility] Hemoglobin A1C 5.3 4.0 - 5.7 % QC Media Lot # [id number] Lot# Expiration Date 51,227 Blood 02/23/2025 10:5 2 AM EDT Result [facility] Luz Marina Pillai MD POINT OF CARE TEST EN TER/EDIT ORDERABLES Final Result * POCT Glucose (02/23/2025 10:52 AM EDT) [facility] Glucose Blood, POC 112 60 - 200 mg/dL QC Media Lot # [id number] Lot# Expiration Date 31,126 Blood Capillary blood specimen / Unknown 02/23/2025 10:52 AM EDT Luz Marina Pillai MD POINT OF CARE TEST EN TER/EDIT ORDERABLES Final Result * T-SPOT??.TB (12/11/2024 2:13 PM EDT) Pathologist [facility] T Spot TB Negative Negative [facility] Comment:A negative test resu lt does not exclude the possibilityof exposure to or infection with Mycobacteriumtuberculosis (M. tuberculosis). Patients with recentexposure to TB infected individuals exhibiting anegative T-SPOT.TB result should be considered forretesting within 6 weeks or if other relevant clinicalsymptoms indicate. Results from T-SPOT.TB testing mustbe used in conjunction with each individual'sepidemiological history, current medical status,and results of other diagnostic evaluations.The T-SPOT.TB test is qualitative and results arereported as positive, borderline, or negative, giventhat the test controls perform as expected. In linewith the Centers for Disease Control and Prevention's2010 recommendation to report quantitative measurementsalongside the qualitative result, the laboratoryprovides spot counts for informational purposes only.The T-SPOT.TB test should not be interpreted as aquantitative test. TS PANEL A 2 [facility] TS PANEL B 0 [facility] Negative Control Passed [facility] Positive Control Passed [facility] Comment:For additional infor natasha, please refer tohttp://education.[employer]/faq/ERO549(This link is being provided for informational/educational purposes only.)REPORT COMMENT:REC'D AT [facility] TEST WAS PERFORMED AT:[employer] [id number] [place] [address]VDVUGQAJERMAINE PURVIS MD,PHD 12/11/2024 2:13 PM EDT 12/11/2024 4:28 PM EDT Luz Marina Pillai MD LAB BLOOD ORDERABLES Final Result [facility] [address] [place] [phone] * Hepatitis C Antibody with Reflex to HCV, RNA, Quantitative, Real-Time PCR (09/03/2024 3:26 PM EDT) Hepatitis C Antibody Nonreactive Nonreactive [facility] Comment:Antibodies to HCV no t detected; does not exclude early acuteHCV infection. Blood Venous blood specimen / Unknown 09/03/2024 3:26 PM EDT 09/03/2024 4:13 PM EDT Fay Patel MD LAB BLOOD ORDERABLES Final Result Performing Organization Address City/[facility]/ZIP Co de Phone Number [facility] [address] [place] [phone] * HIV-1/2 Antigen and Antibodies, Fourth Generation, with Reflexes (09/03/2024 3:26 PM EDT) HIV AB/AG Nonreactive Nonreactive [facility] Comment:HIV-1 p24 Ag and/or HIV-1/HIV-2 Ab not detected.A test result that is nonreactive does not exclude thepossibility of exposure to or infection with HIV-1 and/orHIV-2. Nonreactive results in this assay for individualswith prior exposure to HIV-1 and/or HIV-2 may be due toantigen and antibody levels that are below the limit ofdetection of this assay.The [employer] HIV Ag/Ab Combo assay result andsupplemental assay results should be interpreted inconjunction with the patient's clinical presentation,history and other laboratory results. If the results areinconsistent with clinical evidence, additional testing issuggested to confirm the result. Blood Venous blood specimen / Unknown 09/03/2024 3:26 PM EDT 09/03/2024 4:13 PM EDT Fay Patel MD LAB BLOOD ORDERABLES Final Result Performing Organization Address City/[facility]/ZIP Co de Phone Number [facility] [address] [place] [phone] * Hm Colonoscopy (03/12/2024 2:16 PM EST) Sergio Gruber MD HEALTH MAINTENANCE Final Result * BI Mammogram Screening Tomosynthesis Bilateral (02/21/2024 2:22 PM EDT) Anatomical Region Laterality Modality Breast Bilateral Mammography 02/21/2024 2:22 PM EDT Narrative 03/03/2024 4:19 PM EST [address] [place] [address] Mammography Report Signed Patient: Marie Lockwood MR#: [id number] : 1970 Acct:[id number] Age/Sex: 53 / F ADM Date: 02/21/24 Loc: HO.MAMMO Attending Dr: Yayo Ron MD Ordering Physician: Yayo Ron MD Results: 1Negativ e Date of Service: 02/21/24 Follow Up: 1 Year From Orig inal Mammogram Procedure(s): MM tomosynthesis screening BI Accession Number(s): [id number] cc: Luz Marina Pearson MD; Yayo Ron [...] DO 03/03/2024 04:16 PM [facility] Dictated By: Comfort Simons DO Signed By: <Electronically signed by Comfort Simons DO in OV> 03/03/24 1616 DD/ 1422 TD/TT: 02/21/24 1438 Application Integration Specialist: Procedure Note Donotuseinterpreter, Image - 03/03/[address] [place] [address] Mammography Report Signed Patient: Marie LockwoodMR#: [id number] : 1970Acct:[id number] Age/Sex: 53 / FADM Date: 02/21/24 Loc: HO.MAMMO Attending Dr: Yayo Ron MD Ordering Physician: Yayo Ron MDResults: 1Negativ e Date of Service: 02/21/24Follow Up: 1 Year From [facility] ina Mammogram Procedure(s): MM tomosynthesis screening BI Accession Number(s): [id number] cc: Luz Marina Pearson MD; Yayo Ron [...] DO 03/03/2024 04:16 PM [facility] Dictated By: Comfort Simons DO Signed By: <Electronically signed by Comfort Simons DO in OV> 03/03/24 1616 DD/ 1422 TD/TT: 02/21/24 1438 Application Integration Specialist: [facility] External Provider IMG BI PROCEDURES Edited Result - Final * HM PAP/HPV (01/28/2024 2:09 PM EDT) Historical Provider HEALTH MAINTENANCE Final Result * (ABNORMAL) HPV E6/E7 RFLX LILIAN 16 18/45 (09/13/2021 2:27 PM EDT) HPV 16 RNA NOT DETECTED NOT DETECTED [facility] HPV 18/45 RNA NOT DETECTED NOT DETECTED [facility] Comment: Methodology: Kitchen Supervisor Mediated Amplification The analytical performance characteristics of this assay have been determined by [employer]. The modifications have not been cleared or approved by the FDA. This assay has been validated pursuant to the CLIA regulations and is used for clinical purposes. THIS TEST WAS PERFORMED AT: [facility] [address] [place] [address],[facility] [place] [address] ALYSIA FLOYD MD HPV mRNA E6/E7 rflx Detected(A) Not Detected [facility] Comment: Methodology: Kitchen Supervisor-Mediated Amplification This assay detects E6/E7 viral messenger RNA (mRNA) from 14 high-risk HPV types (16,18,31,33,35,39,45,51,52,56,58,59,66,68). The analytical performance characteristics of this assay have been determined by [employer]. The modifications have not been cleared or approved by the FDA. This assay has been validated pursuant to the CLIA regulations and is used for clinical purposes. For additional information, please refer to http://education.[employer]/faq/GMJ648p7 (This link if provided for information/ educational purposes only.) THIS TEST WAS PERFORMED AT: [facility] [address],[place] [address] ALYSIA FLOYD MD 09/13/2021 2:27 PM EDT us Latisha Dumont HISTORICAL/NON ORDERABLE LABS Fi nal Result [facility] [address] from Last 3 Months or Most Recently Relevant to Health Maintenance Insurance STANDARD Care Teams Drier And Evaporator Operator Relationship Specialty Start Date End Date Luz Marina Pearson MD [address] [place] [phone] PCP - General Family Medicine 01/09/18
--- OUTSIDE RECORDS SUMMARY | 2025-02-25 18:45 | XMS_ITS | Encounter Summary ---
Author Organization [employer] Address [address] [facility] 7t [place] [address] Care Team Providers Care Machine Gun Mechanic Name Role Phone Luz Marina Pearson MD Primary Care Provide r Encounter Details Date Type Department Care Team (Latest Contact Info) Description 02/25/2025 Travel Social History Tobacco Use Types Packs/Day [...] as of this encounter Plan of Treatment Upcoming Encounters Date Type Department Care Team (Late st Contact Info) Description 03/16/2025 1:30 PM EST Office Visit [facility] [address] [place] [phone] Luz Marina Pearson MD [address] [place] [phone] 04/21/2025 10:45 AM EST Telemedicine [address] [phone] Luz Marina Pearson MD [address] [place] [phone] documented as of this encounter Visit Diagnoses Not on filedocumented in this encounter Additional Health Concerns Assessment Noted Time PHQ-9 Depression Total Score: 0 09/04/19 25 2:17 PM EDT documented as of this encounter Care Teams Machine Gun Mechanic Relationship Specialty Start Date End Date Luz Marina Pearson MD [address] [place] [phone] PCP - General Family Medicine 01/09/18 documented as of this encounter
--- OUTSIDE RECORDS SUMMARY | 2025-02-25 18:45 | XMS_ITS | Encounter Summary ---
Author Organization [employer] Address [address] [place] [address] 7 [place] [address] Care Team Providers Care Editor Trade Journal Name Role Phone Luz Marina Pearson MD Primary Care Provide r Encounter Details Date Type Department Care Team (Late st Contact Info) Description 11/16/[address] [phone] Luz Marina Pearson MD [address] [place] [address] [phone] Social History Tobacco Use Types Packs/Day Years [...] Description 03/16/2025 1:30 PM EST Office Visit [facility] [address] [place] [address] [phone] Luz Marina Pearson MD [address] [place] [address] [phone] 04/21/2025 10:45 AM EST Telemedicine [address] [phone] Luz Marina Pearson MD [address] [place] [address] [phone] documented as of this encounter Procedures Procedure Name Priority Date/Time Associated Diagnosis Comments COLONOSCOPY Routine 10/04/2021 documented in this encounter Results * Colonoscopy (10/04/2021) Colonoscopy Normal Normal Narrative Mirtha Cortes - 10/04/2021 Recommended 8-12 month follow up due to large polyps ([facility]) Ramón Rossi MD HEALTH MAINTENANCE Final Result documented in this encounter Visit Diagnoses Not on filedocumented in this encounter Care Teams Editor Trade Journal Relationship Specialty Start Date End Date Luz Marina Pearson MD [address] [place] [phone] PCP - General Family Medicine 01/09/18 documented as of this encounter
--- OUTSIDE RECORDS SUMMARY | 2025-02-25 18:45 | XMS_ITS | Encounter Summary ---
Author Organization [employer] Address [address] [facility] 7t [place] [address] Care Team Providers Care Job Lithographer Name Role Phone Luz Marina Pearson MD Primary Care Provide r Encounter Details Date Type Department Care Team (Latest Contact Info) Description 02/23/2025 Travel Social History Tobacco Use Types Packs/Day [...] Description 03/16/2025 1:30 PM EST Office Visit [facility] [address] [place] [phone] Luz Marina Pearson MD [address] [place] [phone] 04/21/2025 10:45 AM EST Telemedicine [address] [phone] Luz Marina Pearson MD [address] [place] [phone] documented as of this encounter Visit Diagnoses Not on filedocumented in this encounter Additional Health Concerns Assessment Noted Time PHQ-9 Depression Total Score: 0 09/04/19 25 2:17 PM EDT documented as of this encounter Care Teams Job Lithographer Relationship Specialty Start Date End Date Luz Marina Pearson MD [address] [place] [phone] PCP - General Family Medicine 01/09/18 documented as of this encounter
--- OUTSIDE RECORDS SUMMARY | 2025-02-25 18:45 | XMS_ITS | Encounter Summary ---
Author Organization [employer] Address [address] [facility] 7t [place] [address] Care Team Providers Care Decorative Greens Cutter Name Role Phone Luz Marina Pearson MD Primary Care Provide r Encounter Details Date Type Department Care Team (Late st Contact Info) Description 03/26/2023 Abstract [facility] [address] [place], [place] [phone] Mirtha Cortes Social History Tobacco Use Types [...] Description 03/16/2025 1:30 PM EST Office Visit [address] [phone] Luz Marina Pearson MD [address] [place] [address] [phone] 04/21/2025 10:45 AM EST Telemedicine [address] [phone] Luz Marina Pearson MD [address] [place] [address] [phone] documented as of this encounter Procedures Procedure Name Priority Date/Time Associated Diagnosis Comments COLONOSCOPY Routine 03/21/2023 documented in this encounter Results * Colonoscopy (03/21/2023) Colonoscopy Normal Normal Narrative Mirtha Cortes - 03/21/2023 Repeat Colonoscopy in 6-12 months or earlier if clinically indicated due to large polyp history Historical Provider HEALTH MAINTENANCE Final Result documented in this encounter Visit Diagnoses Not on filedocumented in this encounter Additional Health Concerns Assessment Noted Time PHQ-9 Depression Total Score: 0 11/22/19 23 3:07 PM EDT documented as of this encounter Care Teams Decorative Greens Cutter Relationship Specialty Start Date End Date Luz Marina Pearson MD [address] [place] [address] [phone] PCP - General Family Medicine 01/09/18 documented as of this encounter
--- OUTSIDE RECORDS SUMMARY | 2025-02-25 18:45 | XMS_ITS | Encounter Summary ---
Author Organization [employer] Address [address] [place] [address] 7t [place] [address] Care Team Providers Care Bisque Kiln Drawer Name Role Phone Luz Marina Pearson MD Primary Care Provide r Reason for Visit * Reason Onset Date Comments Chart Prep 02/20/2025 Encounter Details Date Type Department Care Team ([facility] st Contact Info) Description 02/20/2025 Telephone [facility]INE [address] [place], [place] [phone] Luz Marina Pearson MD [address] [place], [place] [phone] Chart Prep Social History Tobacco Use Types Packs/Day Years [...] encounter Miscellaneous Notes * Telephone Encounter - Sara Guillen [place] - 02/20/2025 2:36 PM EDT Chart Prep Labs: done Images: not applicable Referrals: not applicable Vaccines due: Covid and Flu Screenings: colonoscopy, mammogram, and pap smear Overdue care gaps: A1c, Glucose, PHQ-9, PEMA-7, and Disability screen documented in this encounter Plan of Treatment Upcoming Encounters Date Type Department Care Team (Late st Contact Info) Description 03/16/2025 1:30 PM EST Office Visit [facility] [address] [place] [phone] Luz Marina Pearson MD [address] [place] [phone] 04/21/2025 10:45 AM EST Telemedicine [facility] [address] [place] [phone] Luz Marina Pearson MD [address] [place] [phone] documented as of this encounter Visit Diagnoses Not on filedocumented in this encounter Additional Health Concerns Assessment Noted Time PHQ-9 Depression Total Score: 0 09/04/19 25 2:17 PM EDT documented as of this encounter Care Teams Bisque Kiln Drawer Relationship Specialty Start Date End Date Luz Marina Pearson MD [address] [place] [address] PCP - General Family Medicine 01/09/18 documented as of this encounter
--- OUTSIDE RECORDS SUMMARY | 2025-02-25 18:45 | XMS_ITS | Encounter Summary ---
Author Organization [employer] Address [address] [place] [address] 7t [place] [address] Care Team Providers Care Shredder Tender Name Role Phone Luz Marina Pearson MD Primary Care Provide r Encounter Details Date Type Department Care Team (Late Contact Info) Description 02/01/2023 Abstract [facility] MED[facility]INE [address] [place] [address] [phone] Mirtha Cortes Social History Tobacco Use Types [...] Description 03/16/2025 1:30 PM EST Office Visit [facility] [address] [place] [address] [phone] Luz Marina Pearson MD [address] [place] [address] [phone] 04/21/2025 10:45 AM EST Telemedicine [facility] [address] [place] [address] [phone] Luz Marina Pearson MD [address] [place] [address] documented as of this encounter Visit Diagnoses Not on filedocumented in this encounter Additional Health Concerns Assessment Noted Time PHQ-9 Depression Total Score: 0 11/22/19 23 3:07 PM EDT documented as of this encounter Care Teams Shredder Tender Relationship Specialty Start Date End Date Luz Marina Pearson MD [address] [place] [address] PCP - General Family Medicine 01/09/18 documented as of this encounter
--- OUTSIDE RECORDS SUMMARY | 2025-02-25 18:46 | XMS_ITS | Patient Health Record ---
Author Organization [facility] Address [address] [place] [address] Care Team Providers Care Datastage Developer Name Role Phone Adarsh Edwards Unavailable [phone] Reason For Referral No Information Plan Of Treatment No Information
--- OUTSIDE RECORDS SUMMARY | 2025-02-25 18:46 | XMS_ITS | Encounter Summary ---
Author Organization [employer] Address [address] [facility] 7t [place] [address] Care Team Providers Care President And Chief Executive Officer Name Role Phone Luz Marina Pearson MD Primary Care Provide r Encounter Details Date Type Department Care Team (Late st Contact Info) Description 06/04/2024 Telephone [facility] MEDICINE [address] [place], [place] [phone] Luz Marina Pearson MD [address] [place], [place] [phone] Social History Tobacco Use Types Packs/Day Years [...] Description 03/16/2025 1:30 PM EST Office Visit [facility] MEDICINE [address] [place] [phone] Luz Marina Pearson MD [address] [place] [phone] 04/21/2025 10:45 AM EST Telemedicine [facility] MEDICINE [address] [place] [phone] Luz Marina Pearson MD [address] [place] [address] [phone] documented as of this encounter Visit Diagnoses Not on filedocumented in this encounter Additional Health Concerns Assessment Noted Time PHQ-9 Depression Total Score: 0 11/22/19 23 3:07 PM EDT documented as of this encounter Care Teams President And Chief Executive Officer Relationship Specialty Start Date End Date Luz Marina Pearson MD [address] [place] [address] [phone] PCP - General Family Medicine 01/09/18 documented as of this encounter
--- OUTSIDE RECORDS SUMMARY | 2025-02-25 18:46 | XMS_ITS | Encounter Summary ---
Author Organization [employer] Address [address] [facility] 7t [place] [address] Care Team Providers Care Continuity Director Name Role Phone Luz Marina Pearson MD Primary Care Provide r Encounter Details Date Type Department Care Team (Late st Contact Info) Description 09/03/2024 Orders Only [facility] [address] [place], [place] [phone] Provider, MD Sergio Social History Tobacco Use [...] AM EDT documented as of this encounter Functional Status * Over the past 2 weeks, how often have you been bothered by any of the following problems? Question Answer Date of Assessment Author Patient Health Questionnaire-2 Score 0 10/2024 2:17 PM EDT Shazia Rodríguez MA * Little interest or pleasure in doing things Answer Date of Assessment Author Not at all 09/03/2024 2:17 PM Moshe Moreno MA * Feeling down, depressed, or hopeless Answer Date of Assessment Author Not at all 09/03/2024 2:17 PM Moshe Moreno MA * Trouble falling or staying asleep, or sleeping too much Answer Date of Assessment Author Not at all 09/03/2024 2:17 PM Moshe Moreno MA * Feeling tired or having little energy Answer Date of Assessment Author Not at all 09/03/2024 2:17 PM CARIT Moshe Rodríguez MA * Poor appetite or overeating Answer Date of Assessment Author Not at all 09/03/2024 2:17 PM EDT Moshe Rodríguez MA * Feeling bad about yourself - or that you are a failure or have let yourself or your family down Answer Date of Assessment Author Not at all 09/03/2024 2:17 PM Moshe Moreno MA * Trouble concentrating on things, such as reading the newspaper or watching television Answer Date of Assessment Author Not at all 09/03/2024 2:17 PM Moshe Moreno MA * Moving or speaking so slowly that other people could have noticed? Or the opposite - being so fidgety or restless that you have been moving around a lot more than usual. Answer Date of Assessment Author Not at all 09/03/2024 2:17 PM EDT Moshe Rodríguez MA * Thoughts that you would be better off or hurting yourself in some way Answer Date of Assessment Author Not at all 09/03/2024 2:17 PM EDT Moshe Rodríguez MA * Patient Health Questionnaire-9 Score Answer Date of Assessment Author 0 09/03/2024 2:17 PM EDT Moshe Rodríguez MA documented as of this encounter Plan of Treatment Upcoming Encounters Date Type Department Care Team (Late st Contact Info) Description 03/16/2025 1:30 PM EST Office Visit [facility] MEDICINE [address] [place] [phone] Luz Marina Pearson MD [address] [place] [phone] 04/21/2025 10:45 AM EST Telemedicine [facility]INE [address] [place] [phone] Luz Marina Pearson MD [address] [place] [phone] documented as of this encounter Procedures Procedure Name Priority Date/Time Associated Diagnosis Comments COLPOSCOPY Routine 03/25/2024 2:14 PM EST HM COLONOSCOPY Routine 03/12/2024 2:16 PM EST HM PAP/HPV Routine 01/28/2024 2:09 PM EDT documented in this encounter Results * Colposcopy (03/25/2024 2:14 PM EST) Historical Provider IN CLINIC/BEDSIDE ORDERAB LES Final Result * Hm Colonoscopy (03/12/2024 2:16 PM EST) us Historical Provider HEALTH MAINTENANCE Final Result * HM PAP/HPV (01/28/2024 2:09 PM EDT) us Historical Provider HEALTH MAINTENANCE Final Result documented in this encounter Visit Diagnoses Not on filedocumented in this encounter Additional Health Concerns Assessment Noted Time PHQ-9 Depression Total Score: 0 09/04/19 25 2:17 PM EDT documented as of this encounter Care Teams Continuity Director Relationship Specialty Start Date End Date Luz Marina Pearson MD [address] [place] [address] PCP - General Family Medicine 01/09/18 documented as of this encounter
== END 2025-02-25 14:23 | disposition home or self-care (01) ==
LOC: HO.HHCL 14:22
PROVIDERS: PCP Internal Medicine; Visit Provider Internal Medicine
DX: E16.2 Hypoglycemia, unspecified (principal)
CPT/HCPCS: 36415; 82010; 83525; 84206; 84681

== ENCOUNTER 2025-02-26 14:11 | Outpatient (REF) | payer MEDICAID, SELFPAY ==
--- OUTSIDE RECORDS SUMMARY | 2025-02-23 10:45 | XMS_ITS | Encounter Summary ---
Author Organization [employer] Address [address] [place] [address] 7t [place] [address] Care Team Providers Care E Mail System Administrator Name Role Phone Luz Marina Pearson MD Primary Care Provide r Encounter Details Date Type Department Care Team ([facility] st Contact Info) Description 02/23/2025 10:45 AM EDT Office Visit [facility] MEDICINE [address] [place], [place] [phone] Luz Marina Pearson MD [address] [place], [place] [phone] Hypoglycemia; Dysphagia, unspecified type; Encounter for immunization Social History Tobacco Use Types Packs/Day Years [...] Sign Reading Time Taken Comments Blood Pressure 116/78 02/23/2025 10:43 AM EDT Pulse 83 02/23/2025 10:43 AM EDT Temperature 36.2 C (97.2 F) 02/23/2025 10:43 AM EDT Respiratory Rate 24 02/23/2025 10:4 3 AM EDT Oxygen Saturation 97% 02/23/2025 10: 43 AM EDT Inhaled Oxygen Concentration - - Weight 74.8 kg (164 lb 12.8 oz) 025 10:43 AM EDT Height 162.6 cm (5' 4 ) 02/23/2025 10:4 3 AM EDT Body Mass Index 28.29 02/23/2025 10:43 AM EDT documented in this encounter Progress Notes * Luz Marina Pillai MD - 02/23/2025 10:45 AM EDT Marie Lockwood is a 54 y.o. female who presents for a acute visit. HPI From Nurse triage note: Reports x2 episodes in the past 3 weeks, of experiencing shakiness, heart racing, tingling in hands . Verfied with nurse, Nadira at [facility]. Nadira confirms most of pt.'s report and states the blood sugar readings from the two episodes were 81 and 75. However Nadira states these episodes both occurred BEFORE lunch, and that pt. Was also c/o headache during these episodes. Today patient states she felt her hands tremble, her body felt weak, and she felt flushed and had had palpitations (Whipple???s triad). The nurse checked her blood sugar and told her it was low (in the 40s). Her BP was normal at that time. It has happened at home and at the center 2x. This has happened once per month in the past, now it is weekly. She also reports difficulty swallowing solids. Specifically fruit skins like grapes and plums. 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 Chronic low back pain Allergic rhinitis Encounter for preventative adult health care examination Fibromyalgia Abnormal Pap smear of cervix Wound of skin Breast cancer screening by mammogram Abnormal colonoscopy Dietary counseling Exercise counseling Overweight Colon cancer screening Well woman exam Osteopenia Acute pain of right shoulder Cervical low risk human papillomavirus (HPV) DNA test positive Cervical radiculopathy Chronic sinusitis Dysplasia of cervix, low grade (BETH 1) Epigastric pain GERD (gastroesophageal reflux disease) H/O LEEP Lumbar radicular pain Migraine Pre-op examination Skin candidiasis Tubular adenoma of colon ASCUS with positive high risk HPV cervical Allergies[1] Review of Systems Constitutional: Negative for diaphoresis, fatigue and unexpected weight change. HENT: Negative. Respiratory: Negative. Negative for cough and shortness of breath. Cardiovascular: Negative. Gastrointestinal: Negative. Vitals: 02/23/25 1043 BP: 116/78 BP Location: Left arm Patient Position: Sitting BP Cuff Size: Adult Pulse: 83 Resp: 24 Temp: 97.2 ??F (36.2 ??C) TempSrc: Temporal SpO2: 97% Weight: 164 lb 12.8 oz (74.8 kg) Height: 5' 4 (1.626 m) Physical Exam Constitutional: Appearance: Normal appearance. Pulmonary: Effort: Pulmonary effort is normal. Breath sounds: Normal breath sounds. Neurological: General: No focal deficit present. Mental Status: She is alert. Psychiatric: Mood and Affect: Mood normal. Behavior: Behavior normal. Assessment & Plan Hypoglycemia Pt reports increasing episodes of hypoglycemic symptoms which resolve after eating. Will check labs today and order glucometer. The patient is instructed to check blood sugars in the morning before breakfast and also whenever she experiences symptoms. Also advised to eat small frequent meals throughout the day that are low in sugar and high in protein and fiber. Examples include beans, meat, cheese, and nuts. Vegetables are preferred over fruit, which should be consumed in moderation. F/u 4 weeks with glucose log Orders: POCT Glucose POCT Hgb A1c FREESTYLE LITE test strip; Use to test blood once a day Lancets misc; Use to test blood sugar once a day Alcohol Swabs 70 % pads; Use to test blood sugar 1 time daily Blood Glucose Monitoring Suppl (FreeStyle [place] Lite) w/Device kit; Use to test blood sugar 1 time daily Insulin; Future C-Peptide; Future Proinsulin; Future Beta-Hydroxybutyrate; Future SULFONYLUREA DRUG SCREEN; Future POC glucose 112 A1c 5.3 Dysphagia, unspecified type Pt reports difficulty swallowing fruit skins. Will investigate with barium swallow test. Encounter for immunization Orders: FLU VACCINE TRIVALENT [id number] (Fluarix) 19 yrs + Current Medications[2] No follow-ups on file. [facility] ACTING INSTRUCTOR Attestation ACTING INSTRUCTOR Resident Attestation: Patient was seen and evaluated by Malorie INGRAM , in collaboration with Luz Marina Pillai MD who has reviewed my assessment and plan. I, Luz Marina Pillai MD , have reviewed the resident's note and agree with the assessment &plan of care as documented above. Visit Conducted in: Barbadian Translation by: Provided by [facility] staff member Dr. Emigdio Pillai , [1] Allergies Allergen Reactions Crab Extract Other reaction(s): Anaphylaxis Ibuprofen Other Reaction(s): STOMACH ACHE Risperidone Other reaction(s): Hives / Skin Rash Seafood [Shellfish Allergy] Tramadol Other reaction(s): Nausea / Vomiting [2] Current Outpatient Medications: Alcohol Swabs 70 % pads, Use to test blood sugar 1 time daily, Disp: 100 each, Rfl: 0 Blood Glucose Monitoring Suppl (FreeStyle [place] Lite) w/Device kit, Use to test blood sugar 1 time daily, Disp: 1 kit, Rfl: 0 cetirizine (ZyrTEC) 10 MG tablet, TAKE 1 TABLET BY MOUTH ONCE DAILY NEEDED, Disp: 90 tablet, Rfl: 0 cholecalciferol (Vitamin D-3) 25 MCG (1000 UT) tablet, Take 1 tablet (25 mcg) by mouth Once per day., Disp: 60 tablet, Rfl: 1 Diclofenac Sodium (Voltaren) 1 % gel, Use topical BID, Disp: 100 g, Rfl: 3 fluticasone (Flonase) 50 MCG/ACT nasal spray, Administer 1 spray into each nostril 2 times daily. Shake gently. Before first use, prime pump. After use, clean tip and replace cap., Disp: 16 g, Rfl: 1 FREESTYLE LITE test strip, Use to test blood once a day, Disp: 100 each, Rfl: 12 Ketotifen Fumarate 0.035 % solution, Administer 1 drop into affected eye(s) if needed in the morning and at bedtime (eye redness, itching)., Disp: 10 mL, Rfl: 0 Lancets misc, Use to test blood sugar once a day, Disp: 100 each, Rfl: 0 documented in this encounter Plan of Treatment Upcoming Encounters Date Type Department Care Team (Late st Contact Info) Description 03/16/2025 1:30 PM EST Office Visit [facility] MEDICINE [address] [place] [phone] Luz Marina Pearson MD [address] [place] [phone] 04/21/2025 10:45 AM EST Telemedicine [address] [address] Luz Marina Pearson MD [address] [place] [phone] Pending Results Name Type Priority Associated Diagnoses Date /Time C-Peptide Lab Routine Hypoglycemia 02/25/2025 2:30 PM EDT Scheduled Orders Name Type Priority Associated Diagnoses Orde r Schedule Proinsulin Lab Routine Hypoglycemia Expected: 02/23/2025 (Approximate), Expires: 02/23/2026 SULFONYLUREA DRUG SCREEN Lab Routine Hypoglycemia Expected: 02/23/2025 (Approximate), Expires: 02/23/2026 documented as of this encounter Procedures Procedure Name Priority Date/Time Associated Diagnosis Comments BETA-HYDROXYBUTYRAT E Routine 02/25/2025 2:30 PM EDT Hypoglycemia INSULIN Routine 02/25/2025 2:30 PM EDT Hypoglycemia C-PEPTIDE Routine 02/25/2025 2:30 PM EDT Hypoglycemia POCT GLYCATED HEMOGLOBIN, TOTAL Routine 02/23/2025 10:52 AM EDT Hypoglycemia POCT GLUCOSE Routine 02/23/2025 10:52 AM EDT Hypoglycemia documented in this encounter Results * Beta-Hydroxybutyrate (02/25/2025 2:30 PM EDT) Beta-Hydroxybut yrate 0.06 0.02 - 0.27 mmol/L [facility] Blood Venous blood specimen / Unknown 02/25/2025 2:30 PM EDT 02/25/2025 3:54 PM EDT us Luz Marina Pillai MD LAB BLOOD ORDERABLES Final Result Performing Organization Address [facility]/ZIP Co de Phone Number [facility] [address] [place], [place] [phone] * Insulin (02/25/2025 2:30 PM EDT) Pathologist [facility] Insulin 11 2 - 29 uU/mL [facility] Comment:This test was perfor med using the Real chemiluminescentmethod. Values obtained from different assay methods cannot beused interchangeably. This insulin assay shows a possiblecross-reactivity with antibodies generated against insulin(immunoreactive insulin and some patients treated withbovine or porcine insulin). Insulin levels may be measuredlower in patients with insulin autoimmune syndrome orfamilial high pro-insulinemia. Blood Venous blood specimen / Unknown 02/25/2025 2:30 PM EDT 02/25/2025 3:54 PM EDT us Luz Marina Pillai MD LAB BLOOD ORDERABLES Final Result [facility] [address] [place] [address] [phone] * POCT Hgb A1c (02/23/2025 10:52 AM EDT) Hemoglobin A1C 5.3 4.0 - 5.7 % QC Media Lot # [id number] Lot# Expiration Date 51,227 Blood 02/23/2025 10:5 2 AM EDT us Luz Marina Pillai MD POINT OF CARE TEST EN TER/EDIT ORDERABLES Final Result * POCT Glucose (02/23/2025 10:52 AM EDT) Glucose Blood, POC 112 60 - 200 mg/dL QC Media Lot # [id number] Lot# Expiration Date 31,126 Blood Capillary blood specimen / Unknown 02/23/2025 10:52 AM EDT us Luz Marina Pillai MD POINT OF CARE TEST EN TER/EDIT ORDERABLES Final Result documented in this encounter Visit Diagnoses Diagnosis Hypoglycemia Hypoglycemia, unspecified Dysphagia, unspecified type Encounter for immunization documented in this encounter Additional Health Concerns Assessment Noted Time PHQ-9 Depression Total Score: 0 09/04/19 25 2:17 PM EDT documented as of this encounter Care Teams E Mail System Administrator Relationship Specialty Start Date End Date Luz Marina Pearson MD [address] [place] [phone] PCP - General Family Medicine 01/09/18 documented as of this encounter
--- OUTSIDE RECORDS SUMMARY | 2025-02-25 13:30 | XMS_ITS | Encounter Summary ---
Author Organization [employer] Address [address] [facility] 7t [place] [address] Care Team Providers Care Lead Caster Name Role Phone Luz Marina Pearson MD Primary Care Provide r Encounter Details Date Type Department Care Team (Late st Contact Info) Description 02/25/2025 1:30 PM EDT Office Visit [facility] OPTOMETRY [address] [place] [address] Glenn, Imani, OD [address] [place] [address] Presbyopia (Primary Dx) Social History Tobacco Use Types Packs/Day Years [...] AM EDT documented as of this encounter Progress Notes * Imani Elizabeth OD - 02/25/2025 1:30 PM EDT MH glasses were dispensed. documented in this encounter Plan of Treatment Upcoming Encounters Date Type Department Care Team (Late st Contact Info) Description 03/16/2025 1:30 PM EST Office Visit [facility] MEDICINE [address] [place] [phone] Luz Marina Pearson MD [address] [place] [phone] 04/21/2025 10:45 AM EST Telemedicine [facility] MEDICINE [address] [place] [phone] Luz Marina Pearson MD [address] [place] [phone] documented as of this encounter Visit Diagnoses Diagnosis Presbyopia- Primary documented in this encounter Additional Health Concerns Assessment Noted Time PHQ-9 Depression Total Score: 0 09/04/19 25 2:17 PM EDT documented as of this encounter Care Teams Lead Caster Relationship Specialty Start Date End Date Luz Marina Paerson MD [address] [place] [address] PCP - General Family Medicine 01/09/18 documented as of this encounter
--- OUTSIDE RECORDS SUMMARY | 2025-02-26 17:15 | XMS_ITS | Encounter Summary ---
Author Organization [employer] Address [address] [facility] 7t [place] [address] Care Team Providers Care Dairy Store Manager Name Role Phone Luz Marina Pearson [...] Description 03/16/2025 1:30 PM EST Office Visit [facility] MEDICINE [address] [place] [phone] Luz Marina Pearson MD [address] [place] [phone] 04/21/2025 10:45 AM EST Telemedicine [address] [phone] Luz Marina Pearson MD [address] [place] [phone] documented as of this encounter Visit Diagnoses Not on filedocumented in this encounter Additional Health Concerns Assessment Noted Time PHQ-9 Depression Total Score: 0 09/04/19 25 2:17 PM EDT documented as of this encounter Care Teams Dairy Store Manager Relationship Specialty Start Date End Date Luz Marina Pearson MD [address] [place] [phone] PCP - General Family Medicine 01/09/18 documented as of this encounter
--- OUTSIDE RECORDS SUMMARY | 2025-02-26 17:15 | XMS_ITS | Encounter Summary ---
Author Organization [employer] Address [address] [place] [address] 7 [place] [address] Care Team Providers Care Devops Name Role Phone Luz Marina Pearson MD Primary Care Provide r Encounter Details Date Type Department Care Team (Late st Contact Info) Description 11/16/[address] [phone] Luz Marina Pearson MD [address] [place] [address] [phone] Social History Tobacco Use Types Packs/Day Years [...] Description 03/16/2025 1:30 PM EST Office Visit [facility] MEDICINE [address] [place] [address] [phone] Luz Marina Pearson MD [address] [place] [address] [phone] 04/21/2025 10:45 AM EST Telemedicine [address] [phone] Luz Marina Pearson MD [address] [place] [address] [phone] documented as of this encounter Procedures Procedure Name Priority Date/Time Associated Diagnosis Comments COLONOSCOPY Routine 10/04/2021 documented in this encounter Results * Colonoscopy (10/04/2021) Colonoscopy Normal Normal Narrative Mirtha Cortes - 10/04/2021 Recommended 8-12 month follow up due to large polyps ([facility]) Ramón Rossi MD HEALTH MAINTENANCE Final Result documented in this encounter Visit Diagnoses Not on filedocumented in this encounter Care Teams Devops Relationship Specialty Start Date End Date Luz Marina Pearson MD [address] [place] [phone] PCP - General Family Medicine 01/09/18 documented as of this encounter
--- OUTSIDE RECORDS SUMMARY | 2025-02-26 17:15 | XMS_ITS | Encounter Summary ---
Author Organization [employer] Address [address] [facility] 7t [place] [address] Care Team Providers Care Spout Tender Name Role Phone Luz Marina Pearson [...] Description 03/16/2025 1:30 PM EST Office Visit [facility] MEDICINE [address] [place] [phone] Luz Marina Pearson MD [address] [place] [phone] 04/21/2025 10:45 AM EST Telemedicine [address] [address] Luz Marina Pearson MD [address] [place] [phone] documented as of this encounter Visit Diagnoses Not on filedocumented in this encounter Additional Health Concerns Assessment Noted Time PHQ-9 Depression Total Score: 0 09/04/19 25 2:17 PM EDT documented as of this encounter Care Teams Spout Tender Relationship Specialty Start Date End Date Luz Marina Pearson MD [address] [place] [phone] PCP - General Family Medicine 01/09/18 documented as of this encounter
--- OUTSIDE RECORDS SUMMARY | 2025-02-26 17:15 | XMS_ITS | Patient Health Record ---
Author Organization [facility] Address [address] [place] [address] Care Team Providers Care Palliative Medicine Physician Name Role Phone Adarsh Edwards Unavailable [phone] Reason For Referral No Information Plan Of Treatment No Information
--- OUTSIDE RECORDS SUMMARY | 2025-02-26 17:15 | XMS_ITS | Encounter Summary ---
Author Organization [employer] Address [address] [place] [address] 7t [place] [address] Care Team Providers Care Circular Knitter Name Role Phone Luz Marina Pearson MD Primary Care Provide r Encounter Details Date Type Department Care Team (Late Contact Info) Description 02/01/2023 Abstract [facility] MEDICINE [address] [place] [address] [phone] Mirtha Cortes Social History Tobacco Use Types [...] Description 03/16/2025 1:30 PM EST Office Visit [facility] MEDICINE [address] [place] [address] [phone] Luz Marina Pearson MD [address] [place] [address] [phone] 04/21/2025 10:45 AM EST Telemedicine [facility] MEDICINE [address] [place] [address] [phone] Luz Marina Pearson MD [address] [place] [address] documented as of this encounter Visit Diagnoses Not on filedocumented in this encounter Additional Health Concerns Assessment Noted Time PHQ-9 Depression Total Score: 0 11/22/19 23 3:07 PM EDT documented as of this encounter Care Teams Circular Knitter Relationship Specialty Start Date End Date Luz Marina Pearson MD [address] [place] [address] PCP - General Family Medicine 01/09/18 documented as of this encounter
--- OUTSIDE RECORDS SUMMARY | 2025-02-26 17:15 | XMS_ITS | Encounter Summary ---
Author Organization [employer] Address [address] [facility] 7t [place] [address] Care Team Providers Care Hydrographic Surveyor Name Role Phone Luz Marina Pearson MD Primary Care Provide r Encounter Details Date Type Department Care Team (Late st Contact Info) Description 03/26/2023 Abstract [facility] MEDICINE [address] [place], [place] [phone] Mirtha Cortes Social History Tobacco Use Types [...] Description 03/16/2025 1:30 PM EST Office Visit [address] [phone] Luz Marina Pearson MD [address] [place] [address] [phone] 04/21/2025 10:45 AM EST Telemedicine [address] [phone] Luz Marina Pearson MD [address] [place] [address] [phone] documented as of this encounter Procedures Procedure [...] documented as of this encounter Care Teams Hydrographic Surveyor Relationship Specialty Start Date End Date Luz Marina Pearson MD [address] [place] [address] [phone] PCP - General Family Medicine 01/09/18 documented as of this encounter
--- OUTSIDE RECORDS SUMMARY | 2025-02-26 17:15 | XMS_ITS | Clinical Summary ---
Author Organization [employer] Address [address] [place] [address] 7t [place] [address] Care Team Providers Care Rag Sorter And Cutter Name Role Phone Luz Marina Pearson [...] 5 Active Blood Glucose Monitoring Suppl (FreeStyle [place] Lite) w/Device kitIndications: Hypoglycemia Use to test [...] 2:56 PM EST): 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 by operational trainer Assessment & Plan (04/20/2023 3:07 PM EST): 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 with CROSSTIE INSPECTOR Encounter for preventative adult health care exa [...] AM EDT): Apply heat on affected area [place] of gabapentin and baclofen Referral to pain management Allergic rhinitis 11/16/2022 Vitamin D deficiency 03/14/2012 Overview (09/03/2024): Lab Results Component Value Date [id number] 27.2 (L) 05/08/2024 - continue cholecalciferol (Vitamin D-3) 25 MCG (1000 UT) tablet Assessment & Plan (09/03/2024 2:04 PM EDT): Lab Results Component Value Date [id number] 27.2 (L) 05/08/2024 - continue cholecalciferol (Vitamin D-3) 25 MCG (1000 UT) tablet Osteoporosis 03/14/2012 Encounters Date Type Department Care Team Description 02/25/2025 1:30 PM EDT Office Visit [facility] [address] [place], [place] [phone] Glenn, Imani, OD Presbyopia (Primary Dx) 02/25/2025 Travel 02/23/2025 10:45 AM EDT Office Visit [facility] [address] [place] [address] Luz Marina Pearson MD Hypoglycemia; Dysphagia, unspecified type; Encounter for immunization 02/23/2025 Travel 02/20/2025 Telephone [facility] [address] [place] [address] Luz Marina Pearson MD Chart Prep 02/19/2025 Travel 02/18/2025 Telephone [facility] [address] [place] [address] Luz Marina Pearson MD Nurse Triage 01/28/2025 9:00 AM EDT Office Visit [facility] [address] [place] [address] Glenn, Imani, OD Presbyopia (Primary Dx); Dry eyes; Early cataracts, bilateral 01/28/2025 Travel 01/21/2025 Travel 01/06/2025 Telephone [facility] [address] [place], [place] [phone] Luz Marina Peasron MD NOV RECALL 12/11/[address] [address] Luz Marina Pearson MD Tspot labs (I informed the patient, that an order for a Tspot was sent to the [facility] lab. The results are being requested by the [facility]. She verbalized understanding, and agreed to have them done.) 12/11/2024 Telephone [facility] [address] [place] [address] Luz Marina Pearson MD Lab Orders 11/28/[address] [address] Shoshana Gregory LPN from Last 3 Months Immunizations Immunization Administration Dates Next Due Hep B, adult 04/21/2021,02/21/2018,01/22/2018 Influenza Injectable Quadriv alant Preservative Free IIV4 MDCK 02/07/2023 Influenza injectable quadriv alent IIV4 with preservative 01/29/2018,06/14/2017,02/26/2015 Influenza injectable quadriv alent preservative free 02/15/2021 Influenza, IIV3, injectable 01/16/2014 Influenza, Split (incl. ugstavo fied surface antigen) 03/14/2012 Influenza, seasonal, injecta [...] Description 03/16/2025 1:30 PM EST Office Visit [facility] [address] [place] [phone] Luz Marina Pearson MD [address] [place] [phone] 04/21/2025 10:45 AM EST Telemedicine [address] [address] Luz Marina Pearson MD [address] [place] [phone] Health Maintenance Due Date Last Done Comments [...] BETA-HYDROXYBUTYRATE Routine 02/25/2025 2:30 PM EDT Hypoglycemia C-PEPTIDE Routine 02/25/2025 2:30 PM EDT Hypoglycemia INSULIN [...] Beta-Hydroxybut yrate 0.06 0.02 - 0.27 mmol/L [facility] Blood Venous blood specimen / Unknown 02/25/2025 2:30 PM EDT 02/25/2025 3:54 PM EDT us Luz Marina Pillai MD LAB BLOOD ORDERABLES Final Result [facility] [address] [place] [phone] * Insulin (02/25/2025 2:30 PM EDT) Insulin 11 2 - 29 uU/mL [facility] Comment:This test was perfor med using [...] 2:30 PM EDT 02/25/2025 3:54 PM EDT Result Nirav Pillai MD LAB BLOOD ORDERABLES Final Result [facility] [address] [place] [phone] * POCT Hgb A1c (02/23/2025 10:52 [...] specimen / Unknown 02/23/2025 10:52 AM EDT Result Nirav Pillai MD POINT OF CARE TEST EN TER/EDIT ORDERABLES Final Result * T-SPOT??.TB (12/11/2024 2:13 PM EDT) Pathologist [facility] T Spot TB Negative Negative [facility] Comment:A negative test resu lt does [...] as aquantitative test. TS PANEL A 2 [facility] TS PANEL B 0 [facility] Negative Control Passed [facility] Positive Control Passed [facility] Comment:For additional infor mation, please refer tohttp://education.Savorfull/faq/QSJ211(This link is being provided for informational/educational purposes only.)REPORT COMMENT:REC'D AT [facility] TEST WAS PERFORMED AT:[id number] [place] [address]ZMZAVBLJERMAINE PURVIS MD,PHD 12/11/2024 2:13 PM EDT 12/11/2024 4:28 PM EDT us Luz Marina Pillai MD LAB BLOOD ORDERABLES Final Result [facility] [address] [place] [phone] * Hepatitis C Antibody with Reflex to HCV, RNA, Quantitative, Real-Time PCR (09/03/2024 3:26 PM EDT) [facility] Hepatitis C Antibody Nonreactive Nonreactive [facility] Comment:Antibodies to HCV no t detected; does not exclude early acuteHCV infection. Blood Venous blood specimen / Unknown 09/03/2024 3:26 PM EDT 09/03/2024 4:13 PM EDT Fay Patel MD LAB BLOOD ORDERABLES Final Result Performing Organization Address City/[facility]/ZIP Co de Phone Number [facility] [address] [place] [address] [phone] * HIV-1/2 Antigen and Antibodies, Fourth Generation, with Reflexes (09/03/2024 3:26 PM EDT) [facility] HIV AB/AG Nonreactive Nonreactive [facility] Comment:HIV-1 p24 Ag and/or HIV-1/HIV-2 Ab not detected.A test result that is nonreactive does not exclude thepossibility of exposure to or infection with HIV-1 and/orHIV-2. Nonreactive results in this assay for individualswith prior exposure to HIV-1 and/or HIV-2 may be due toantigen and antibody levels that are below the limit ofdetection of this assay.The [place] HIV Ag/Ab Combo assay result andsupplemental assay results should be interpreted inconjunction with the patient's clinical presentation,history and other laboratory results. If the results areinconsistent with clinical evidence, additional testing issuggested to confirm the result. Blood Venous blood specimen / Unknown 09/03/2024 3:26 PM EDT 09/03/2024 4:13 PM EDT Fay Patel MD LAB BLOOD ORDERABLES Final Result Performing Organization Address [facility]/ZIP Co de Phone Number [facility] [address] [place] [address] [phone] * Hm Colonoscopy (03/12/2024 2:16 PM EST) Historical Provider HEALTH MAINTENANCE Final Result * BI Mammogram Screening Tomosynthesis Bilateral (02/21/2024 2:22 PM EDT) Anatomical Region Laterality Modality Breast Bilateral Mammography 02/21/2024 2:22 PM EDT Narrative 03/03/2024 4:19 PM EST [facility] [address] [place] [address] Mammography Report Signed Patient: Marie Lockwood MR#: [id number] : 1970 Acct:[id number] Age/Sex: 53 / F ADM Date: 02/21/24 Loc: HO.MAMMO Attending Dr: Yayo Ron MD Ordering Physician: Yayo Ron MD Results: 1Negativ e Date of Service: 02/21/24 Follow Up: 1 Year From Orig inal Mammogram Procedure(s): MM tomosynthesis screening BI Accession Number(s): [id number] cc: Luz Marina Pearson MD; Yayo Ron [...] by: Comfort Simons DO 03/03/2024 04:16 PM EST Dictated By: Comfort Simons DO Signed By: <Electronically signed by Comfort Simons DO in OV> 03/03/24 1616 DD/ 1422 TD/TT: 02/21/24 1438 Sample Examiner: Procedure Note Donotuseinterpreter, Image - 03/03/2024 [facility] [address] [place], [place] [address] Mammography Report Signed Patient: Marie LockwoodMR#: [id number] : 1970Acct:[id number] Age/Sex: 53 / FADM Date: 02/21/24 Loc: HO.MAMMO Attending Dr: Yayo Ron MD Ordering Physician: Yayo Ron MDResults: 1Negativ e Date of Service: 02/21/24Follow Up: 1 Year From Orig inal Mammogram Procedure(s): MM tomosynthesis screening BI Accession Number(s): [id number] cc: Luz Marina Pearson MD; Yayo Ron [...] by: Comfort Simons DO 03/03/2024 04:16 PM EST Dictated By: Comfort Simons DO Signed By: <Electronically signed by Comfort Simons DO in OV> 03/03/24 1616 DD/ 1422 TD/TT: 02/21/24 1438 Sample Examiner: [facility] External Provider IMG BI PROCEDURES Edited Result - Final * HM PAP/HPV (01/28/2024 2:09 PM EDT) us Historical Provider HEALTH MAINTENANCE Final Result * (ABNORMAL) HPV E6/E7 RFLX LILIAN 16 18/45 (09/13/2021 2:27 PM EDT) HPV 16 RNA NOT DETECTED NOT DETECTED [facility] HPV 18/45 RNA NOT DETECTED NOT DETECTED [facility] Comment: Methodology: Patient Monitor Mediated Amplification The analytical performance characteristics of this assay have been determined by [employer]. The modifications have not been cleared or approved by the FDA. This assay has been validated pursuant to the CLIA regulations and is used for clinical purposes. THIS TEST WAS PERFORMED AT: [employer] [facility] [address] [place] [phone] ALYSIA FLOYD MD HPV mRNA E6/E7 rflx Detected(A) Not Detected [facility] Comment: Methodology: Patient Monitor-Mediated Amplification This assay detects E6/E7 viral messenger RNA (mRNA) from 14 high-risk HPV types (16,18,31,33,35,39,45,51,52,56,58,59,66,68). The analytical performance characteristics of this assay have been determined by [employer]. The modifications have not been cleared or approved by the FDA. This assay has been validated pursuant to the CLIA regulations and is used for clinical purposes. For additional information, please refer to http://education.eyetok.The Daily Caller/faq/ANI218d1 (This link if provided for information/ educational purposes only.) THIS TEST WAS PERFORMED AT: [employer] [facility] [address] [place] [address],[facility] [place] [address] ALYSIA FLOYD MD 09/13/2021 2:27 PM EDT us Latisha Dumont HISTORICAL/NON ORDERABLE LABS Fi nal Result [facility] [address] from Last 3 Months or Most Recently Relevant to Health Maintenance Insurance [facility] STANDARD Care Teams Rag Sorter And Cutter Relationship Specialty Start Date End Date Luz Marina Pearson MD [address] [place] [phone] PCP - General Family Medicine 01/09/18
--- OUTSIDE RECORDS SUMMARY | 2025-02-26 17:15 | XMS_ITS | Encounter Summary ---
Author Organization [employer] Address [address] [facility] 7[address] [place] [address] Care Team Providers Care Hat And Cap Parts Cutter Hand Name Role Phone Luz Marina Pearson MD Primary Care Provide r Encounter Details Date Type Department Care Team (Late st Contact Info) Description 06/04/2024 Telephone [facility] [address] [place], [place] [phone] Luz Marina Pearson MD [address] [place], [place] [phone] Social History Tobacco Use Types Packs/Day Years [...] 1:30 PM EST Office Visit [facility] [address] [place] [phone] Luz Marina Pearson MD [address] [place] [phone] 04/21/2025 10:45 AM EST Telemedicine [facility] [address] [place] [phone] Luz Marina Pearson MD [address] [place] [phone] documented as of this encounter Visit Diagnoses Not on filedocumented in this encounter Additional Health Concerns Assessment Noted Time PHQ-9 Depression Total Score: 0 11/22/19 23 3:07 PM EDT documented as of this encounter Care Teams Hat And Cap Parts Cutter Hand Relationship Specialty Start Date End Date Luz Marina Pearson MD [address] [place] [phone] PCP - General Family Medicine 01/09/18 documented as of this encounter
--- OUTSIDE RECORDS SUMMARY | 2025-02-26 17:15 | XMS_ITS | Encounter Summary ---
Author Organization [employer] Address [address] [facility] 7t [place] [address] Care Team Providers Care Management Recruiter Name Role Phone Luz Marina Pearson MD Primary Care Provide r Encounter Details Date Type Department Care Team (Late st Contact Info) Description 09/03/2024 Orders Only [facility] [address] [place], [place] [phone] Provider, MD Sergio Social History Tobacco Use [...] Office Visit [facility] [address] [place] [phone] Luz Marina Pearson MD [address] [place] [address] 04/21/2025 10:45 AM EST Telemedicine [facility] [address] [place] [phone] Luz Marina Pearson MD [address] [place] [phone] documented as of this encounter Procedures Procedure [...] documented as of this encounter Care Teams Management Recruiter Relationship Specialty Start Date End Date Luz Marina Pearson MD [address] [place] [address] PCP - General Family Medicine 01/09/18 documented as of this encounter
== END 2025-02-26 14:12 | disposition home or self-care (01) ==
LOC: HO.MAMMO 14:11
PROVIDERS: PCP Internal Medicine; Visit Provider Internal Medicine
DX: Z12.31 Encounter for screening mammogram for malignant neoplasm of breast (principal)
CPT/HCPCS: 77063; 77067

== ENCOUNTER → 2025-02-26 14:15 | Outpatient (BNV) | payer MEDICAID, SELFPAY | PROVIDERS: PCP Internal Medicine; Visit Provider Radiology Body Imaging | DX: Z12.31 Encounter for screening mammogram for malignant neoplasm of breast (principal) | CPT/HCPCS: 77063; 77067 ==

== ENCOUNTER 2025-03-12 08:41 | Outpatient (AMB) | payer MEDICAID, SELFPAY ==
--- NOTE | 2025-03-12 08:58 | A.OFFVIS_ITS ---
Vital Signs 3 03/12/25 08:59 Height 5 ft 4 in Weight 153 lb BMI 26.3 BP 102/72 Blood Pressure Location Rt brachial Position Sitting Pulse 68 Pulse Source Pulse Oximeter Pulse Oximetry (%) 98 Oxygen Delivery Method Room Air Intake Visit Reasons: 1 year repeat colonoscopy Intake Note: Est pt for mgmt of GERD + recall colo screening. CC: Pt denies any GI sx or concerns at this time. Intravenous Therapy Nurse Required: Yes Intravenous Therapy Nurse Services: Intravenous Therapy Nurse Present Intravenous Therapy Nurse Name: [facility] - Provider only Information Interpreted: clinical only Accompanied by: Self / Same As Patient Allergies risperidone Allergy (Intermediate, Verified 03/12/25 08:58) HIVES ibuprofen (From MOTRIN) Allergy (Unknown, Verified 03/12/25 08:58) STOMACH ACHE tramadol (TRAMADOL) Adverse Reaction (Intermediate, Verified 03/12/25 08:58) GI PAIN shrimp and clams Allergy (Severe, Uncoded 03/12/25 08:58) Anaphylaxis Medication List - Last Reconciled 03/12/25 by IVANNA Basilio calcium carbonate (Antacid Calcium) 215 mg PO TID cholecalciferol (vitamin D3) 10 mcg PO DAILY cyclobenzaprine 10 mg PO TID PRN epinephrine IM DIRECTED famotidine (Pepcid) 40 mg PO BEDTIME fluticasone propionate 50 mcg/actuation 1 spray intranasal BID lidocaine 5% 1 patch topical DAILY TENS units As directed triamcinolone acetonide 2 sprays intranasal DAILY HPI HPI 1 year repeat colonoscopy : Details: Assessment & Plan (1) Tubular adenoma of colon: Comment: One large TA 02/2023 insufficient prep repeat in 1 year; 2 very large TA's 09/2021 repeat 6-12 months Code(s): D12.6 - Benign neoplasm of colon, unspecified (2) GERD (gastroesophageal reflux disease): Code(s): K21.9 - Gastro-esophageal reflux disease without esophagitis Plan Yi #[id number] Saji She only drank 1/2 of the prep I didn't like it. This was PEG prep. We will try a different prep next time, she has Medicaid PCC, so heidi give a sample of Clenpiq. With this she is agreeable to a 1 year follow-up. The procedure was well tolerated. The results were explained and the patient is agreeable to the follow-up interval as stated. The bowel pattern has returned to normal. Education was provided to tell any 1st degree relatives about their findings to be sure that they are screened by age 45. Educated that they will be put on a recall list when it is time for their repeat scope but should they move out of state or away from the hospital they will need to remember along with their primary to repeat the procedure in a timely fashion to avoid any adverse complications. She continues on her famotidine bid with good control of her GERD. There are no prior problems with anesthesia or sedation. She denies any respiratory or cardiac problems. No ID problems. There is no known FHX or crc or polyps. But she had a very large TA and poor prep on her 02/2023 scope. This will be repeated in 1 year. Orders: Orders Colonoscopy - GI Use Only Today D12.6 - Benign neoplasm of colon, unspecified Medications: Refilled famotidine (Pepcid) 40 mg PO BEDTIME 30 tabs 6RF K21.9 - Gastro-esophageal reflux disease without esophagitis LABS: Laboratory Tests 05/08/24 12:06 WBC 7.5 Hgb 13.8 Hct 41.6 Plt Count 316 Total Bilirubin 1.2 H AST 20 ALT 12 Alkaline Phosphatase 107 TODAY'S VISIT KYRGYZ #Wilma New unexplained hypoglycemia. [facility] Medical History (Updated 03/12/25 @ 09:42 by IVANNA Basilio) History of sepsis Bowel perforation Colon cancer screening Dysplasia of cervix, low grade (BETH 1) Chronic sinusitis Migraine Vitamin D deficiency Osteopenia Surgical History (Updated 03/12/25 @ 09:42 by IVANNA Basilio) H/O laparoscopy H/O parotidectomy Hx of colonoscopy History of cholecystectomy H/O LEEP Hx of tonsillectomy Hx of abdominal hysterectomy Hx of section Family History Father No problems noted. 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 Female Reproductive History Menstrual Age of Menarche: 14 Review of Systems Const Denies fatigue, Denies fever(s), Denies night sweats, Denies poor appetite and Denies weight loss Eyes Details: Glasses Reports requires corrective lenses ENT Reports Normal hearing present, Reports dysphagia, Denies odynophagia, Denies throat swelling and Denies tongue swelling Card Reports no additional complaints Resp Reports no additional complaints GI Details: Denies abdominal pain, Denies melena, Denies bloating, Denies hematochezia, Denies constipation, Denies GI cramping, Reports dysphagia, Denies excessive flatus, Denies early satiety, Reports heartburn, Denies diarrhea, Denies nausea, Denies odynophagia, Denies vomiting and Denies hematemesis Musc Reports back pain and Reports myalgias Skin/Breast Denies pruritus, Denies lesions, Denies rash and Denies jaundice Neuro Reports Normal hearing present and Denies Abnormal speech present Endo Denies fatigue Aller/Immun Denies throat swelling and Denies tongue swelling Physical Exam Vital Signs: Last Vital Signs Pulse 68 03/12/25 08:59 BP 102/72 03/12/25 08:59 Pulse Ox 98 03/12/25 08:59 Oxygen Delivery Method Room Air 03/12/25 08:59 BMI result Body Mass Index 26.3 Const General: cooperative, no acute distress, well developed and well groomed Nutritional Appearance: average body habitus and well nourished Orientation/consciousness: oriented to person, oriented to place and oriented to time Limitations: language barrier HEENT Head: Yes normocephalic and Yes atraumatic Eyes General: appearance normal, both eyes and all related structures Pupils: Equal, round and reactive pupils present Neck Neck: Yes normal visual inspection and Yes no lymphadenopathy Thyroid: Thyroid normal Resp Effort & Inspection: normal respiratory effort and able to speak in complete sentences Auscultation: clear to auscultation bilaterally Cardio Rate: regular rate Rhythm: regular rhythm Heart sounds: Normal, physiologic split S2 sound present Peripheral pulses: radial pulses present and posterior tibial pulses present GI Inspection: No distended, No Abdominal panniculus present and Yes obesity Palpation (GI): Soft to palpation, nontender, no guarding, not rigid and No hepatosplenomegaly present Percussion: Yes normal to percussion Auscultation: normal bowel sounds Rectal Exam - Female: deferred Abdomen image: 2 1. surgical scar Skin General skin exam: no rashes or lesions noted, turgor normal, skin not dry, no jaundice, No spider nevi and no striae Rashes: no rashes Nails: normal Neuro General: oriented to person, oriented to place and oriented to time Cranial nerves: Yes Equal, round and reactive pupils present and Yes Normal hearing present Speech: No Abnormal speech present Extrem General: Yes normal to inspection, No clubbing, No cyanosis and No edema Psych Appearance: grossly normal and well kempt Mental Status: mental status grossly normal Speech and movement: Normal speech and movement present Affect: normal affect Attitude: cooperative Thought process: Normal thought process present and not confabulating Thought content: Normal thought content present Insight: Fair insight present (Psych) and Limited insight present (Psych) Judgement: Fair judgement present (Psych) and Limited judgement present (Psych) Assessment & Plan Assessment & Plan (1) Oropharyngeal dysphagia: Code(s): R13.12 - Dysphagia, oropharyngeal phase Category: Medical (2) Tubular adenoma of colon: Comment: One large TA 02/2023 insufficient prep repeat in 1 year; 2 very large TA's 09/2021 repeat 6-12 months Code(s): D12.6 - Benign neoplasm of colon, unspecified Category: Medical (3) GERD (gastroesophageal reflux disease): Code(s): K21.9 - Gastro-esophageal reflux disease without esophagitis Category: Medical Plan KYRGYZ #Wilma Salazar presents today for repeat colonoscopy. Her last, 3 years ago had a large TA removed and that is why the repeat. Her most recent new health problem has been severe unexplained hypoglycemia in the absence of diabetes. Apparently this is currently being worked up by endocrinology, and she has a blood glucose monitoring system in place. She is also complaining of a recent onset dysphagia that seem to start in about October of this year. It happens mostly with grapes and small fruits with skins but she also at times will choke on liquids. This all occurs in the early oropharyngeal phase. She can not identify any trauma to the throat, new medications, that may be a precipitant. She does have a history of esophageal dilation in the past but she says she has been continuing on her famotidine daily. We will order a modified barium swallow to see if there is any problems with the coordination of swallowing, but of course will also get an EGD along with her colonoscopy. We also discussed safe swallowing precautions. There are no prior problems with anesthesia or sedation. She denies any respiratory or cardiac problems. No ID problems. Orders: Orders 2 FL Modified Barium Swallow Today R13.12 - Dysphagia, oropharyngeal phase Referrals 2 GI Procedure Notification D12.6 - Benign neoplasm of colon, unspecified, R13.12 - Dysphagia, oropharyngeal phase Medications: New 2 peg 3350-electrolytes 236-22.74-6.74 -5.86 gram (Golytely) until fecal effluent is clear; do not exceed a total volume of 2,000 mL 240 mL PO Q10M 4,000 mL 0RF 1 day Z12.11 - Encounter for screening for malignant neoplasm of colon bisacodyl (Dulcolax (bisacodyl)) 10 mg (2 x 5 mg) PO BEDTIME 4 tabs 0RF 2 days omeprazole 40 mg PO DAILY 30 caps 6RF 30 days K21.9 - Gastro-esophageal reflux disease without esophagitis Discontinued 2 pregabalin Discontinued Reason: Doctor's Order 75 mg PO BID 60 caps 0RF Coding Level of Care Code Est Pt Level 4 (30749) Diagnoses Oropharyngeal dysphagia R13.12 Tubular adenoma of colon D12.6 GERD (gastroesophageal reflux disease) K21.9 Time Spent (min) 38
[2025-03-12 08:59] VITALS: BP 102/72; PULSE 68; O2SAT 98; BMI 26.3
--- OUTSIDE RECORDS SUMMARY | 2025-03-12 09:02 | XMS_ITS | Encounter Summary ---
Author Organization [employer] Address [address] [place] [address] 7 [place] [address] Care Team Providers Care Feed Management Advisor Name Role Phone Luz Marina Pearson MD Primary Care Provide r Encounter Details Date Type Department Care Team (Late st Contact Info) Description 11/16/[address] [address] Luz Marina Pearson MD [address] [place] [address] [phone] Social History Tobacco Use Types Packs/Day Years [...] Description 03/16/2025 1:30 PM EST Office Visit [facility] MEDICINE [address] [place] [address] [phone] Luz Marina Pearson MD [address] [place] [address] [phone] 04/21/2025 10:45 AM EST Telemedicine [address] [phone] Luz Marina Pearson MD [address] [place] [address] [phone] documented as of this encounter Procedures Procedure Name Priority Date/Time Associated Diagnosis Comments COLONOSCOPY Routine 10/04/2021 documented in this encounter Results * Colonoscopy (10/04/2021) Colonoscopy Normal Normal Narrative Mirtha Cortes - 10/04/2021 Recommended 8-12 month follow up due to large polyps ([facility] [place] Ramón Rossi MD HEALTH MAINTENANCE Final Result documented in this encounter Visit Diagnoses Not on filedocumented in this encounter Care Teams Feed Management Advisor Relationship Specialty Start Date End Date Luz Marina Pearson MD [address] [place] [phone] PCP - General Family Medicine 01/09/18 documented as of this encounter
--- OUTSIDE RECORDS SUMMARY | 2025-03-12 09:02 | XMS_ITS | Encounter Summary ---
Author Organization [employer] Address [address] [facility] 7t [place] [address] Care Team Providers Care Silica Dry Press Helper Name Role Phone Luz Marina Pearson MD Primary Care Provide r Encounter Details Date Type Department Care Team (Late st Contact Info) Description 06/04/2024 Telephone [facility] MEDICINE [address] [place], [place] [phone] Luz Marina Pearson MD [address] [place], [place] [phone] Social History Tobacco Use Types Packs/Day Years [...] Description 03/16/2025 1:30 PM EST Office Visit [facility] MEDICINE [address] [place] [phone] Luz Marina Pearson MD [address] [place] [phone] 04/21/2025 10:45 AM EST Telemedicine [facility] MEDICINE [address] [place] [address] Luz Marina Pearson MD [address] [place] [address] [phone] documented as of this encounter Visit Diagnoses Not on filedocumented in this encounter Additional Health Concerns Assessment Noted Time PHQ-9 Depression Total Score: 0 11/22/19 23 3:07 PM EDT documented as of this encounter Care Teams Silica Dry Press Helper Relationship Specialty Start Date End Date Luz Marina Pearson MD [address] [place] [address] [phone] PCP - General Family Medicine 01/09/18 documented as of this encounter
--- OUTSIDE RECORDS SUMMARY | 2025-03-12 09:02 | XMS_ITS | Clinical Summary ---
Author Organization [employer] Address [address] [place] [address] 7t [place] [address] Care Team Providers Care Assistant Clinical Director Name Role Phone Luz Marina Pearson [...] 5 Active Blood Glucose Monitoring Suppl (FreeStyle [place] Lite) w/Device kitIndications: Hypoglycemia Use to test [...] 2:56 PM EST): 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 by continuous absorption process operator Assessment & Plan (04/20/2023 3:07 PM EST): 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 with [facility] Encounter for preventative adult health care [...] AM EDT): Apply heat on affected area [place] of gabapentin and baclofen Referral to pain management Allergic rhinitis 11/16/2022 Vitamin D deficiency 03/14/2012 Overview (09/03/2024): Lab Results Component Value Date [id number] 27.2 (L) 05/08/2024 - continue cholecalciferol (Vitamin D-3) 25 MCG (1000 UT) tablet Assessment & Plan (09/03/2024 2:04 PM EDT): Lab Results Component Value Date [id number] 27.2 (L) 05/08/2024 - continue cholecalciferol (Vitamin D-3) 25 MCG (1000 UT) tablet Osteoporosis 03/14/2012 Encounters Date Type Department Care Team Description 02/26/2025 Orders Only [facility] MEDICINE [address] [place] [address] Luz Marina Pearson MD 02/25/2025 1:30 PM EDT Office Visit [facility] OPTOMETRY [address] [place] [address] Glenn, Imani, OD Presbyopia (Primary Dx) 02/25/2025 Travel 02/23/2025 10:45 AM EDT Office Visit [facility] MEDICINE [address] [place] [address] Luz Marina Pearson MD Hypoglycemia; Dysphagia, unspecified type; Encounter for immunization 02/23/2025 Travel 02/20/2025 Telephone [facility] MEDICINE [address] [place] [address] Luz Marina Pearson MD Chart Prep 02/19/2025 Travel 02/18/2025 Telephone [facility] [address] [place] [address] Luz Marina Pearson MD Nurse Triage 01/28/2025 9:00 AM EDT Office Visit [facility] OPTOMETRY [address] [place] [address] GlennImani guerin, OD Presbyopia (Primary Dx); Dry eyes; Early cataracts, bilateral 01/28/2025 Travel 01/21/2025 Travel 01/06/2025 Telephone [facility] CHC MED & PEDS [address] [place], [place] [phone] Luz Marina Pearson MD NOV RECALL 12/11/2024 Telephone [facility] MEDICINE [address] [place], [place] [phone] Luz Marina Pearson MD Tspot labs (I informed the patient, that an order for a Tspot was sent to the [facility] lab. The results are being requested by the [facility]. She verbalized understanding, and agreed to have them done.) 12/11/2024 Telephone [facility] MEDICINE [address] [place], [place] [phone] Luz Marina Pearson MD Lab Orders from Last 3 Months Immunizations Immunization Administration [...] Description 03/16/2025 1:30 PM EST Office Visit [address] [address] Luz Marina Pearson MD [address] [place] [phone] 04/21/2025 10:45 AM EST Telemedicine [address] [address] Luz Marina Pearson MD [address] [place] [phone] Health Maintenance Due Date Last Done Comments CT Colonography 1971 FIT DNA/Cologuard 1971 FIT 1971 FOBT 1970 Sigmoidoscopy 1970 Disability Screening 1971 COVID-19 Vaccine ( season) 2024 Colonoscopy 03/12/2025 03/12/2024, 03/01, 10/04/2021 Colorectal Cancer Screening 03/12/2025 Cervical Cancer Screening 03/25/2025 HPV/Cotest 03/25/2025 09/13/2021, 08/28, 09/07/2020, Additional history exists Pap Smear 03/25/2025 01/28/2024, 11/27/2022 Alcohol/Substance Use Screening 04/10/2025 04/10/2024 SDOH Screening 08/25/2025 08/25/2024 Depression Screening 09/03/2025 09/03/2024, 09/04/19 Tobacco Screening 02/23/2026 02/23/2025 Mammogram 02/26/2026 02/26/2025, 01/29, 08/22/2022, Additional history exists DTaP/Tdap/Td Vaccines (3 - Td or Tdap) [...] Procedure Name Priority Date/Time Associated Diagnosis Comments BI MAMMOGRAM SCREENING TOMOSYNTHESIS BILATERAL Routine 02/26/2025 2:20 PM EDT BETA-HYDROXYBUTYRATE Routine 02/25/2025 2:30 PM EDT Hypoglycemia PROINSULIN Routine 02/25/2025 2:30 PM EDT Hypoglycemia C-PEPTIDE [...] Recently Relevant to Health Maintenance Results * BI Mammogram Screening Tomosynthesis Bilateral (02/26/2025 2:20 PM EDT) Anatomical Region Laterality Modality Breast Bilateral Mammography 02/26/2025 2:20 PM EDT Narrative 02/28/2025 10:40 PM EDT [facility] [address] [place] [address] Dr. [place]aya, [place] [address] Mammography Report Signed Patient: Marie Lockwood MR#: [id number] [id number] : 1970 Acct:[id number] Age/Sex: 54 / F ADM Date: 02/26/25 Loc: HO.MAMMO Attending Dr: Luz Marina Pillai MD Ordering Physician: Luz Marina Pearson MD Results: 1Negative Date of Service: 02/26/25 Follow Up: 1 Year From Orig ina Mammogram Procedure(s): MM tomosynthesis screening BI Accession Number(s): [id number] cc: Luz Marina Pearson MD Reason For Exam: SCREENING EXAMINATION: MM SCREENING DIGITAL BREAST TOMOSYNTHESIS, BILATERAL CLINICAL INFORMATION: Screening. Asymptomatic. COMPARISON: Comparison made to multiple prior, most recent February 21, 2024, and most remote November 02, 2016. TECHNIQUE: Digital breast tomosynthesis is performed in mediolateral oblique and craniocaudal views along with computer-aided detection (CAD). Synthesized 2D images are generated from the tomosynthesis. FINDINGS: BREAST COMPOSITION: There are scattered areas of fibroglandular density. BILATERAL BREASTS: No significant masses, suspicious calcifications or other abnormalities are seen in either breast. MM/MM tomosynthesis screening BI IMPRESSION: BILATERAL BREASTS: Negative, no mammographic evidence of malignancy. Normal interval follow-up is recommended in 12 months. ASSESSMENT: BI-RADS: Category 1: Negative RECOMMENDATION: Routine annual mammography screening. FOLLOW-UP: 1 year F/U This examination should not preclude the clinical evaluation of a suspicious palpable abnormality. This patient's information was entered into a reminder system with a target due date for their next mammogram. Electronically signed by: Tomi Robb MD 02/28/2025 10:37 PM EDT Dictated By: Tomi Robb MD Signed By: <Electronically signed by Tomi Robb MD in OV> 02/28/25 7447 DD/ 1420 TD/TT: 02/26/25 1440 Stacker: Procedure Note Donotuseinterpreter, Image - [facility]/28/[facility] [address] [place] [address] Mammography Report Signed Patient: Marie Lockwood#: [id number] : 1970Acct:[id number] Age/Sex: 54 / FADM Date: 02/26/25 Loc: HO.MAMMO Attending Dr: Luz Marina Pillai MD Ordering Physician: Luz Marina Pearson MDResults: 1Negative Date of Service: 02/26/25Follow Up: 1 Year From Orig inal Mammogram Procedure(s): MM tomosynthesis screening BI Accession Number(s): [id number] cc: Luz Marina Pearson MD Reason For Exam: SCREENING EXAMINATION: MM SCREENING DIGITAL BREAST TOMOSYNTHESIS, BILATERAL CLINICAL INFORMATION: Screening. Asymptomatic. COMPARISON: Comparison made to multiple prior, most recent February 21, 2024, and most remote November 02, 2016. TECHNIQUE: Digital breast tomosynthesis is performed in mediolateral oblique and craniocaudal views along with computer-aided detection (CAD). Synthesized 2D images are generated from the tomosynthesis. FINDINGS: BREAST COMPOSITION: There are scattered areas of fibroglandular density. BILATERAL BREASTS: No significant masses, suspicious calcifications or other abnormalities are seen in either breast. MM/MM tomosynthesis screening BI IMPRESSION: BILATERAL BREASTS: Negative, no mammographic evidence of malignancy. Normal interval follow-up is recommended in 12 months. ASSESSMENT: BI-RADS: Category 1: Negative RECOMMENDATION: Routine annual mammography screening. FOLLOW-UP: 1 year F/U This examination should not preclude the clinical evaluation of a suspicious palpable abnormality. This patient's information was entered into a reminder system with a target due date for their next mammogram. Electronically signed by: Tomi Robb MD 02/28/2025 10:37 PM EDT Dictated By: Tomi Robb MD Signed By: <Electronically signed by Tomi Robb MD in OV> 02/28/252236 DD/ 1420 TD/TT: 02/26/25 1440 Stacker: Luz Marina Pillai MD IMG BI PROCEDURES Shen low Result - Final * Beta-Hydroxybutyrate (02/25/2025 2:30 PM EDT) Pathologist [facility] Beta-Hydroxybut yrate 0.06 0.02 - 0.27 mmol/L [facility] Blood Venous blood specimen / Unknown 02/25/2025 2:30 PM EDT 02/25/2025 3:54 PM EDT Luz Marina Pillai MD LAB BLOOD ORDERABLES Final Result Performing Organization Address [facility] Phone Number [facility] [address] [place] [phone] * Insulin (02/25/2025 2:30 PM EDT) [facility] Insulin 11 2 - 29 uU/mL [facility] Comment:This test was perfor med using the [employer] chemiluminescentmethod. Values obtained from different assay methods [...] BLOOD ORDERABLES Final Result Performing Organization Address [facility] Phone Number [facility] [address] [place] [phone] * Proinsulin (02/25/2025 2:30 PM EDT) [facility] Proinsulin 8.4 < OR = 18.8 pmol/L [facility] Comment:This test was perfor med using a laboratory developed ELISAmethod. Values obtained from different assay methods cannotbe used interchangeably. Proinsulin levels, regardless ofvalue, should not be interpreted as absolute evidence of thepresence or absence of disease.This test was developed and its analytical performancecharacteristics have been determined by [employer].It has not been cleared or approved by the FDA. This assayhas been validated pursuant to the CLIA regulations and isused for clinical purposes.THIS TEST WAS PERFORMED AT:[employer] [id number] [address] VALNIKKI Á[place], [place] [address]ZEWGWJEANIE SINGH MD,PHD,MARTINEZ Blood Venous blood specimen / Unknown 02/25/2025 2:30 PM EDT 02/25/2025 3:54 PM EDT Luz Marina Pillai MD LAB BLOOD ORDERABLES Final Result Performing Organization Address [facility] Co de Phone Number [facility] [address] [place] [phone] * C-Peptide (02/25/2025 2:30 PM EDT) C-Peptide 2.18 0.80 - 3.85 ng/mL [facility] Comment:THIS TEST WAS PERFOR MED AT:[employer] [address] [address]PJQRAALYSIA LFOYD MD Blood Venous blood specimen / Unknown 02/25/2025 2:30 PM EDT 02/25/2025 3:54 PM EDT Luz Marina Pillai MD LAB BLOOD ORDERABLES Final Result Performing Organization Address [facility] Co de Phone Number [facility] [address] [place] [phone] * POCT Hgb A1c (02/23/2025 10:52 AM EDT) Hemoglobin A1C 5.3 4.0 - 5.7 % QC Media Lot # [id number] Lot# Expiration Date Blood 02/23/2025 10:5 2 AM EDT us Luz Marina Pillai MD POINT OF CARE TEST EN TER/EDIT ORDERABLES Final Result * POCT Glucose (02/23/2025 10:52 AM EDT) Glucose Blood, POC 112 60 - 200 mg/dL QC Media Lot # [id number] Lot# Expiration Date 31126 Blood Capillary blood specimen / Unknown 02/23/2025 10:52 AM EDT Luz Marina Pillai MD POINT OF CARE TEST EN TER/EDIT ORDERABLES Final Result * T-SPOT??.TB (12/11/2024 2:13 PM EDT) Pathologist [facility] T Spot TB Negative Negative [facility] Comment:A negative test resu lt [...] as aquantitative test. TS PANEL A 2 [facility] TS PANEL B 0 [facility] Negative Control Passed [facility] Positive Control Passed [facility] Comment:For additional infor natasha, please refer tohttp://education.[employer]/faq/TPS006(This link is being provided for informational/educational purposes only.)REPORT COMMENT:REC'D AT [facility] TEST WAS PERFORMED AT:[employer] [id number] [place] [address]MWBJMEEJERMAINE PURVIS MD,PHD 12/11/2024 2:13 PM EDT 12/11/2024 4:28 PM EDT us Luz Marina Pillai MD LAB BLOOD ORDERABLES Final Result Performing Organization Address [facility]/ZIP Co de Phone Number [facility] [address] [place] [address] [phone] * Hepatitis C Antibody with Reflex to HCV, RNA, Quantitative, Real-Time PCR (09/03/2024 3:26 PM EDT) Hepatitis C Antibody Nonreactive Nonreactive [facility] Comment:Antibodies to HCV no t detected; does not exclude early acuteHCV infection. Blood Venous blood specimen / Unknown 09/03/2024 3:26 PM EDT 09/03/2024 4:13 PM EDT us Fay Patel MD LAB BLOOD ORDERABLES Final Result Performing Organization Address [facility] Co de Phone Number [facility] [address] [place] [phone] [phone] * HIV-1/2 Antigen and Antibodies, Fourth Generation, with Reflexes (09/03/2024 3:26 PM EDT) HIV AB/AG Nonreactive Nonreactive [facility] Comment:HIV-1 p24 Ag and/or HIV-1/HIV-2 Ab not detected.A test result that is nonreactive does not exclude thepossibility of exposure to or infection with HIV-1 and/orHIV-2. Nonreactive results in this assay for individualswith prior exposure to HIV-1 and/or HIV-2 may be due toantigen and antibody levels that are below the limit ofdetection of this assay.The [employer] HIV Ag/Ab Combo assay result andsupplemental assay results should be interpreted inconjunction with the patient's clinical presentation,history and other laboratory results. If the results areinconsistent with clinical evidence, additional testing issuggested to confirm the result. Blood Venous blood specimen / Unknown 09/03/2024 3:26 PM EDT 09/03/2024 4:13 PM EDT Fay Patel MD LAB BLOOD ORDERABLES Final Result [facility] [address] [place] [address] [phone] * Hm Colonoscopy (03/12/2024 2:16 PM EST) Historical Provider HEALTH MAINTENANCE Final Result * HM PAP/HPV (01/28/2024 2:09 PM EDT) Historical Provider HEALTH MAINTENANCE Final Result * (ABNORMAL) HPV E6/E7 RFLX LILIAN 16 18/45 (09/13/2021 2:27 PM EDT) Pathologist [facility] HPV 16 RNA NOT DETECTED NOT DETECTED [facility] HPV 18/45 RNA NOT DETECTED NOT DETECTED [facility] Comment: Methodology: Monument Mason Mediated Amplification The analytical performance characteristics of this assay have been determined by [employer]. The modifications have not been cleared or approved by the FDA. This assay has been validated pursuant to the CLIA regulations and is used for clinical purposes. THIS TEST WAS PERFORMED AT: [employer] [address] [place] [address],[place] [address] ALYSIA FLOYD MD HPV mRNA E6/E7 rflx Detected(A) Not Detected [facility] Comment: Methodology: Monument Mason-Mediated Amplification This assay detects E6/E7 viral messenger RNA (mRNA) from 14 high-risk HPV types (16,18,31,33,35,39,45,51,52,56,58,59,66,68). The analytical performance characteristics of this assay have been determined by [employer]. The modifications have not been cleared or approved by the FDA. This assay has been validated pursuant to the CLIA regulations and is used for clinical purposes. For additional information, please refer to http://education.[employer]/faq/DGR960z0 (This link if provided for information/ educational purposes only.) THIS TEST WAS PERFORMED AT: [facility] [address] [place] [address] [address]LO[address],[place] [address] ALYSIA FLOYD MD 09/13/2021 2:27 PM EDT us Latisha Dumont HISTORICAL/NON ORDERABLE LABS Fi nal Result [facility] Critical access hospital Anywhere [address] from Last 3 Months or Most Recently Relevant to Health Maintenance Insurance [facility] ST[facility] Care Teams Assistant Clinical Director Relationship Specialty Start Date End Date Luz Marina Pearson MD [address] [place] [address] PCP - General Family Medicine 9/12/18
--- OUTSIDE RECORDS SUMMARY | 2025-03-12 09:02 | XMS_ITS | Encounter Summary ---
Author Organization [employer] Address [address] [place] [address] 7t [place] [address] Care Team Providers Care Pulpwood Contractor Name Role Phone Luz Marina Pearson MD Primary Care Provide r Encounter Details Date Type Department Care Team (Late Contact Info) Description 02/01/2023 Abstract [facility] MEDICINE [address] [place] [address] [phone] Mirtha Cortes Social History Tobacco Use Types [...] Description 03/16/2025 1:30 PM EST Office Visit [facility] [address] [place] [address] [phone] Luz Marina Pearson MD [address] [place] [address] [phone] 04/21/2025 10:45 AM EST Telemedicine [facility] [address] [place] [address] [phone] Luz Marina Pearson MD [address] [place] [address] documented as of this encounter Visit Diagnoses Not on filedocumented in this encounter Additional Health Concerns Assessment Noted Time PHQ-9 Depression Total Score: 0 11/22/19 23 3:07 PM EDT documented as of this encounter Care Teams Pulpwood Contractor Relationship Specialty Start Date End Date Luz Marina Pearson MD [address] [place] [address] PCP - General Family Medicine 01/09/18 documented as of this encounter
--- OUTSIDE RECORDS SUMMARY | 2025-03-12 09:02 | XMS_ITS | Encounter Summary ---
Author Organization [employer] Address [address] [facility] 7t [place] [address] Care Team Providers Care Sensitometrist Name Role Phone Luz Marina Pearson MD Primary Care Provide r Encounter Details Date Type Department Care Team (Late st Contact Info) Description 09/03/2024 Orders Only [facility] PEDS [address] [place], [place] [phone] Provider, MD Sergio Social History Tobacco Use [...] Office Visit [facility] MEDICINE [address] [place] [phone] Luz Marina Pearson MD [address] [place] [phone] 04/21/2025 10:45 AM EST Telemedicine [facility] MEDIC[facility] [address] [place] [phone] Luz Marina Pearson MD [address] [place] [phone] documented as of this encounter Procedures Procedure [...] documented as of this encounter Care Teams Sensitometrist Relationship Specialty Start Date End Date Luz Marina Pearson MD [address] [place] [address] PCP - General Family Medicine 01/09/18 documented as of this encounter
--- OUTSIDE RECORDS SUMMARY | 2025-03-12 09:02 | XMS_ITS | Encounter Summary ---
Author Organization [employer] Address [address] [facility] 7t [place] [address] Care Team Providers Care Sample Cutter Name Role Phone Luz Marina Pearson MD Primary Care Provide r Encounter Details Date Type Department Care Team (Late st Contact Info) Description 03/26/2023 Abstract [facility] MEDICINE [address] [place], [place] [phone] Mirtha Cortes Social History Tobacco Use Types [...] Description 03/16/2025 1:30 PM EST Office Visit [address] [phone] Luz Marina Pearson MD [address] [place] [address] [phone] 04/21/2025 10:45 AM EST Telemedicine [address] [phone] Luz Marina Pearson MD [address] [place] [address] [phone] documented as of this encounter Procedures Procedure [...] documented as of this encounter Care Teams Sample Cutter Relationship Specialty Start Date End Date Luz Marina Pearson MD [address] [place] [address] [phone] PCP - General Family Medicine 01/09/18 documented as of this encounter
--- OUTSIDE RECORDS SUMMARY | 2025-03-12 09:03 | XMS_ITS | Patient Health Record ---
Author Organization [facility] Address [address] [place] [address] Care Team Providers Care Fact Checker Name Role Phone Adarsh Edwards Unavailable [phone] Reason For Referral No Information Plan Of Treatment No Information
== END 2025-03-12 09:45 | disposition home or self-care (01) ==
LOC: HO.HGI 08:42
PROVIDERS: PCP Internal Medicine; Visit Provider Nurse Practitioner
DX: R13.12 Dysphagia, oropharyngeal phase (principal); D12.6 Benign neoplasm of colon, unspecified; K21.9 Gastro-esophageal reflux disease without esophagitis
CPT/HCPCS: 99214

== ENCOUNTER → 2025-03-12 08:41 | Outpatient (BNVA) | payer MEDICAID, SELFPAY | PROVIDERS: PCP Internal Medicine; Visit Provider Nurse Practitioner | DX: R13.12 Dysphagia, oropharyngeal phase (principal); D12.6 Benign neoplasm of colon, unspecified; K21.9 Gastro-esophageal reflux disease without esophagitis | CPT/HCPCS: 99212 ==

== ENCOUNTER 2025-04-06 14:05 | Outpatient (REF) | payer MEDICAID, SELFPAY ==
--- NOTE | ~2025-04-06 | FL_ITS ---
EXAMINATION: XR BARIUM SWALLOW CLINICAL INFORMATION: R13.12 - Dysphagia, oropharyngeal phase . Globus sensation. COMPARISON: None available. TECHNIQUE: Fluoroscopic guidance provided to speech and hearing department for modified barium swallow. Patient was administered thin liquid barium, barium mixed with applesauce and barium on a cookie. FINDINGS: No aspiration or penetration seen with any media. No retention in the vallecula. Surgical clips project over the upper anterior neck. See speech and hearing report for detailed findings. FLUOROSCOPY TIME: 56 seconds DOSE AREA PRODUCT: 636 uGy-m2 (microgray-meter squared) FL/FL Modified Barium Swallow IMPRESSION: Unremarkable examination. Electronically signed by: Beatriz Tenorio MD 04/06/2025 03:53 PM EST
--- NOTE | 2025-04-06 16:39 | MHC.SL.IMP ---
Date of Plan of Treatment: 04/06/25 Onset of Symptoms/Illness: 04/06/07 Date Treatment Started: 04/06/25 Admitting Diagnosis: GERD Primary Speech & Language Diagnosis: R13.13 Pharyngeal Phase Dysphagia Reason for Today's Visit: 49036 Modified Barium Swallow Study Pre-evaluation Dietary Consistencies: Regular Pre-evaluation Liquid Consistency: Thin Pre-evaluation Medication Administration: Whole with Liquid Medical History: Modified Barium Swallow Study Fluoroscopic Evaluation of Swallowing Function CPT Code 08800 Evaluation Year: 2024 Reason for Study: Patient reports globus sensation and ?difficulty getting things down? Referring Physician: Erica GONCALVES Evaluating Clinician: Donna Frazier MA, CCC-SENIOR REPORT DEVELOPER Study Number: 1 Patient Name: Marie Lockwood Status: Outpatient, Ambulatory Age: 54 Sex: Female Medical History Medical History (Updated 03/12/25 @ 09:42 by IVANNA Basilio) History of sepsis Bowel perforation Colon cancer screening Dysplasia of cervix, low grade (BETH 1) Chronic sinusitis Migraine Vitamin D deficiency Osteopenia Surgical History (Updated 03/12/25 @ 09:42 by IVANNA Basilio) H/O laparoscopy H/O parotidectomy Hx of colonoscopy History of cholecystectomy H/O LEEP Hx of tonsillectomy Hx of abdominal hysterectomy Hx of section Current (pre-evaluation) Intake/Diet: Route: PO Diet Grade: Regular Liquid Consistencies: Thin Pre-Study Functional Oral Intake Scale (FOIS): 7- Total oral intake with no restrictions Pain: None reported at time of study SUBJECTIVE: Patient is a 54 year old female referred for a modified barium swallow study by the [facility]. office. Patient w/ hx GERD, per GI, ?continues on famotidine bid w/ good control of her reflux.? Patient reports having surgery on the right side of her neck back in 2006. She says immediately after this procedure she felt swelling in her neck that made it difficult for her to get anything down. She says her dysphagia has worsened since this past October. She says that both solids and liquids are ?difficult to get down? and get stuck in her throat. When asked to localize this sensation, patient pointed to the sternal notch area. She says she has to ?swallow hard? in order to get it down, which causes her throat to hurt. She notes particular difficulty with grapes and other fruits that have skins. She has reportedly had an esophageal dilation done in the past, however, patient was unable to recall when this was done. She reports she is scheduled for an endoscopy in May. Oral Motor Exam Facial Symmetry: Symmetrical Mouth Occlusion: Normal Oral-Facial Teeth Characteristics: Intact/Normal Partially Missing Oral-Facial Teeth Miscellaneous Observation: Natural dentition w/ some spaces Oral-Facial Lip Pucker Description: Normal Oral-Facial Smile (Lips) Description: Normal Oral-Facial Puff Cheeks Description: Normal Tongue Size: Normal Tongue Excursion Description: Normal Tongue Range of Movement Description: Normal Tongue Speed of Movement Description: Normal Tongue Strength of Movement (against opposing pressure): Normal Tongue Movement Characteristics: Normal/Absent Food and Liquid Trials: Oral Impairment: Lip Closure: 0=No labial escape Oral Impairment: Tongue Control During Bolus Hold: 2=Posterior escape of less than half of bolus Oral Impairment: Bolus Preparation/Mastication: 0=Timely and efficient chewing and mashing Oral Impairment: Bolus Transport/Lingual Motion: 1= Delayed initiation of tongue motion Oral Impairment: Oral Residue: 2=Residue collection on oral structures Oral Impairment:Initiation of Pharyngeal Swallow: 1=Bolus head in valleculae Pharyngeal Impairment: Soft Palate Elevation: 0=No bolus between soft palate (SP)/pharyngeal wall (PW) Pharyngeal Impairment: Laryngeal Elevation: 0=Complete superior movement of thyroid cartilage (see description) Pharyngeal Impairment: Anterior Hyoid Excursion: 0=Complete anterior movement Pharyngeal Impairment: Epiglottic Movement: 1=Partial inversion Pharyngeal Impairment: Laryngeal Vestibular Closure:: 0=Complete: no air/contrast in laryngeal vestibule Pharyngeal Impairment: Pharyngeal Stripping Wave: 0=Present: complete Pharyngeal Impairment: Pharyngeal Contraction: Did not test Pharyngeal Impairment: Pharyngoesophageal Segment Openin=Complete distension and complete duration: no obstruction of flow Pharyngeal Impairment: Tongue Base (TB) Retraction: 1=Trace column of contrast/air between TB and posterior PW Pharyngeal Impairment: Pharyngeal Residue: 1=Trace residue within or on pharyngeal structures Pharyngeal Impairment: Esophageal Clearance Upright Position: Did not test Impressions and Recommendations OBJECTIVE: Time-out: performed at 15:00 Evaluation Start: 14:45; Stop: 14:50 Patient Positioning: Seated 70-90 degrees Viewing Planes: LATERAL ONLY Contrast: MBSImP? Standardized Protocol using commercially prepared, standardized Barium viscosities, including: Varibar? THIN LIQUID (40% w/v, <15 cps) , Varibar? PUDDING (40% w/v, <5996-5073 cps) , 1/2 Shortbread Cookie (1 x1 x.25 ) [facility] ID: [id number] [facility] Results: Lip closure for intraoral bolus containment resulted in no labial escape. Tongue control during bolus hold resulted in posterior escape of less than half of the bolus. Bolus preparation and mastication resulted in timely and efficient chewing and mashing. Bolus transport/lingual motion demonstrated delayed initiation of tongue motion. Oral residue was a collection on oral structures. Initiation of the pharyngeal swallow occurred when the bolus head was in the valleculae. Soft palate elevation resulted in no bolus between the soft palate and the pharyngeal wall. Laryngeal elevation demonstrated complete superior movement of the thyroid cartilage with complete approximation of the arytenoids to the epiglottic petiole. Anterior hyoid excursion demonstrated complete anterior movement. Epiglottic movement resulted in partial inversion. Laryngeal vestibular closure was complete, as indicated by no air or contrast within the laryngeal vestibule at the height of the swallow. Pharyngeal stripping wave was present and complete. Pharyngeal contraction could not be determined due to logistical reasons not related to physiologic impairment. Pharyngoesophageal segment opening was completely distended for complete duration with no obstruction of bolus flow. Tongue base retraction allowed a trace column of contrast or air between the retracted tongue base and the posterior pharyngeal wall. Pharyngeal residue was a trace within or on pharyngeal structures. Esophageal clearance in the upright position could not be assessed due to logistical reasons not related to physiologic impairment. Oral Impairment Score: 6 Pharyngeal Impairment Score: 1 (absence of score, component 13) Esophageal Impairment Score: --- (absence of score, component 17) Laryngeal Penetration and Aspiration: Neither penetration nor aspiration was observed in today's study with Cookie, Pudding-thick, Thin. ASSESSMENT: This exam was performed by the radiologist and the speech pathologist. Patient was seated upright at approximately 90 degrees in a chair. She fed herself independently and trialed the following consistencies: -Thin liquid (via individual and sequential cup sips) -Puree (mixture applesauce w/ barium pudding) -Regular (shortbread cookies coated w/ barium pudding) Complete lip closure with no anterior loss of bolus. Reduced tongue control, with premature posterior spillage from the oral cavity and trace contrast subsequently collecting in the valleculae prior to initiation of the pharyngeal swallow trigger. Mastication was timely and efficient with rotary chewing pattern. Posterior bolus transport was delayed in initiation, with brisk lingual movement. Pharyngeal swallow trigger initiated as the bolus head reached the valleculae. Post-swallow, there was minimal residue coating the posterior tongue and tongue base. No evidence of nasopharyngeal reflux. Complete laryngeal elevation, with partial epiglottic inversion and complete laryngeal vestibular closure. There was no evidence of aspiration or penetration on any consistency during this exam. Complete clearance of the valleculae and pyriforms and no obstruction of flow through the PES. Radiologist incidentally noted, ?Surgical clips project over the upper anterior neck.? Liquid Intake Recommendation: Thin Liquid Intake Strategies: Unrestricted Dietary Recommendations: Regular Medication Administration: Whole with Liquid Please contact the pharmacy regarding appropriate crushable or liquid drug formulations that are available whenever modified delivery is recommended. Compensatory Strategies Recommended: Sitting Upright (90 deg), Small Bites and Sips, Alternate Liquids/Solids, Rate of Ingestion Change Supervision during eating and or drinking: None Needed Recommendation for Speech Therapy: NA:Typical Evaluation Text Comment: Intake Recommendations: Route: PO Diet Grade: Regular Liquid Consistencies: Thin Post-Study Functional Oral Intake Scale (FOIS): 7- Total oral intake with no restrictions No evidence of aspiration or penetration during this exam. Minimal lingual residue cleared with subsequent swallows. Complete pharyngeal clearance. Suggested Referrals: The patient might benefit from a referral to: Gastroenterology Indication for Referral: Follow-up Therapy Recommendations: Further speech intervention is not warranted at this time, as patient?s swallow in the oral and pharyngeal phases is deemed functional based on observations made during this exam. Recommend patient continue on unmodified textures REGULAR solids and THIN liquids with strategies to promote clearance: take small bites, chew well, alternate with sips of liquid, dry swallows as needed. Patient is to follow up with Gastroenterology as needed for c/o globus sensation (MBSS showing good pharyngeal clearance). Clinician - Supplemental, Miscellaneous Communication: It is important to note MBSS objective studies are snapshots in time and Patient function might vary with factors such as time of day or concomitant medical conditions. For this reason, the final treatment plan for this patient should rest with their medical care team. Additional recommendations should be considered with the totality of the Patient in mind. Thank for the opportunity to participate in the care of this patient. If you have any questions about the content of this report, please contact the [facility] at [facility]. Education: Education regarding findings from today's study and plans for therapy were provided to Patient only through Verbal Instruction. Understanding was expressed by the Patient only. Receiving Tank Operator Clinician/Clinical Fellow: No Supervisory Statement: N/A Speech Language Pathologist: Donna Frazier M.A., CCC-SENIOR REPORT DEVELOPER
--- OUTSIDE RECORDS SUMMARY | 2025-04-06 22:56 | XMS_ITS | Encounter Summary ---
Author Organization [employer] Address [address] [place] [address] [address] [place] [address] Care Team Providers Care Engineering And Operations Director Name Role Phone Luz Marina Pearson MD Primary Care Provide r Encounter Details Date Type Department Care Team (Late st Contact Info) Description 11/16/2022 Abstract [facility] MEDICINE [address] [place] [phone] Luz Marina Pearson MD [address] [place] [address] [phone] Social History Tobacco Use Types Packs/Day Years [...] Care Team (Late st Contact Info) Description 04/21/2025 10:45 AM EST Telemedicine [facility]INE [address] [place] [phone] Luz Marina Pearson MD [address] [place] [address] [phone] 06/23/2025 1:45 PM EST Office Visit [facility] [address] [place] [address] [phone] Luz Marina Pearson MD [address] [place] [address] [phone] documented as of this encounter Procedures Procedure Name Priority Date/Time Associated Diagnosis Comments COLONOSCOPY Routine 10/04/2021 documented in this encounter Results * Colonoscopy (10/04/2021) Colonoscopy Normal Normal Narrative Mirtha Cortes - 10/04/2021 Recommended 8-12 month follow up due to large polyps [place] [place] Ramón Rossi MD HEALTH MAINTENANCE Final Result documented in this encounter Visit Diagnoses Not on filedocumented in this encounter Care Teams Engineering And Operations Director Relationship Specialty Start Date End Date Luz Marina Pearson MD [address] [place] [phone] PCP - General Family Medicine 01/09/18 documented as of this encounter
--- OUTSIDE RECORDS SUMMARY | 2025-04-06 22:56 | XMS_ITS | Encounter Summary ---
Author Organization [employer] Address [address] [facility] [address] [place] [address] Care Team Providers Care Event Av Operator Name Role Phone Luz Marina Pearson MD Primary Care Provide r Encounter Details Date Type Department Care Team (Late st Contact Info) Description 06/04/2024 Telephone [facility] [address], [place] [phone] Luz Marina Pearson MD [address] [place], [place] [phone] Social History Tobacco Use Types Packs/Day Years Used Date Smoking Tobacco: Never Passive Smoke Exposure: Never Smokeless Tobacco: Never Alcohol Use Standard Drinks/Week Comments Never 0 (1 standard drink = 0.6 oz pur e alcohol) Depression Answer Date Recorded Patient Health Questionnaire-9 Score 0 11/21/2022 Housing Stability Answer Date Recorded What is your housing situation today? I have dollykami jsaso 02/14/[address] you li [...] Info) Description 04/21/2025 10:45 AM EST Telemedicine [facility] [address] [place] [phone] Luz Marina Pearson MD [address] [place] [phone] 06/23/2025 1:45 PM EST Office Visit [facility] [address] [place] [phone] Luz Marina Pearson MD [address] [place] [address] [phone] documented as of this encounter Visit Diagnoses Not on filedocumented in this encounter Additional Health Concerns Assessment Noted Time PHQ-9 Depression Total Score: 0 11/22/19 23 3:07 PM EDT documented as of this encounter Care Teams Event Av Operator Relationship Specialty Start Date End Date Luz Marina Pearson MD [address] [place] [address] [phone] PCP - General Family Medicine 01/09/18 documented as of this encounter
--- OUTSIDE RECORDS SUMMARY | 2025-04-06 22:56 | XMS_ITS | Encounter Summary ---
Author Organization [employer] Address [address] [facility] [address] [place] [address] Care Team Providers Care Longshore Equipment Operator Name Role Phone Luz Marina Pearson MD Primary Care Provide r Encounter Details Date Type Department Care Team (Late st Contact Info) Description 03/26/[address] [facility] [address] [place], [place] [phone] Mirtha Cortes Social History Tobacco Use Types [...] Info) Description 04/21/2025 10:[address] [facility] [address] [place] [address] [phone] Luz Marina Pearson MD [address] [place] [address] [phone] 06/23/2025 1:45 PM EST Office Visit [address] [phone] Luz Marina Pearson MD [address] [place] [address] [phone] documented as of this encounter Procedures Procedure [...] documented as of this encounter Care Teams Longshore Equipment Operator Relationship Specialty Start Date End Date Luz Marina Pearson MD [address] [place] [address] [phone] PCP - General Family Medicine 01/09/18 documented as of this encounter
--- OUTSIDE RECORDS SUMMARY | 2025-04-06 22:56 | XMS_ITS | Clinical Summary ---
Author Organization [employer] Address [address] [place] [address] 7t [place] [address] Care Team Providers Care Construction Carpenter Name Role Phone Luz Marina Pearson [...] 5 Active Blood Glucose Monitoring Suppl (FreeStyle [place] Lite) w/Device kitIndications: Hypoglycemia Use to test blood sugar 1 time daily 1 kit Active Active Problems Problem Noted Date Diagnosed Date [...] LEEP 02/23/2025 Overview (02/23/2025): 2019 for persistent BTEH 1 Lumbar radicular pain 02/23/2025 Migraine 02/23/2025 [...] 2:56 PM EST): 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 by lumber checker Assessment & Plan (04/20/2023 3:07 PM EST): 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 with MIXER OPERATOR TABLETS Encounter for preventative adult health care exa [...] AM EDT): Apply heat on affected area Hudson of gabapentin and baclofen Referral to pain management Allergic rhinitis 11/16/2022 Vitamin D deficiency 03/14/2012 Overview (09/03/2024): Lab Results Component Value Date [id number] 27.2 (L) 05/08/2024 - continue cholecalciferol (Vitamin D-3) 25 MCG (1000 UT) tablet Assessment & Plan (09/03/2024 2:04 PM EDT): Lab Results Component Value Date [id number] 27.2 (L) 05/08/2024 - continue cholecalciferol (Vitamin D-3) 25 MCG (1000 UT) tablet Osteoporosis 03/14/2012 Encounters Date Type Department Care Team Description 04/06/2025 Orders Only [facility] External Provider, [facility] 03/16/2025 1:30 PM EST Office Visit [facility] [address] [place] [address] Luz Marina Pearson MD Hypoglycemia 03/16/2025 Travel 03/15/2025 Travel 02/26/2025 Orders Only [facility] [address] [place] [address] Luz Marina Pearson MD 02/25/2025 1:30 PM EDT Office Visit [facility] [address] [place] [address] Glenn, Imani, OD Presbyopia (Primary Dx) 02/25/2025 Travel 02/23/2025 10:45 AM EDT Office Visit [facility] [address] [place] [address] Luz Marina Pearson MD Hypoglycemia; Dysphagia, unspecified type; Encounter for immunization 02/23/2025 Travel 02/20/2025 Telephone [facility] [address] [place] [address] Luz Marina Pearson MD Chart Prep 02/19/2025 Travel 02/18/2025 Telephone [facility] [address] [place] [address] Luz Marina Pearson MD Nurse Triage 01/28/2025 9:00 AM EDT Office Visit [facility] [address] [place] [address] Glenn, Imani, OD Presbyopia (Primary Dx); Dry eyes; Early cataracts, bilateral 01/28/2025 Travel 01/21/2025 Travel 01/06/2025 Telephone [facility] [address] [place], [place] [phone] Luz Marina Pearson MD NOV RECALL from Last 3 Months Immunizations Immunization Administration [...] Sign Reading Time Taken Comments Blood Pressure 110/72 03/16/2025 1:31 PM EST Pulse 80 03/16/2025 1:31 PM EST Temperature 36.1 C (97 F) 03/16/2025 1:31 PM EST Respiratory Rate 12 03/16/2025 1:31 PM EST Oxygen Saturation 99% 03/16/2025 1:31 PM EST Inhaled Oxygen Concentration - - Weight 74.4 kg (164 lb) 03/16/2025 1:31 PM EST Height 162.6 cm (5' 4 ) 03/16/2025 1:31 PM EST Body Mass Index 28.15 03/16/2025 1:31 PM EST Plan of Treatment Upcoming Encounters Date Type Department Care Team (Late st Contact Info) Description 04/21/2025 10:45 AM EST Telemedicine [facility] [address] [place] [address] Luz Marina Pearson MD [address] [facility] [place] [phone] 06/23/2025 1:45 PM EST Office Visit [facility] [address] [place], [place] [phone] Luz Marina Pearson MD [address] [place], [place] [phone] Health Maintenance Due Date Last Done Comments CT Colonography 1971 FIT DNA/Cologuard 1971 FIT 1971 FOBT 1970 Sigmoidoscopy 1971 COVID-19 Vaccine ( season) 2024 Colonoscopy 03/12/2025 03/12/2024, 02/28, 03/21/2023, Additional history exists Colorectal Cancer Screening 03/12/2025 Cervical Cancer Screening 03/25/2025 HPV/Cotest 03/25/2025 09/13/2021, 08/28, 09/07/2020, Additional history exists Pap Smear 03/25/2025 01/28/2024, 11/27/2022 Alcohol/Substance Use Screening 04/10/2025 04/10/2024 SDOH Screening 08/25/2025 08/25/2024 Depression Screening 09/03/2025 09/03/2024, 09/04/19 25 Mammogram 02/26/2026 02/26/2025, 01/29, 08/22/2022, Additional history exists Disability Screening 03/15/2026 03/15/2025 Tobacco Screening 03/16/2026 03/16/2025 DTaP/Tdap/Td Vaccines (3 - Td or Tdap) [...] Procedure Name Priority Date/Time Associated Diagnosis Comments FL BARIUM SWALLOW MODIFIED Routine 04/06/2025 2:35 PM EST BI MAMMOGRAM SCREENING TOMOSYNTHESIS BILATERAL Routine 02/26/2025 2:20 PM EDT BETA-HYDROXYBUTYRATE Routine 02/25/2025 2:30 PM EDT Hypoglycemia PROINSULIN Routine 02/25/2025 2:30 PM EDT Hypoglycemia C-PEPTIDE Routine 02/25/2025 2:30 PM EDT Hypoglycemia INSULIN Routine 02/25/2025 2:30 PM EDT Hypoglycemia POCT GLYCATED HEMOGLOBIN, TOTAL Routine 02/23/2025 10:52 AM EDT Hypoglycemia POCT GLUCOSE Routine 02/23/2025 10:52 AM EDT Hypoglycemia HEPATITIS C AB W/REFL TO HCV RNA, [...] Recently Relevant to Health Maintenance Results * FL BARIUM SWALLOW MODIFIED (04/06/2025 2:35 PM EST) Anatomical Region Laterality Modality Head, Neck Radiographic Carmen ging 04/06/2025 2:35 PM EST Narrative 04/06/2025 3:56 PM EST [place] [address] Fluoroscopy Report Signed Patient: Marie Lockwood MR#: [id number] 955 : 1970 Acct:[id number] Age/Sex: 54 / F ADM Date: 04/06/25 Loc: HO.TERESITAAY Attending Dr: Erica GONCALVES Ordering Physician: Erica Tello Date of Service: 04/06/25 Procedure(s): FL Modified Barium Swallow Accession Number(s): [id number] cc: Luz Marina Pearson MD; Erica Tello Reason for Exam: R13.12 - Dysphagia, oropharyngeal phase EXAMINATION: XR BARIUM SWALLOW CLINICAL INFORMATION: R13.12 - Dysphagia, oropharyngeal phase . Globus sensation. COMPARISON: None available. TECHNIQUE: Fluoroscopic guidance provided to speech and hearing department for modified barium swallow. Patient was administered thin liquid barium, barium mixed with applesauce and barium on a cookie. FINDINGS: No aspiration or penetration seen with any media. No retention in the vallecula. Surgical clips project over the upper anterior neck. See speech and hearing report for detailed findings. FLUOROSCOPY TIME: 56 seconds DOSE AREA PRODUCT: 636 uGy-m2 (microgray-meter squared) FL/FL Modified Barium Swallow IMPRESSION: Unremarkable examination. Electronically signed by: Beatriz Tenorio MD 04/06/2025 03:53 PM EST RP Dictated By: Beatriz Tenorio MD Signed By: <Electronically signed by Beatriz Tenorio MD in OV> 04/06/25 1553 DD/ 1435 TD/TT: 04/06/25 1450 Catholic Priest: DEUCE Procedure Note Donotuseinterpreter, Image - 04/06/2025 [place] [address] Fluoroscopy Report Signed Patient: Ameya Lockwood#: [id number] 955 : 1970Acct:[id number] Age/Sex: 54 / FADM Date: 04/06/25 Loc: HOALEX Attending Dr: Erica GONCALVES Ordering Physician: Erica Tello Date of Service: 04/06/25 Procedure(s): FL Modified Barium Swallow Accession Number(s): [id number] cc: Luz Marina Pearson MD; Erica Tello Reason for Exam: R13.12 - Dysphagia, oropharyngeal phase EXAMINATION: XR BARIUM SWALLOW CLINICAL INFORMATION: R13.12 - Dysphagia, oropharyngeal phase . Globus sensation. COMPARISON: None available. TECHNIQUE: Fluoroscopic guidance provided to speech and hearing department for modified barium swallow. Patient was administered thin liquid barium, barium mixed with applesauce and barium on a cookie. FINDINGS: No aspiration or penetration seen with any media. No retention in the vallecula. Surgical clips project over the upper anterior neck. See speech and hearing report for detailed findings. FLUOROSCOPY TIME: 56 seconds DOSE AREA PRODUCT: 636 uGy-m2 (microgray-meter squared) FL/FL Modified Barium Swallow IMPRESSION: Unremarkable examination. Electronically signed by: Beatriz Tenorio MD 04/06/2025 03:53 PM EST RP Dictated By: Beatriz Tenorio MD Signed By: <Electronically signed by Beatriz Tenorio MD in OV> 04/06/25 1553 DD/ 1435 TD/TT: 04/06/25 1450 Catholic Priest: DEUCE [facility] External Provider IMG FLU OROSCOPY PROCEDURES Final Result * BI Mammogram Screening Tomosynthesis Bilateral (02/26/2025 2:20 PM EDT) Anatomical Region Laterality Modality Breast Bilateral Mammography 02/26/2025 2:20 PM EDT Narrative 02/28/2025 10:40 PM EDT [address] [place] [address] Mammography Report Signed Patient: Marie Lockwood MR#: [id number] 955 : 1970 Acct:[id number] Age/Sex: 54 / F ADM Date: 02/26/25 Loc: HO.MAMMO Attending Dr: Luz Marina Pillai MD Ordering Physician: Luz Marina Pearson MD Results: 1Negative Date of Service: 02/26/25 Follow Up: 1 Year From Orig inal Mammogram Procedure(s): MM tomosynthesis screening BI Accession Number(s): [id number] cc: Luz Marina Pearson MD Reason For [...] by Tomi Robb MD in OV> 02/28/25 7071 DD/ 1420 TD/TT: 02/26/25 1440 Catholic Priest: Procedure Note Donotuseinterpreter, Image - 02/28/20[facility] [address] [place] [address] Mammography Report Signed Patient: Marie LockwoodMR#: [id number] 955 : 1970Acct:[id number] Age/Sex: 54 / FADM Date: 02/26/25 Loc: HO.MAMMO Attending Dr: Luz Marina Pillai MD Ordering Physician: Luz Marina Pearson MDResults: 1Negative Date of Service: 02/26/25Follow Up: 1 Year From Orig inal Mammogram Procedure(s): MM tomosynthesis screening BI Accession Number(s): [id number] cc: Luz Marina Pearson MD Reason For [...] Tomi Robb MD 02/28/2025 10:37 PM EDT RP Dictated By: Tomi Robb MD Signed By: <Electronically signed by Tomi Robb MD in OV> 02/28/252236 DD/ 1420 TD/TT: 02/26/25 1440 Catholic Priest: Luz Marina Pillai MD IMG BI PROCEDURES Shen low Result - Final * Beta-Hydroxybutyrate (02/25/2025 2:30 PM EDT) Beta-Hydroxybut yrate 0.06 0.02 - 0.27 mmol/L [facility] Blood Venous blood specimen / Unknown 02/25/2025 2:30 PM EDT 02/25/2025 3:54 PM EDT Luz Marina Pillai MD LAB BLOOD ORDERABLES Final Result [facility] [address] [place] [phone] * Insulin (02/25/2025 2:30 PM EDT) Insulin 11 2 - 29 uU/mL [facility] Comment:This test was perfor med using [...] BLOOD ORDERABLES Final Result Performing Organization Address [facility] Co de Phone Number [facility] [address] [place] [phone] * Proinsulin (02/25/2025 2:30 PM EDT) Proinsulin 8.4 < OR = 18.8 pmol/L [facility] Comment:This test was perfor med using a laboratory developed ELISAmethod. Values obtained from different assay methods cannotbe used interchangeably. Proinsulin levels, regardless ofvalue, should not be interpreted as absolute evidence of thepresence or absence of disease.This test was developed and its analytical performancecharacteristics have been determined by [employer].It has not been cleared or approved by the FDA. This assayhas been validated pursuant to the CLIA regulations and isused for clinical purposes.THIS TEST WAS PERFORMED AT:[employer] [facility] [id number] [facility] [place] [address]CYLUKJEANIE SINGH MD,PHD,MARTINEZ Blood Venous blood specimen / Unknown 02/25/2025 2:30 PM EDT 02/25/2025 3:54 PM EDT us Luz Marina Pillai MD LAB BLOOD ORDERABLES Final Result Performing Organization Address [facility] Co de Phone Number [facility] [address] [place] [phone] * C-Peptide (02/25/2025 2:30 PM EDT) C-Peptide 2.18 0.80 - 3.85 ng/mL [facility] Comment:THIS TEST WAS PERFOR MED AT:[employer] [facility] [address] [address]XXDMFALYSIA FLOYD MD Blood Venous blood specimen / Unknown 02/25/2025 2:30 PM EDT 02/25/2025 3:54 PM EDT Luz Marina Pillai MD LAB BLOOD ORDERABLES Final Result Performing Organization Address City/[facility]/ZIP Co de Phone Number [facility] [address] [place] [phone] * POCT Hgb A1c (02/23/2025 10:52 [...] TEST EN TER/EDIT ORDERABLES Final Result * Hepatitis C Antibody with Reflex to HCV, RNA, Quantitative, Real-Time PCR (09/03/2024 3:26 PM EDT) Hepatitis C Antibody Nonreactive Nonreactive [facility] Comment:Antibodies to HCV no t detected; does not exclude early acuteHCV infection. Blood Venous blood specimen / Unknown 09/03/2024 3:26 PM EDT 09/03/2024 4:13 PM EDT Fay Patel MD LAB BLOOD ORDERABLES Final Result Performing Organization Address City/[facility]/ZIP Co de Phone Number [facility] [address] [place] [phone] * HIV-1/2 Antigen and Antibodies, Fourth Generation, with Reflexes (09/03/2024 3:26 PM EDT) HIV AB/AG Nonreactive Nonreactive [facility] Comment:HIV-1 p24 Ag and/or HIV-1/HIV-2 Ab not detected.A test result that is nonreactive does not exclude thepossibility of exposure to or infection with HIV-1 and/orHIV-2. Nonreactive results in this assay for individualswith prior exposure to HIV-1 and/or HIV-2 may be due toantigen and antibody levels that are below the limit ofdetection of this assay.The [employer] HIV Ag/Ab Combo assay result andsupplemental assay results should be interpreted inconjunction with the patient's clinical presentation,history and other laboratory results. If the results areinconsistent with clinical evidence, additional testing issuggested to confirm the result. Blood Venous blood specimen / Unknown 09/03/2024 3:26 PM EDT 09/03/2024 4:13 PM EDT Fay Patel MD LAB BLOOD ORDERABLES Final Result [facility] [address] [place] [phone] * Hm Colonoscopy (03/12/2024 2:16 PM EST) Historical Provider HEALTH MAINTENANCE Final Result * HM PAP/HPV (01/28/2024 2:09 PM EDT) Historical Provider HEALTH MAINTENANCE Final Result * (ABNORMAL) HPV E6/E7 RFLX LILIAN 16 18/45 (09/13/2021 2:27 PM EDT) Pathologist [facility] HPV 16 RNA NOT DETECTED NOT DETECTED [facility] HPV 18/45 RNA NOT DETECTED NOT DETECTED [facility] Comment: Methodology: Router Machine Operator Mediated Amplification The analytical performance characteristics of this assay have been determined by [employer]. The modifications have not been cleared or approved by the FDA. This assay has been validated pursuant to the CLIA regulations and is used for clinical purposes. THIS TEST WAS PERFORMED AT: [facility] [address] [address] ALYSIA FLOYD MD HPV mRNA E6/E7 rflx Detected(A) Not Detected [facility] Comment: Methodology: Router Machine Operator-Mediated Amplification This assay detects E6/E7 viral messenger RNA (mRNA) from 14 high-risk HPV types (16,18,31,33,35,39,45,51,52,56,58,59,66,68). The analytical performance characteristics of this assay have been determined by [employer]. The modifications have not been cleared or approved by the FDA. This assay has been validated pursuant to the CLIA regulations and is used for clinical purposes. For additional information, please refer to http://education.Weotta/faq/PQT560n0 (This link if provided for information/ educational purposes only.) THIS TEST WAS PERFORMED AT: [facility] [address] [address] ALYSIA FLOYD MD 09/13/2021 2:27 PM EDT Latisha Dumont HISTORICAL/NON ORDERABLE LABS Fi nal Result [facility] [address] from Last 3 Months or Most Recently Relevant to Health Maintenance Insurance [address] [place], [place] [address] STANDARD Care Teams Construction Carpenter Relationship Specialty Start Date End Date Luz Marina Pearson MD [address] [place] [phone] PCP - General Family Medicine 01/09/18
--- OUTSIDE RECORDS SUMMARY | 2025-04-06 22:56 | XMS_ITS | Encounter Summary ---
Author Organization [employer] Address [address] [facility] [address]t [place] [address] Care Team Providers Care Chalk Molding Machine Operator Name Role Phone Luz Marina Pearson MD Primary Care Provide r Encounter Details Date Type Department Care Team (Late st Contact Info) Description 09/03/2024 Orders Only [facility] [address] [place], [place] [phone] Provider, MD Sergio Social History Tobacco Use [...] Info) Description 04/21/2025 10:45 AM EST Telemedicine [facility] [address] [place] [phone] Luz Marina Pearson MD [address] [place] [phone] 06/23/2025 1:45 PM EST Office Visit [facility] [address] [place] [phone] Luz Marina Pearson MD [address] [place] [phone] documented as of this encounter Procedures Procedure [...] documented as of this encounter Care Teams Chalk Molding Machine Operator Relationship Specialty Start Date End Date Luz Marina Pearson MD [address] [place] [address] PCP - General Family Medicine 01/09/18 documented as of this encounter
--- OUTSIDE RECORDS SUMMARY | 2025-04-06 22:56 | XMS_ITS | Encounter Summary ---
Author Organization [employer] Address [address] [place] [address] 7t [place] [address] Care Team Providers Care Cardiovascular Disease Specialist Name Role Phone Luz Marina Pearson MD Primary Care Provide r Encounter Details Date Type Department Care Team (Late Contact Info) Description 02/01/[address] [phone] Mirtha Cortes Social History Tobacco Use Types [...] Info) Description 04/21/2025 10:45 AM EST Telemedicine [facility] [address] [place] [address] [phone] Luz Marina Pearson MD [address] [place] [phone] 06/23/2025 1:45 PM EST Office Visit [facility] [address] [place] [address] [phone] Luz Marina Pearson MD [address] [place] [address] documented as of this encounter Visit Diagnoses Not on filedocumented in this encounter Additional Health Concerns Assessment Noted Time PHQ-9 Depression Total Score: 0 11/22/19 23 3:07 PM EDT documented as of this encounter Care Teams Cardiovascular Disease Specialist Relationship Specialty Start Date End Date Luz Marina Pearson MD [address] [place] [address] PCP - General Family Medicine 01/09/18 documented as of this encounter
--- OUTSIDE RECORDS SUMMARY | 2025-04-06 23:00 | XMS_ITS | Patient Health Record ---
Author Organization [facility] Address [address] [place] [address] Care Team Providers Care Sanitation Associate Name Role Phone Adarsh Edwards Unavailable [phone] Reason For Referral No Information Plan Of Treatment No Information
== END 2025-04-06 14:06 | disposition home or self-care (01) ==
LOC: HO.XRAY 14:05
PROVIDERS: PCP Internal Medicine; Visit Provider Nurse Practitioner
DX: R13.12 Dysphagia, oropharyngeal phase (principal)
CPT/HCPCS: 74230; 92611

== ENCOUNTER → 2025-04-06 14:30 | Outpatient (BNV) | payer MEDICAID, SELFPAY | PROVIDERS: PCP Internal Medicine; Visit Provider Radiology Diagnostic Radiology | DX: R13.12 Dysphagia, oropharyngeal phase (principal) | CPT/HCPCS: 74230 ==

== ENCOUNTER 2025-04-21 13:45 | Outpatient (REF) | payer MEDICAID, SELFPAY ==
--- NOTE | ~2025-04-21 | XR_ITS ---
EXAMINATION: XR SACRUM AND COCCYX CLINICAL INFORMATION: pain after fall COMPARISON: None available. TECHNIQUE: 2 views of the sacrum and 2 views of the coccyx were obtained. FINDINGS: A surgical clip projects left of midline in the upper pelvis. There is a suture line through the central pelvic region. SI joints are symmetrical and not degenerated. No acute fracture line or deformity is identified. XR/XR sacrum coccyx min 2V IMPRESSION: Surgical changes, no acute radha abnormality. Electronically signed by: Jordin Tong MD 04/21/2025 02:18 PM EST
--- OUTSIDE RECORDS SUMMARY | 2025-04-21 10:45 | XMS_ITS | Encounter Summary ---
Author Organization [employer] Address [address] [place] [address] 7[address] [place] [address] Care Team Providers Care Transit Clerk Name Role Phone Luz Marina Pearson MD Primary Care Provide r Encounter Details Date Type Department Care Team ([facility] st Contact Info) Description 04/21/2025 10:45 AM EST Telemedicine [facility] MEDICINE [address], [place] [phone] Luz Marina Pearson MD [address] [place], [place] [phone] Other hypoglycemia (Primary Dx); Coccygeal pain, acute Social History Tobacco Use Types Packs/Day Years [...] this encounter Functional Status * Over the last 2 weeks, how often have you been bothered by any of the following problems? Question Answer Date of Assessment Author Feeling nervous, anxious, or on edge 0 03/31 10:46 AM Mindy Guerrier MA Not being able to stop or co ntrol worrying 0 04/21/2025 10:46 AM Mindy Guerrier MA Worrying too much about diff erent things 0 04/21/2025 10:46 AM Mindy Guerrier MA Trouble relaxing 0 04/21/2025 10:46 AM Mindy Guerrier MA Being so restless that it is hard to sit still 0 04/21/2025 10:46 AM Mindy Guerrier MA Becoming easily annoyed or irritable 0 03/31 10:46 AM Mindy Guerrier MA Feeling afraid as if somethi ng awful might happen 0 04/21/2025 10:46 AM Mindy Guerrier MA PEMA-7 Total Score 0 04/21/2025 10:46 AM Mindy Guerrier MA documented as of this encounter Progress Notes * Luz Marina iPllai MD - 04/21/2025 10:45 AM EST SUBJECTIVE: Marie Lockwood is a 54 y.o. year old female who presents for Follow up . Marie Lockwood, 54 years Coccygeal Pain After Fall - On April 15, 2025, awoke at 2:00 AM with dry lips, stood up to get lip balm, and experienced afall - Reports pain localized to coccygeal area since the fall - Pain worsened by sitting; able to walk but very slowly - Requires assistance with dressing, daughter helping - Denies head trauma and loss of consciousness at time of fall Hypoglycemia - History of low blood sugar prior to the fall - Denies low blood sugar as cause of fall - Reports current blood sugar is normal, monitoring at home - No recent episodes of low blood sugar Social History Social History Narrative Not on file Problem List[1] Vitamin D deficiency Vaginal discharge Visual impairment [...] ASCUS with positive high risk HPV cervical Coccygeal pain, acute Other hypoglycemia Family History[2] Review of Systems Constitutional: Negative. HENT: Negative. Respiratory: Negative. Cardiovascular: Negative. Musculoskeletal: Positive for arthralgias and back pain. Follow Up: No follow-ups on file. Medications Ordered Prior to Encounter[3] Problem List Items Addressed This Visit Coccygeal pain, acute Relevant Medications acetaminophen (Tylenol Extra Strength) 500 MG tablet Other Relevant Orders XR Sacrum Coccyx 2+ Views Other hypoglycemia - Primary Coccygeal pain, acute: - Coccygeal pain following a fall on April 15, 2025. No head trauma or loss of consciousness. - Prescribed acetaminophen 1000 mg every 8 hours for pain. Ordered coccyx x-ray. Will contact with results. Other hypoglycemia: - No current hypoglycemia. Blood sugar now normal, no recent episodes. [1] Patient Active Problem List Diagnosis Vitamin D deficiency Vaginal discharge Visual impairment [...] ASCUS with positive high risk HPV cervical Coccygeal pain, acute Other hypoglycemia [2] No family history on file. [3] Current Outpatient Medications on File Prior to Visit Medication Sig Dispense Refill Alcohol Swabs 70 % pads Use to test blood sugar 1 time daily 100 each 0 Blood Glucose Monitoring Suppl (MarkitStyle [place] Lite) w/Device kit Use to test blood sugar 1 timedaily 1 kit 0 cetirizine (ZyrTEC) 10 MG tablet TAKE 1 TABLET BY MOUTH ONCE DAILY NEEDED 90 tablet 0 cholecalciferol (Vitamin D-3) 25 MCG (1000 UT) tablet Take 1 tablet (25 mcg) by mouth Once per day.60 tablet 1 Diclofenac Sodium (Voltaren) 1 % gel Use topical BID 100 g 3 fluticasone (Flonase) 50 MCG/ACT nasal spray Administer 1 spray into each nostril 2 times daily. Shake gently. Before first use, prime pump. After use, clean tip and replace cap. 16 g 1 FREESTYLE LITE test strip Use to test blood once a day 100 each 12 Ketotifen Fumarate 0.035 % solution Administer 1 drop into affected eye(s) if needed in the morningand at bedtime (eye redness, itching). 10 mL 0 Lancets [facility] [place] Use to test blood sugar once a day 100 each 0 No current facility-administered medications on file prior to visit. documented in this encounter Plan of Treatment Upcoming Encounters Date Type Department Care Team (Late st Contact Info) Description 06/23/2025 1:45 PM EST Office Visit [facility] [address] [place] [address] Luz Marina Pearson MD [address] [place] [address] documented as of this encounter Procedures Procedure Name Priority Date/Time Associated Diagnosis Comments XR SACRUM COCCYX 2+ VIEWS Routine 04/21/2025 2:05 PM EST Coccygeal pain, acute documented in this encounter Results * XR Sacrum Coccyx 2+ Views (04/21/2025 2:05 PM EST) Anatomical Region Laterality Modality Sacrum, Coccyx Radiographic Carmen ging 04/21/2025 2:05 PM EST Narrative 04/21/2025 2:22 PM EST [facility] [address] [place] [address] XRay Report Signed Patient: Marie Lockwood MR#: [id number] : 1970 Acct:[id number] Age/Sex: 54 / F ADM Date: 04/21/25 Loc: [facility] Attending Dr: Luz Marina Pillai MD Ordering Physician: Luz Marina Pearson MD Date of Service: 04/21/25 Procedure(s): XR sacrum coccyx min 2V Accession Number(s): [id number] cc: Luz Marina Pearson MD Reason for Exam: pain after fall EXAMINATION: XR SACRUM AND COCCYX CLINICAL INFORMATION: pain after fall COMPARISON: None available. TECHNIQUE: 2 views of the sacrum and 2 views of the coccyx were obtained. FINDINGS: A surgical clip projects left of midline in the upper pelvis. There is a suture line through the central pelvic region. SI joints are symmetrical and not degenerated. No acute fracture line or deformity is identified. XR/XR sacrum coccyx min 2V IMPRESSION: Surgical changes, no acute radha abnormality. Electronically signed by: Jordin Tong MD 04/21/2025 02:18 PM EST Dictated By: Jordin Tong MD Signed By: <Electronically signed by Jordin Tong MD in OV> 04/21/25 1418 DD/ 1405 TD/TT: 04/21/25 1408 Chemical Engineering Technician: Procedure Note Donoteaninterpreter, Image - 04/21/2025 [facility] [address] [place] [address] XRay Report Signed Patient: Marie LockwoodMR#: [id number] : 1970Acct:[id number] Age/Sex: 54 / FADM Date: 04/21/25 [facility] Att[facility] Dr: Luz Marina Pillai MD Ordering Physician: Luz Marina Pearson MD Date of Service: 04/21/25 Procedure(s): XR sacrum coccyx min 2V Accession Number(s): [id number] cc: Luz Marina Pearson MD Reason for Exam: pain after fall EXAMINATION: XR SACRUM AND COCCYX CLINICAL INFORMATION: pain after fall COMPARISON: None available. TECHNIQUE: 2 views of the sacrum and 2 views of the coccyx were obtained. FINDINGS: A surgical clip projects left of midline in the upper pelvis. There is a suture line through the central pelvic region. SI joints are symmetrical and not degenerated. No acute fracture line or deformity is identified. XR/XR sacrum coccyx min 2V IMPRESSION: Surgical changes, no acute radha abnormality. Electronically signed by: Jordin Tong MD 04/21/2025 02:18 PM [facility] Dictated By: Jordin Tong MD Signed By: <Electronically signed by Jordin Tong MD in OV> 04/21/25 1418 DD/ 1405 TD/TT: 04/21/25 1408 Chemical Engineering Technician: Luz Marina Pillai MD IMG XR PROCEDURES Shen low Result - Final documented in this encounter Visit Diagnoses Diagnosis Other hypoglycemia- Primary Coccygeal pain, acute documented in this encounter Additional Health Concerns Assessment Noted Time PHQ-9 Depression Total Score: 0 09/04/19 25 2:17 PM EDT documented as of this encounter Care Teams Transit Clerk Relationship Specialty Start Date End Date Luz Marina Pearson MD [address] [place] [address] [place] [address] PCP - General Family Medicine 01/09/18 documented as of this encounter
--- OUTSIDE RECORDS SUMMARY | 2025-04-21 14:58 | XMS_ITS | Encounter Summary ---
Author Organization [employer] Address [address] [facility] 7t [place] [address] Care Team Providers Care Sailing Officer Name Role Phone Luz Marina Pearson MD Primary Care Provide r Encounter Details Date Type Department Care Team (Late st Contact Info) Description 06/04/2024 Telephone [facility] MEDICINE [address] [place], [place] [phone] Luz Marina Pearson MD [address] [place], [place] [phone] Social History Tobacco Use Types Packs/Day Years [...] Description 06/23/2025 1:45 PM EST Office Visit [facility] MEDICINE [address] [place] [phone] Luz Marina Pearson MD [address] [place] [phone] documented as of this encounter Visit Diagnoses Not on filedocumented in this encounter Additional Health Concerns Assessment Noted Time PHQ-9 Depression Total Score: 0 11/22/19 23 3:07 PM EDT documented as of this encounter Care Teams Sailing Officer Relationship Specialty Start Date End Date Luz Marina Pearson MD [address] [place] [phone] PCP - General Family Medicine 01/09/18 documented as of this encounter
--- OUTSIDE RECORDS SUMMARY | 2025-04-21 14:58 | XMS_ITS | Encounter Summary ---
Author Organization [employer] Address [address] [facility] 7t [place] [address] Care Team Providers Care Instrumental Music Teacher Name Role Phone Luz Marina Pearson MD Primary Care Provide r Encounter Details Date Type Department Care Team (Late st Contact Info) Description 09/03/2024 Orders Only [facility]S [address] [place], [place] [phone] Provider, MD Sergio Social History Tobacco Use [...] Upcoming Encounters Date Type Department Care Team ([facility] st Contact Info) Description 06/23/2025 1:45 PM EST Office Visit [facility] MEDICINE [address] [place] [phone] Luz Marina Pearson MD [address] [place] [address] documented as of this encounter Procedures Procedure [...] documented as of this encounter Care Teams Instrumental Music Teacher Relationship Specialty Start Date End Date Luz Marina Pearson MD [address] [place] [address] PCP - General Family Medicine 01/09/18 documented as of this encounter
--- OUTSIDE RECORDS SUMMARY | 2025-04-21 14:58 | XMS_ITS | Encounter Summary ---
Author Organization [employer] Address [address] [place] [address] 7t [place] [address] Care Team Providers Care Retail And Promotions Coordinator Name Role Phone Luz Marina Pearson MD Primary Care Provide r Encounter Details Date Type Department Care Team (Late st Contact Info) Description 11/16/2022 Abstract [facility] MEDICINE [address] [place] [phone] Luz Marina Pearson MD [address] [place] [address] [phone] Social History Tobacco Use Types Packs/Day Years [...] Description 06/23/2025 1:45 PM EST Office Visit [facility] [address] [place] [phone] Luz Marina Pearson MD [address] [place] [phone] documented as of this encounter Procedures Procedure Name Priority Date/Time Associated Diagnosis Comments COLONOSCOPY Routine 10/04/2021 documented in this encounter Results * Colonoscopy (10/04/2021) Colonoscopy Normal Normal Narrative Mirtha Cortes - 10/04/2021 Recommended 8-12 month follow up due to large polyps ([facility] [place] Ramón Rossi MD HEALTH MAINTENANCE Final Result documented in this encounter Visit Diagnoses Not on filedocumented in this encounter Care Teams Retail And Promotions Coordinator Relationship Specialty Start Date End Date Luz Marina Pearson MD [address] [place] [phone] PCP - General Family Medicine 01/09/18 documented as of this encounter
--- OUTSIDE RECORDS SUMMARY | 2025-04-21 14:58 | XMS_ITS | Encounter Summary ---
Author Organization [employer] Address [address] [place] [address] [address] [place] [address] Care Team Providers Care Wrapper Stitcher Name Role Phone Luz Marina Pearson MD Primary Care Provide r Reason for Visit * Reason Onset Date Comments chart prep 04/20/2025 Encounter Details Date Type Department Care Team ([facility] st Contact Info) Description 04/20/2025 Telephone [facility] MEDICINE [address] [place], [place] [phone] Luz Marina Pearson MD [address] [place], [place] [phone] chart prep Social History Tobacco Use Types Packs/Day Years [...] encounter Miscellaneous Notes * Telephone Encounter - Farideh Diaz MA - 04/20/2025 1:23 PM EST Chart Prep Labs: not done from 02/23/25 Images: done Referrals: appointment pending for nutrition Vaccines due: Covid Screenings: colonoscopy, pap smear, and LMP Overdue care gaps: SBIRT and PEMA-7 documented in this encounter Plan of Treatment Upcoming Encounters Date Type Department Care Team (Late st Contact Info) Description 06/23/2025 1:45 PM EST Office Visit [facility] MEDICINE [address] [place] [address] Luz Marina Pearson MD [address] [place] [address] documented as of this encounter Visit Diagnoses Not on filedocumented in this encounter Additional Health Concerns Assessment Noted Time PHQ-9 Depression Total Score: 0 09/04/19 25 2:17 PM EDT documented as of this encounter Care Teams Wrapper Stitcher Relationship Specialty Start Date End Date Luz Marina Pearson MD [address] [place] [phone] PCP - General Family Medicine 01/09/18 documented as of this encounter
--- OUTSIDE RECORDS SUMMARY | 2025-04-21 14:58 | XMS_ITS | Patient Health Record ---
Author Organization [facility] Address [address] [place] [address] Care Team Providers Care Employee Communications Specialist Name Role Phone Adarsh Edwards Unavailable [phone] Reason For Referral No Information Plan Of Treatment No Information
--- OUTSIDE RECORDS SUMMARY | 2025-04-21 14:58 | XMS_ITS | Encounter Summary ---
Author Organization [employer] Address [address] [facility] 7t [place] [address] Care Team Providers Care Mechanical Inspector Name Role Phone Luz Marina Pearson MD Primary Care Provide r Encounter Details Date Type Department Care Team (Late st Contact Info) Description 03/26/2023 Abstract [facility] MEDICINE [address] [place], [place] [phone] Mirtha Cortes Social History Tobacco Use Types [...] Description 06/23/2025 1:45 PM EST Office Visit [facility] MEDICINE [address] [place] [address] Luz Marina Pearson MD [address] [place], [place] [phone] documented as of this encounter Procedures Procedure [...] documented as of this encounter Care Teams Mechanical Inspector Relationship Specialty Start Date End Date Luz Marina Pearson MD [address] [place], [place] [phone] PCP - General Family Medicine 01/09/18 documented as of this encounter
--- OUTSIDE RECORDS SUMMARY | 2025-04-21 14:58 | XMS_ITS | Clinical Summary ---
Author Organization [employer] Address [address] [place] [address] 7[address] [place] [address] Care Team Providers Care Luncheonette Manager Name Role Phone Luz Marina Pearson [...] 5 Active Blood Glucose Monitoring Suppl (FreeStyle Kanaranzi Lite) w/Device kitIndications: Hypoglycemia Use to test blood sugar 1 time daily 1 kit Active acetaminophen (Tylenol Extra Strength) 500 MG tabletIndicatio ns:Coccygeal pain, acute Take 2 tablets (1,000 mg) by mouth every 8 (eight) hours if needed for moderate pain for up to 10 days. 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 02/23/2025 Cervical radiculopathy 02/23/2025 Chronic sinusitis 02/23/2025 Dysplasia of cervix, low grade (EBTH 1) Epigastric pain 02/23/2025 GERD (gastroesophageal reflux [...] 2:56 PM EST): 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 by flame cutter Assessment & Plan (04/20/2023 3:07 PM EST): 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 with GRIPPER MACHINE OPERATOR Encounter for preventative adult health care exa [...] AM EDT): Apply heat on affected area Jeff of gabapentin and baclofen Referral to pain management Allergic rhinitis 11/16/2022 Vitamin D deficiency 03/14/2012 Overview (09/03/2024): Lab Results Component Value Date [id number] 27.2 (L) 05/08/2024 - continue cholecalciferol (Vitamin D-3) 25 MCG (1000 UT) tablet Assessment & Plan (09/03/2024 2:04 PM EDT): Lab Results Component Value Date [id number] 27.2 (L) 05/08/2024 - continue cholecalciferol (Vitamin D-3) 25 MCG (1000 UT) tablet Osteoporosis 03/14/2012 Encounters Date Type Department Care Team Description 04/21/2025 10:45 AM EST Telemedicine [facility] [address] [place] [phone] Luz Marina Pearson MD Other hypoglycemia (Primary Dx); Coccygeal pain, acute 04/21/2025 Travel 04/20/2025 Telephone [facility] [address] [place] [address] Luz Marina Pearson MD chart prep 04/14/2025 Travel 04/06/2025 Orders Only [facility] External Provider, [facility] 03/16/2025 1:30 PM EST Office Visit [facility] [address] [place] [address] Luz Marina Pearson MD Hypoglycemia 03/16/2025 Travel 03/15/2025 Travel 02/26/2025 Orders Only [facility] [address] [place] [address] Luz Marina Pearson MD 02/25/2025 1:30 PM EDT Office Visit [facility] OPTOM[facility] [address] [place] [address] Glenn Imani, OD Presbyopia (Primary Dx) 02/25/2025 Travel 02/23/2025 10:45 AM EDT Office Visit [facility] [address] [place] [address] Luz Marina Pearson MD Hypoglycemia; Dysphagia, unspecified type; Encounter for immunization 02/23/2025 Travel 02/20/[address] [address] Luz Marina Pearson MD Chart Prep 02/19/2025 Travel 02/18/[address] [address] Luz Marina Pearson MD Nurse Triage 01/28/2025 9:00 AM EDT Office Visit [facility] [address] [place] [address] Nolberto Elizabethn, OD Presbyopia (Primary Dx); Dry eyes; Early cataracts, bilateral 01/28/2025 Travel 01/21/2025 Travel from Last 3 Months Immunizations Immunization Administration [...] Description 06/23/2025 1:45 PM EST Office Visit [facility] [address], [place] [phone] Luz Marina Pearson MD [address] [place], [place] [phone] Health Maintenance Due Date Last Done Comments CT Colonography 1971 FIT DNA/Cologuard 1971 FIT 1971 FOBT 1970 Sigmoidoscopy 1971 COVID-19 Vaccine ( season) 2024 Colonoscopy 03/12/2025 03/12/2024, 02/28, 03/21/2023, Additional history exists Colorectal Cancer Screening 03/12/2025 Cervical Cancer Screening 03/25/2025 HPV/Cotest 03/25/2025 09/13/2021, 08/28, 09/07/2020, Additional history exists Pap Smear 03/25/2025 01/28/2024, 11/27/2022 SDOH Screening 08/25/2025 08/25/2024 Depression Screening 09/03/2025 09/03/2024, 09/04/19 25 Mammogram 02/26/2026 02/26/2025, 01/29, 08/22/2022, Additional history exists Tobacco Screening 03/16/2026 03/16/2025 Disability Screening 04/14/2026 04/14/2025 Alcohol/Substance Use Screening 04/21/2026 04/21/2025 DTaP/Tdap/Td Vaccines (3 - Td or Tdap) [...] 04/21/2025 2:05 PM EST Coccygeal pain, acute FL BARIUM SWALLOW MODIFIED Routine 04/06/2025 2:35 PM EST BI MAMMOGRAM SCREENING TOMOSYNTHESIS BILATERAL Routine 02/26/2025 2:20 PM EDT BETA-HYDROXYBUTYRATE Routine 02/25/2025 2:30 PM EDT Hypoglycemia PROINSULIN Routine 02/25/2025 2:30 PM EDT Hypoglycemia C-PEPTIDE Routine 02/25/2025 2:30 PM EDT Hypoglycemia INSULIN Routine 02/25/2025 2:30 PM EDT Hypoglycemia POCT GLYCATED HEMOGLOBIN, TOTAL Routine 02/23/2025 10:52 AM EDT Hypoglycemia POCT GLUCOSE (CPT-07312) Routine 02/23/2025 10:52 AM EDT Hypoglycemia HEPATITIS [...] Recently Relevant to Health Maintenance Results * XR Sacrum Coccyx 2+ Views (04/21/2025 2:05 PM EST) Anatomical Region Laterality Modality Sacrum, Coccyx Radiographic Carmen ging 04/21/2025 2:05 PM EST Narrative 04/21/2025 2:22 PM EST [address] [address] XRay Report Signed Patient: Marie Lockwood MR#: [id number] 955 : 1970 Acct:[id number] Age/Sex: 54 / F ADM Date: 04/21/25 Loc: HO.HHCX Attending Dr: Luz Marina Pillai MD Ordering Physician: Luz Marina Pearson MD Date of Service: 04/21/25 Procedure(s): XR sacrum coccyx min 2V Accession Number(s): [id number] cc: Luz Marina Pearson MD Reason for [...] 04/21/25 1418 DD/ 1405 TD/TT: 04/21/25 1408 Shaper And Presser: Procedure Note Donotuseinterpreter, Image - 04/21/[address] [address] XRay Report Signed Patient: Ameya Lockwood#: [id number] 955 : 1970Acct:[id number] Age/Sex: 54 / FADM Date: 04/21/25 Loc: HO.HHCX Attending Dr: Luz Marina Pillai MD Ordering Physician: Luz Marina Pearson MD Date of Service: 04/21/25 Procedure(s): XR sacrum coccyx min 2V Accession Number(s): [id number] cc: Luz Marina Pearson MD Reason for [...] Jordin Tong MD 04/21/2025 02:18 PM EST RP Dictated By: Jordin Tong MD Signed By: <Electronically signed by Jordin Tong MD in OV> 04/21/25 1418 DD/ 1405 TD/TT: 04/21/25 1408 Shaper And Presser: Luz Marina Pillai MD IMG XR PROCEDURES Shen low Result - Final * FL BARIUM SWALLOW MODIFIED (04/06/2025 2:35 PM EST) Anatomical Region Laterality Modality Head, Neck Radiographic Carmen ging 04/06/2025 2:35 PM EST Narrative 04/06/2025 3:56 PM EST [place] [address] Fluoroscopy Report Signed Patient: Marie Lockwood MR#: [id number] 955 : 1970 Acct:[id number] Age/Sex: 54 / F ADM Date: 04/06/25 Loc: TIERNEY Attending Dr: Erica GONCALVES Ordering Physician: Erica Tello Date of Service: 04/06/25 Procedure(s): FL Modified Barium Swallow Accession Number(s): [id number] cc: Luz Marina Pearson MD; Erica Tello [...] 04/06/25 1553 DD/ 1435 TD/TT: 04/06/25 1450 Shaper And Presser: DEUCE Procedure Note Donotuseinterpreter, Image - 04/06/[address] [address] Fluoroscopy Report Signed Patient: Marie LockwoodMR#: [id number] 955 : 1970Acct:[id number] Age/Sex: 54 / FADM Date: 04/06/25 Loc: TIERNEY Attending Dr: Erica GONCALVES Ordering Physician: Erica Tello Date of Service: 04/06/25 Procedure(s): FL Modified Barium Swallow Accession Number(s): [id number] cc: Luz Marina Pearson MD; Erica Tello [...] Tenorio MD in OV> 04/06/25 1553 DD/ TD/TT: 04/06/25 1450 Shaper And Presser: DEUCE Authorconsuelo Provider Result Type Result Stat [facility] External Provider IMG FLU OROSCOPY PROCEDURES Final Result * BI Mammogram Screening Tomosynthesis Bilateral (02/26/2025 2:20 PM EDT) Anatomical Region Laterality Modality Breast Bilateral Mammography 02/26/2025 2:2 0 PM EDT Narrative 02/28/2025 10:40 PM EDT [address] [place] [address] Mammography Report Signed Patient: Marie Lockwood MR#: [id number] 955 : 1970 Acct:[id number] Age/Sex: 54 / F ADM Date: 02/26/25 Loc: HO.MAMMO Attending Dr: Luz Marina Pillai MD Ordering Physician: Luz Marina Pearson MD Results: 1Negative Date of Service: 02/26/25 Follow Up: 1 Year From Orig inal Mammogram Procedure(s): MM tomosynthesis screening BI Accession Number(s): [id number] cc: Luz Marina Pearson MD Reason For [...] by Tomi Robb MD in OV> 02/28/25 2237 DD/ 1420 TD/TT: 02/26/25 1440 Shaper And Presser: Procedure Note Donotuseinterpreter, Image - 02/28/2025 Jose Luis [facility] [address] [place] [address] Mammography Report Signed Patient: Ameya Lockwood#: [id number] 955 : 1970Acct:[id number] Age/Sex: 54 / FADM Date: 02/26/25 Loc: HO.MAMMO Attending Dr: Luz Marina Pillai MD Ordering Physician: Luz Marina Pearson MDResults: 1Negative Date of Service: 02/26/25Follow Up: 1 Year From Orig inal Mammogram Procedure(s): MM tomosynthesis screening BI Accession Number(s): [id number] cc: Luz Marina Pearson MD Reason For [...] by Tomi Robb MD in OV> 02/28/25 0197 DD/ 1420 TD/TT: 02/26/25 1440 Shaper And Presser: Luz Marina Pillai MD IMG BI PROCEDURES Shen low Result - Final * Beta-Hydroxybutyrate (02/25/2025 2:30 PM EDT) Beta-Hydroxybut yrate 0.06 0.02 - 0.27 mmol/L [facility] Blood Venous blood specimen / Unknown 02/25/2025 2:30 PM EDT 02/25/2025 3:54 PM EDT Luz Marina Pillai MD LAB BLOOD ORDERABLES Final Result [facility] [address] [place] [phone] * Insulin (02/25/2025 2:30 PM EDT) Insulin 11 2 - 29 uU/mL [facility] Comment:This test was perfor med [...] Final Result Performing Organization Address [facility]/ZIP Co de Phone Number [facility] [address] [place] [address] [phone] * Proinsulin (02/25/2025 2:30 PM EDT) Proinsulin 8.4 < OR = 18.8 pmol/L [facility] Comment:This test was perfor med using a laboratory developed ELISAmethod. Values obtained from different assay methods cannotbe used interchangeably. Proinsulin levels, regardless ofvalue, should not be interpreted as absolute evidence of thepresence or absence of disease.This test was developed and its analytical performancecharacteristics have been determined by [facility].It has not been cleared or approved by the FDA. This assayhas been validated pursuant to the CLIA regulations and isused for clinical purposes.THIS TEST WAS PERFORMED AT:[employer]/[place] [id number] [facility] [address]QWVLLJEANIE SINGH MD,PHD,MARTINEZ Blood Venous blood specimen / Unknown 02/25/2025 2:30 PM EDT 02/25/2025 3:54 PM EDT Luz Marina Pillai MD LAB BLOOD ORDERABLES Final Result Performing Organization Address [facility]/ZIP Co de Phone Number [facility] [address] [place] [address] [phone] * C-Peptide (02/25/2025 2:30 PM EDT) C-Peptide 2.18 0.80 - 3.85 ng/mL [facility] Comment:THIS TEST WAS PERFOR MED AT:[employer] [address] [address]NUEMRALYSIA FLOYD MD Blood Venous blood specimen / Unknown 02/25/2025 2:30 PM EDT 02/25/2025 3:54 PM EDT Luz Marina Pillai MD LAB BLOOD ORDERABLES Final Result Performing Organization Address City/[facility]/ZIP Co de Phone Number [facility] [address] [place] [address] [phone] * POCT Hgb A1c (02/23/2025 10:52 [...] PM EDT) Hepatitis C Antibody Nonreactive Nonreactive [facility] Comment:Antibodies to HCV no t detected; does not exclude early acuteHCV infection. Blood Venous blood specimen / Unknown 09/03/2024 3:26 PM EDT 09/03/2024 4:13 PM EDT Fay Patel MD LAB BLOOD ORDERABLES Final Result Performing Organization Address City/[facility]/ZIP Co de Phone Number [facility] [address] [place] [address] [phone] * HIV-1/2 Antigen and Antibodies, Fourth Generation, with Reflexes (09/03/2024 3:26 PM EDT) HIV AB/AG Nonreactive Nonreactive [facility] Comment:HIV-1 p24 Ag and/or HIV-1/HIV-2 Ab not detected.A test result that is nonreactive does not exclude thepossibility of exposure to or infection with HIV-1 and/orHIV-2. Nonreactive results in this assay for individualswith prior exposure to HIV-1 and/or HIV-2 may be due toantigen and antibody levels that are below the limit ofdetection of this assay.The Pixalate HIV Ag/Ab Combo assay result andsupplemental assay results should be interpreted inconjunction with the patient's clinical presentation,history and other laboratory results. If the results areinconsistent with clinical evidence, additional testing issuggested to confirm the result. Blood Venous blood specimen / Unknown 09/03/2024 3:26 PM EDT 09/03/2024 4:13 PM EDT Fay Patel MD LAB BLOOD ORDERABLES Final Result [facility] [address] [place] [phone] * Hm Colonoscopy (03/12/2024 2:16 PM EST) Historical Provider HEALTH MAINTENANCE Final Result * HM PAP/HPV (01/28/2024 2:09 PM EDT) Historical Provider HEALTH MAINTENANCE Final Result * (ABNORMAL) HPV E6/E7 RFLX LILIAN 16 18/45 (09/13/2021 2:27 PM EDT) Pathologist [facility] HPV 16 RNA NOT DETECTED NOT DETECTED [facility] HPV 18/45 RNA NOT DETECTED NOT DETECTED [facility] Comment: Methodology: [employer] Bi Administrator Mediated Amplification The analytical performance characteristics of this assay have been determined by [facility]. The modifications have not been cleared or approved by the FDA. This assay has been validated pursuant to the CLIA regulations and is used for clinical purposes. THIS TEST WAS PERFORMED AT: [employer] [address] [address] ALYSIA FLOYD MD HPV mRNA E6/E7 rflx Detected(A) Not Detected [facility] Comment: Methodology: [employer] Bi Administrator-Mediated Amplification This assay detects E6/E7 viral messenger RNA (mRNA) from 14 high-risk HPV types (16,18,31,33,35,39,45,51,52,56,58,59,66,68). The analytical performance characteristics of this assay have been determined by [facility]. The modifications have not been cleared or approved by the FDA. This assay has been validated pursuant to the CLIA regulations and is used for clinical purposes. For additional information, please refer to http://education.[employer]/faq/EXX324u7 (This link if provided for information/ educational purposes only.) THIS TEST WAS PERFORMED AT: [facility] [address],[place] [address] ALYSIA FLOYD MD 09/13/2021 2:27 PM EDT us Latisha Dumont HISTORICAL/NON ORDERABLE LABS Fi nal Result Performing Organization Address City/State/[facility] Co de Phone Number [facility]ly [facility], [address] from Last 3 Months or Most Recently Relevant to Health Maintenance Insurance C3 Care Teams Luncheonette Manager Relationship Specialty Start Date End Date Luz Marina Pearson MD [address] [place] [phone] PCP - General Family Medicine 01/09/18
--- OUTSIDE RECORDS SUMMARY | 2025-04-21 14:58 | XMS_ITS | Encounter Summary ---
Author Organization [employer] Address [address] [facility] [address]t [place] [address] Care Team Providers Care Assistant Director Name Role Phone Luz Marina Pearson MD Primary Care Provide r Encounter Details Date Type Department Care Team (Latest Contact Info) Description 04/21/2025 Travel Social History Tobacco Use Types Packs/Day [...] 06/23/2025 1:45 PM EST Office Visit [facility] [address] [place] [phone] Luz Marina Pearson MD [address] [place] [phone] documented as of this encounter Visit Diagnoses Not on filedocumented in this encounter Additional Health Concerns Assessment Noted Time PHQ-9 Depression Total Score: 0 09/04/19 25 2:17 PM EDT documented as of this encounter Care Teams Assistant Director Relationship Specialty Start Date End Date Luz Marina Pearson MD [address] [place] [phone] PCP - General Family Medicine 01/09/18 documented as of this encounter
--- OUTSIDE RECORDS SUMMARY | 2025-04-21 14:58 | XMS_ITS | Encounter Summary ---
Author Organization [employer] Address [address] [place] [address] [address] [place] [address] Care Team Providers Care Energy Technician Name Role Phone Luz Marina Pearson MD Primary Care Provide r Encounter Details Date Type Department Care Team (Late st Contact Info) Description 02/01/2023 Abstract [facility] [address] [place] [phone] Mirtha Cortes Social History Tobacco Use Types [...] Description 06/23/2025 1:45 PM EST Office Visit [facility] [address] [place] [phone] Luz Marina Pearson MD [address] [place], [place] [phone] documented as of this encounter Visit Diagnoses Not on filedocumented in this encounter Additional Health Concerns Assessment Noted Time PHQ-9 Depression Total Score: 0 11/22/19 23 3:07 PM EDT documented as of this encounter Care Teams Energy Technician Relationship Specialty Start Date End Date Luz Marina Pearson MD [address] [place] [address] PCP - General Family Medicine 01/09/18 documented as of this encounter
== END 2025-04-21 13:46 | disposition home or self-care (01) ==
LOC: HO.HHCX 13:45
PROVIDERS: PCP Internal Medicine; Visit Provider Internal Medicine
DX: M53.3 Sacrococcygeal disorders, not elsewhere classified (principal)
CPT/HCPCS: 72220

== ENCOUNTER → 2025-04-21 13:51 | Outpatient (BNV) | payer MEDICAID, SELFPAY | PROVIDERS: PCP Internal Medicine; Visit Provider Radiology Diagnostic Radiology | DX: M53.3 Sacrococcygeal disorders, not elsewhere classified (principal); Z04.3 Encounter for examination and observation following other accident | CPT/HCPCS: 72220 ==